=== PATIENT | female | born 1965 | race Caucasian/White ===

== ENCOUNTER → 2018-01-04 10:20 | Outpatient (CLI) | payer MEDICARE, SELFPAY ==
--- NOTE | 2018-01-04 10:27 | XR_ITS ---
XR chest 2V Ordering Physician: LIONEL Maya Patient Age: 52 years: Female HISTORY: ITS.REASON: LT RIB PAIN Left rib pain left chest pain fell on left side 1 week ago when she reached for something. TECHNIQUE: PA and lateral chest COMPARISON :June 2014 chest PA and lateral. Portable chest 09/29/2014. Rib series October [address] abdomen which includes lung bases FINDINGS No discrete acute findings in the chest. No new findings since 2013. No pneumothorax. No definitive pleural effusion... Question mild chronic blunting the right posterior sulcus . No obvious rib fracture on the standard chest film. Underlying COPD & chronic changes are again noted. Coarsening of markings and fibrotic appearing changes most evident toward the lung bases along with some minimal linear scarring lung bases. The heart is normal size. There is normal pulmonary vascularity. Hilar regions appear stable. Calcified azygous node reflects old remote disease. Mediastinum unremarkable. Chest wall and T-spine stable. IMPRESSION Nothing definitely acute. . COPD with chronic lung changes. Fibrotic changes and scarring most evident towards the lung bases In regards to recent left chest no obvious rib fracture, no pneumothorax. No pleural effusion
== END ==
PROVIDERS: PCP Family Medicine; Visit Provider Physician Assistant
DX: R07.81 Pleurodynia (principal)
CPT/HCPCS: 71046

== ENCOUNTER 2018-07-31 15:15 | Observation (INO) ==
--- NOTE | 2018-07-31 16:25 | History & Physical Report ---
*Admission Date: 07/31/18 <Christine Harper 07/31/18 16:45> *Chief complaint: Abdominal pain with intractable nausea and vomiting <Christine Harper 07/31/18 16:45> *History of present illness: Ms. Serrato is a 53-year-old female with a history of multiple sclerosis, mitral valve prolapse, diverticulosis, hypertension, hyperlipidemia, and persistent asthmatic bronchitis who initially presented to [facility] emergency room in the early a.m. of 07/31/2018 with mild abdominal pain of a couple of days duration and then followed by nausea and vomiting. She described having abdominal pain times 3 days which really progressed withni a few hours prior to presentation. White blood cell count was 13,000. She was given 2 L of IV fluids, Toradol and Zofran IV. CT of the abdomen revealed mildly distended small bowel loop in the lower abdomen with differential to include partial small bowel obstruction versus enteritis. Patient refused admission at this point. Patient then presented to the office of [facility] and was seen by Dr. Norton. At time of this presentation patient was having severe abdominal pain localized around her umbilicus. She describes having 2 large stools yesterday. She gave herself an enema without results today. She was concerned that her colon had ruptured. She continued to vomit and had been unable to retain liquids. She denied hematemesis, melena, and hematochezia. She denied fever. At this time patient was agreeable to admission to [facility] and was admitted. <Christine Harper 07/31/18 16:45> [facility] History Medical History: Reports:: Gastroesophageal Reflux Disease(GERD), Hypertension, Kidney Stones Denies:: Atherosclerotic Heart Disease, Cancer, Diabetes Mellitus Type 1, Diabetes Mellitus Type 2 <Christine Harper 07/31/18 16:45> Have you ever received a pneumonia vaccine?: No <Christine Harper 07/31/18 16:45> Have you received a flu vaccine this season?: No <Christine Harper 07/31/18 16:45> Laterality Cases: Bilateral: Carpal Tunnel Release <Christine Harper 07/31/18 16:45> Other Surgeries: Yes: Cardiac Catheterization, Cholecystectomy, Hysterectomy- Total, Tubal Ligation, Other <Christine Harper 07/31/18 16:45> Amputation: No <HarperChristine 07/31/18 16:45> Comment: D&C in 2003; hemicolectomy with colostomy for ruptured diverticulitis in 2004; reversal of the colostomy 2005; bladder and urethra procedure 2011 <MeredithChristine 07/31/18 16:45> - *Social History Educational Level: Completed High School <MeredithChristine 07/31/18 16:45> Smoking Status: Current every day smoker <Harper,Christine 07/31/18 16:45> Tobacco Type: cigarettes <Harper,Christine 07/31/18 16:45> Alcohol Intake: never <MeredithChristine 07/31/18 16:45> Occupational Status: disabled <Harper,Christine 07/31/18 16:45> Housing: house <Harper,Christine 07/31/18 16:45> Household Members: spouse <Harper,Christine 07/31/18 16:45> Travel in the last 8 weeks: None <Harper,Christine 07/31/18 16:45> - Psychiatric History Expresses thoughts of harming self/others: None <Harper,Christine 07/31/18 16:45> Suicide Plan Description: No Plan <HarperChristine 07/31/18 16:45> *Family Hx:: Cancer, Coronary Artery Disease, Diabetes <Harper,Christine 07/31/18 16:45> Review of Systems - Constitutional Denies fever(s), Denies headache(s) <Christine Harper 07/31/18 16:45> - ENT Denies ear pain, Denies nasal congestion, Denies sore throat <MeredithChristine 07/31/18 16:45> - *Cardiovascular Denies chest pain, Denies shortness of breath <Christine Harper 07/31/18 16:45> - *Respiratory Reports cough, Denies chest congestion, Denies shortness of breath <Christine Harper 07/31/18 16:45> - *Gastrointestinal Reports abdominal pain (Comes in waves and is severe), Reports constipation, Reports vomiting <Christine Harper 07/31/18 16:45> - *Genitourinary Denies difficulty urinating <HarperChristine dietz - 07/31/18 16:45> - *Musculoskeletal Denies abnormal walking <HarperChristine - 07/31/18 16:45> - *Neurologic Denies abnormal walking, Denies dizziness <Christine Harper - 07/31/18 16:45> Meds Home Medications Medication Instructions Recorded Confirmed Type Bisoprol/Hydrochlorothiazide 1 each PO DAILY 07/30/18 07/31/18 History [Bisoprolol-Hctz 2.5-6.25 mg Tb] Aspirin [Aspirin 81mg chewable 81 mg PO DAILY 07/31/18 07/31/18 History tab] Esomeprazole Magnesium [Nexium] 40 mg PO DAILY PRN 07/31/18 07/31/18 History Mometasone/Formoterol [Dulera 100 8.8 gm IH BID 07/31/18 07/31/18 History Mcg/5 Mcg Inhaler] <Martinez Norton - 07/31/18 17:09> Allergies Allergy/AdvReac Type Severity Reaction Status Date / Time hydrocodone [From LORTAB] Allergy Mild NA-NAUSEA/V Verified 07/31/18 00:44 OMITING <Martinez Norton - 07/31/18 17:09> Exam Vital signs and Labs for Last 24 Hours: Temp Pulse Resp BP Pulse Ox 97.9 F 73 22 134/117 H 98 07/31/18 15:52 07/31/18 15:52 07/31/18 15:52 07/31/18 15:52 07/31/18 15:52 Laboratory Results - last 24 hr 07/31/18 16:05: WBC 13.5 H, RBC 4.93, Hgb 15.1, Hct 45.7, MCV 92.7, MCH 30.6, MCHC 33.0, RDW 13.0, Plt Count 271, MPV 6.8 L, Neut % (Auto) 76.0, Lymph % (Auto) 17.5, Kle[place] % (Auto) 5.4, Eos % (Auto) 0.7, Baso % (Auto) 0.4, Neut # (Auto) 10.3 H, Lymph # (Auto) 2.4, Kle[place] # (Auto) 0.7, Eos # (Auto) 0.1, Baso # (Auto) 0.1 07/31/18 16:05: Sodium 141, Potassium 3.8, Chloride 104, Carbon Dioxide 26, Anion Gap 14.8, BUN 15, Creatinine 0.73, Estimated Creat Clear 130, Estimated GFR 83, Est GFR ( Amer) 100, Glucose 128 H, Calcium 8.7, Total Bilirubin 0.7, AST 16, ALT 23, Alkaline Phosphatase 82, Total Protein 7.4, Albumin 3.5, Globulin 3.9 H, Albumin/Globulin Ratio 0.9 L <Martinez Norton - 07/31/18 17:09> Temp Pulse Resp BP Pulse Ox 97.9 F 73 22 134/117 H 98 07/31/18 15:52 07/31/18 15:52 07/31/18 15:52 07/31/18 15:52 07/31/18 15:52 <MeredithChristine - 07/31/18 16:45> I & O for Last 24 hours: Intake & Output 07/29/18 07/30/18 07/31/18 08/01/18 11:59 11:59 11:59 11:59 Weight 208 lb <Martinez Norton - 07/31/18 17:09> Intake & Output 07/29/18 07/30/18 07/31/18 08/01/18 11:59 11:59 11:59 11:59 Weight 208 lb <HarperChristine - 07/31/18 16:45> - Constitutional obese <Christine Harper 07/31/18 16:45> Comments: Sitting in chair in exam room. She is very uncomfortable and having difficulty sitting still. <Christine Harper - 07/31/18 16:45> - *Routine HEENT Exam Head: Present: normocephalic, atraumatic <Christine Harper 07/31/18 16:45> Eye: Present: PERRL. Absent: conjunctival icterus, scleral injection <Christine Harper 07/31/18 16:45> ENT: Present: mucous membranes moist, oropharynx clear <Christine Harper 07/31/18 16:45> - *Routine Neck Exam Present: supple. Absent: carotid bruit, lymphadenopathy, thyromegaly <Christine Harper 01/15/19 16:45> - *Routine Respiratory Exam Present: CTA bilaterally (Anteriorly and posteriorly) <Christine Harper 07/31/18 16:45> - *Routine Cardiovascular Exam Present: RRR <Christine Harper 07/31/18 16:45> - *Routine Abdominal Exam Present: tenderness (Across mid abdomen), distended <Christine Harper 07/31/18 16:45> Comments: Obese <Christine Harper 07/31/18 16:45> - *Routine Extremities Exam Absent: edema, calf tenderness <Christine Harper 07/31/18 16:45> - *Routine Neurological Exam Present: alert, oriented X3 <Christine Harper 07/31/18 16:45> Assessment and Plan (1) Abdominal pain Current visit: No Status: Acute Qualifiers: Abdominal location: periumbilical Qualified Code(s): R10.33 - Periumbilical pain Category: Medical Code(s): R10.9 - Unspecified abdominal pain (2) Intractable nausea and vomiting Current visit: Yes Status: Acute Category: Medical Code(s): R11.2 - Nausea with vomiting, unspecified (3) Hypertension Current visit: Yes Status: Chronic Category: Medical Code(s): I10 - Essential (primary) hypertension (4) Multiple sclerosis Current visit: Yes Status: Chronic Category: Medical Code(s): G35 - Multiple sclerosis <Martinez Norton - 07/31/18 17:09> (1) Abdominal pain Current visit: No Status: Acute Qualifiers: Abdominal location: periumbilical Qualified Code(s): R10.33 - Periumbilical pain Category: Medical Code(s): R10.9 - Unspecified abdominal pain (2) Intractable nausea and vomiting Current visit: Yes Status: Acute Category: Medical Code(s): R11.2 - Nausea with vomiting, unspecified (3) Hypertension Current visit: Yes Status: Chronic Category: Medical Code(s): I10 - Essential (primary) hypertension (4) Multiple sclerosis Current visit: Yes Status: Chronic Category: Medical Code(s): G35 - Multiple sclerosis <Christine Harper 07/31/18 16:18> - Assessment and plan all Dx Assessment and Plan for all problems:: Saw patient in office and here in hospital, will start [facility] at[facility]. <Martinez Norton - 07/31/18 17:09> Admission of patient to acute care. She will have an acute abdominal series. She will give be given anti-medics and pain medicine. She will be n.p.o. NG tube is indicated by imaging and symptoms. <Christine Harper - 07/31/18 16:45>
[2018-07-31 16:34] LABS: Basophils # 0.1 K/mm3 (0-0.2); Basophils % 0.4 % (0.1-2.0); Eosinophils # 0.1 K/mm3 (0.0-0.4); Eosinophils % 0.7 % (0.1-12.0); Hematocrit 45.7 % (37.0-47.0); Hemoglobin 15.1 g/dL (12.2-16.2); Lymphocytes # 2.4 K/mm3 (0.7-4.5); Lymphocytes % 17.5 % (10-50); Mean Corpuscular Hemoglobin 30.6 pg (27.0-31.2); Mean Corpuscular Volume 92.7 fl (81-99); Mean Platelet Volume 6.8 fl (7.4-10.4); Monocytes # 0.7 K/mm3 (0.1-1.0); Monocytes % 5.4 % (1.7-9.3); Neutrophils # 10.3 K/mm3 (1.8-7.8); Platelet Count 271 K/mm3 (142-424); Red Blood Count 4.93 M/mm3 (4.20-5.40); White Blood Count 13.5 K/mm3 (4.8-10.8)
[2018-07-31 16:43] LABS: Albumin Level 3.5 gm/dL (3.4-5.0); Albumin/Globulin Ratio 0.9 (1.1-1.8); Anion Gap 14.8 mEq/L (5-15); Bilirubin,Total 0.7 mg/dL (0.2-1.0); Calcium 8.7 mg/dL (8.5-10.1); Globulin 3.9 gm/dl (1.3-3.2); Potassium 3.8 mmoL/L (3.5-5.1); Total Protein,Serum 7.4 gm/dL (6.4-8.2)
[2018-08-01 07:08] LABS: Calcium 7.9 mg/dL (8.5-10.1)
[2018-08-01 07:19] LABS: Basophils % 0.3 % (0.1-2.0); Eosinophils # 0.3 K/mm3 (0.0-0.4); Eosinophils % 2.4 % (0.1-12.0); Lymphocytes # 2.2 K/mm3 (0.7-4.5); Lymphocytes % 20.7 % (10-50); Mean Corpuscular HGB Conc 32.4 g/dL (31.8-35.4); Mean Corpuscular Hemoglobin 30.5 pg (27.0-31.2); Mean Corpuscular Volume 94.1 fl (81-99); Mean Platelet Volume 6.9 fl (7.4-10.4); Monocytes # 0.7 K/mm3 (0.1-1.0); Monocytes % 6.3 % (1.7-9.3); Neutrophils # 7.6 K/mm3 (1.8-7.8); Neutrophils % 70.4 % (37.0-80.0); Platelet Count 202 K/mm3 (142-424); Red Blood Count 4.26 M/mm3 (4.20-5.40); Red Cell Distribution Width 13.1 % (11.5-17.5); White Blood Count 10.8 K/mm3 (4.8-10.8)
[2018-08-01 07:27] LABS: Hemoglobin 13.1 g/dL (12.2-16.2)
--- NOTE | 2018-08-01 07:53 | Pharmacy Consult Notes ---
[facility] Pharmacy VTE Monitoring - Patient Demographics Admission date: 07/31/18 Report Date: 08/01/18 Time: 07:53 Allergies/Adverse Reactions: Patient Allergies hydrocodone [From LORTAB] Allergy (Mild, Verified 07/31/18 00:44) NA-NAUSEA/VOMITING Height: 1.57 m Weight: 94.347 kg Patient Problems: Current Active Problems Intractable nausea and vomiting (Acute) Hypertension (Chronic) Multiple sclerosis (Chronic) - VTE Risk Labs: VTE Related Lab Results Hgb 13.1 g/dL (12.2-16.2) D 08/01/18 06:15 Hct 40.0 % (37.0-47.0) 08/01/18 06:15 Plt Count 202 K/mm3 (142-424) D 08/01/18 06:15 BUN 12 mg/dL (7-18) 08/01/18 06:15 Creatinine 0.61 mg/dL (0.55-1.02) 08/01/18 06:15 Estimated Creat Clear 155 mL/min (50-200) 08/01/18 06:15 Was VTE Risk Assessment Performed: Yes VTE Score: 5 VTE Risk Level: Low Risk - Prophylaxis VTE Prophylaxis Ordered?: Yes Types of VTE Prophylaxis: TEDS Knee High Location of Applied Device: Bilateral Lower Extremeties - VTE Diagnosis Confirmed Treatment or plan recommended: Continue Current Treatment
--- NOTE | 2018-08-01 07:53 | Progress Note ---
<Christine Harper - Last Filed: 08/01/18 07:49> Internal Medicine - PN: Subj *Date: 08/01/18 *Time: 07:50 Interval history: Patient is feeling much better today. She has no abdominal pain. Bowels began to be last night in addition to increased amount of flatus. She did not sleep much last night because she was up and down to the bathroom. She is also voiding without difficulty. She has had no further nausea or vomiting vomiting after arriving to floor yesterday. She is asking for clear liquids and coffee this a.m. She does have a headache but feels this is due to her not eating and drinking and no coffee. White blood cell count is normal today. Electrolytes are normal. Patient states she blames this on eating at [employer] on 07/28/2018. She states all her problems started then. Exam Vital signs and Labs for Last 24 Hours: Temp Pulse Resp BP Pulse Ox 98.3 F 68 18 119/42 L 95 08/01/18 03:36 08/01/18 03:36 08/01/18 03:36 08/01/18 03:36 08/01/18 03:36 Laboratory Results - last 24 hr 07/31/18 16:05: WBC 13.5 H, RBC 4.93, Hgb 15.1, Hct 45.7, MCV 92.7, MCH 30.6, MCHC 33.0, RDW 13.0, Plt Count 271, MPV 6.8 L, Neut % (Auto) 76.0, Lymph % (Auto) 17.5, [place] % (Auto) 5.4, Eos % (Auto) 0.7, Baso % (Auto) 0.4, Neut # (Auto) 10.3 H, Lymph # (Auto) 2.4, T[place] # (Auto) 0.7, Eos # (Auto) 0.1, Baso # (Auto) 0.1 07/31/18 16:05: Sodium 141, Potassium 3.8, Chloride 104, Carbon Dioxide 26, Anion Gap 14.8, BUN 15, Creatinine 0.73, Estimated Creat Clear 130, Estimated GFR 83, Est GFR ( Amer) 100, Glucose 128 H, Calcium 8.7, Total Bilirubin 0.7, AST 16, ALT 23, Alkaline Phosphatase 82, Total Protein 7.4, Albumin 3.5, Globulin 3.9 H, Albumin/Globulin Ratio 0.9 L 08/01/18 06:15: WBC 10.8, RBC 4.26, Hgb 13.1 D, Hct 40.0, MCV 94.1, MCH 30.5, MCHC 32.4, RDW 13.1, Plt Count 202 D, MPV 6.9 L, Neut % (Auto) 70.4, Lymph % (Auto) 20.7, T[place] % (Auto) 6.3, Eos % (Auto) 2.4, Baso % (Auto) 0.3, Neut # (Auto) 7.6, Lymph # (Auto) 2.2, T[place] # (Auto) 0.7, Eos # (Auto) 0.3, Baso # (Auto) 0.0 08/01/18 06:15: Sodium 142, Potassium 4.0, Chloride 109 H, Carbon Dioxide 23, Anion Gap 14.0, BUN 12, Creatinine 0.61, Estimated Creat Clear 155, Estimated GFR 102, Est GFR ( Amer) 123 D, Glucose 110 H, Calcium 7.9 L I & O for Last 24 hours: Intake & Output 07/29/18 07/30/18 07/31/18 08/01/18 11:59 11:59 11:59 11:59 Intake Total 2581 / 2581 Balance 2581 / 2581 Weight 208 lb Radiology Reports for the Last 24 Hours: 07/31/2018 acute abdominal series IMPRESSION: Nondistended small bowel loops noted in the left lower quadrant with air-fluid levels possibly related to enteritis not significantly changed - Constitutional no acute distress Comments: Sitting in chair in her room. Appears very comfortable. - *Routine Respiratory Exam Present: CTA bilaterally (Anteriorly and posteriorly) - *Routine Cardiovascular Exam Present: RRR - *Routine Abdominal Exam Present: soft, normoactive bowel sounds. Absent: tenderness, distended, rebound, guarding - *Routine Extremities Exam Absent: edema, calf tenderness - *Routine Neurological Exam Present: alert, oriented X3 Assessment and Plan (1) Abdominal pain Current visit: No Status: Acute Qualifiers: Abdominal location: periumbilical Qualified Code(s): R10.33 - Periumbilical pain Category: Medical Code(s): R10.9 - Unspecified abdominal pain (2) Intractable nausea and vomiting Current visit: Yes Status: Acute Category: Medical Code(s): R11.2 - Nausea with vomiting, unspecified (3) Hypertension Current visit: Yes Status: Chronic Category: Medical Code(s): I10 - Essential (primary) hypertension (4) Multiple sclerosis Current visit: Yes Status: Chronic Category: Medical Code(s): G35 - Multiple sclerosis - Assessment and plan all Dx Assessment and Plan for all problems:: We will try clear liquids this a.m. and see how she does. Samples have been sent for diarrhea panel <Martinez Norton - Last Filed: 08/01/18 08:53> Exam Vital signs and Labs for Last 24 Hours: Temp Pulse Resp BP Pulse Ox 98.3 F 64 17 97/5 L 93 L 08/01/18 08:00 08/01/18 08:00 08/01/18 08:00 08/01/18 08:00 08/01/18 08:00 Laboratory Results - last 24 hr 07/31/18 16:05: WBC 13.5 H, RBC 4.93, Hgb 15.1, Hct 45.7, MCV 92.7, MCH 30.6, MCHC 33.0, RDW 13.0, Plt Count 271, MPV 6.8 L, Neut % (Auto) 76.0, Lymph % (Auto) 17.5, T[place] % (Auto) 5.4, Eos % (Auto) 0.7, Baso % (Auto) 0.4, Neut # (Auto) 10.3 H, Lymph # (Auto) 2.4, Tama # (Auto) 0.7, Eos # (Auto) 0.1, Baso # (Auto) 0.1 07/31/18 16:05: Sodium 141, Potassium 3.8, Chloride 104, Carbon Dioxide 26, Anion Gap 14.8, BUN 15, Creatinine 0.73, Estimated Creat Clear 130, Estimated GFR 83, Est GFR ( Amer) 100, Glucose 128 H, Calcium 8.7, Total Bilirubin 0.7, AST 16, ALT 23, Alkaline Phosphatase 82, Total Protein 7.4, Albumin 3.5, Globulin 3.9 H, Albumin/Globulin Ratio 0.9 L 08/01/18 06:15: WBC 10.8, RBC 4.26, Hgb 13.1 D, Hct 40.0, MCV 94.1, MCH 30.5, MCHC 32.4, RDW 13.1, Plt Count 202 D, MPV 6.9 L, Neut % (Auto) 70.4, Lymph % (Auto) 20.7, T[place] % (Auto) 6.3, Eos % (Auto) 2.4, Baso % (Auto) 0.3, Neut # (Auto) 7.6, Lymph # (Auto) 2.2, T[place] # (Auto) 0.7, Eos # (Auto) 0.3, Baso # (Auto) 0.0 08/01/18 06:15: Sodium 142, Potassium 4.0, Chloride 109 H, Carbon Dioxide 23, Anion Gap 14.0, BUN 12, Creatinine 0.61, Estimated Creat Clear 155, Estimated GFR 102, Est GFR ( Amer) 123 D, Glucose 110 H, Calcium 7.9 L I & O for Last 24 hours: Intake & Output 07/29/18 07/30/18 07/31/18 08/01/18 11:59 11:59 11:59 11:59 Intake Total 1 / 258 Balance 2580 / 258 Weight 208 lb Assessment and Plan (1) Abdominal pain Current visit: No Status: Acute Qualifiers: Abdominal location: periumbilical Qualified Code(s): R10.33 - Periumbilical pain Category: Medical Code(s): R10.9 - Unspecified abdominal pain (2) Intractable nausea and vomiting Current visit: Yes Status: Acute Category: Medical Code(s): R11.2 - Nausea with vomiting, unspecified (3) Hypertension Current visit: Yes Status: Chronic Category: Medical Code(s): I10 - Essen tial (primary) hypertension (4) Multiple sclerosis Current visit: Yes Status: Chronic Category: Medical Code(s): G35 - Multiple sclerosis - Assessment and plan all Dx Assessment and Plan for all problems:: Saw patient, agree with above note. Advance diet.
--- NOTE | 2018-08-02 22:10 | Discharge Summary ---
General - General Admission date:: 07/31/18 Discharge date: 08/01/18 HPI HPI: Ms. Serrato is a 53-year-old female with a history of multiple sclerosis, mitral valve prolapse, diverticulosis, hypertension, hyperlipidemia, and persistent asthmatic bronchitis who initially presented to [facility] emergency room in the early a.m. of 07/31/2018 with mild abdominal pain of a couple of days duration and then followed by nausea and vomiting. She described having abdominal pain times 3 days which really progressed within a few hours prior to presentation. White blood cell count was 13,000. She was given 2 L of IV fluids, Toradol and Zofran IV. CT of the abdomen revealed mildly distended small bowel loop in the lower abdomen with differential to include partial small bowel obstruction versus enteritis. Patient refused admission at this point. Patient then presented to the office of [facility] and was seen by Dr. Norton. At time of this presentation patient was having severe abdominal pain localized around her umbilicus. She describes having 2 large stools yesterday. She gave herself an enema without results today. She was concerned that her colon had ruptured. She continued to vomit and had been unable to retain liquids. She denied hematemesis, melena, and hematochezia. She denied fever. At this time patient was agreeable to admission to [facility] and was admitted. Hospital Course Hospital Course: An acute abdominal series was ordered. She was started on pain medication and antiemetics IV. She was kept n.p.o. She was also started on Rocephin. By the next day, the patient felt much better. Her acute abdominal series showed nondistended small bowel loops in the left lower quadrant with air-fluid levels possibly related to enteritis. It was not significantly changed from the previous x-ray. She had no abdominal pain and her bowels had begun to move. She had no further nausea or vomiting. Her white blood cell count normalized and her electrolytes were normal as well. A diarrhea panel was ordered and was normal. She was started on clear liquids and tolerated this well. She was stable to be discharged home on Ceftin and Zofran. Objective Vital signs: Temp Pulse Resp BP Pulse Ox 98.3 F 64 17 97/54 L 93 L 08/01/18 08:00 08/01/18 08:00 08/01/18 08:00 08/01/18 08:00 08/01/18 08:00 Narrative: - Constitutional obese Comments: Sitting in chair in exam room. She is very uncomfortable and having difficulty sitting still. - *Routine HEENT Exam Head: Present: normocephalic, atraumatic Eye: Present: PERRL. Absent: conjunctival icterus, scleral injection ENT: Present: mucous membranes moist, oropharynx clear - *Routine Neck Exam Present: supple. Absent: carotid bruit, lymphadenopathy, thyromegaly - *Routine Respiratory Exam Present: CTA bilaterally (Anteriorly and posteriorly) - *Routine Cardiovascular Exam Present: RRR - *Routine Abdominal Exam Present: tenderness (Across mid abdomen), distended Comments: Obese - *Routine Extremities Exam Absent: edema, calf tenderness - *Routine Neurological Exam Present: alert, oriented X3 DS: Diagnosis - Discharge Diagnosis (1) Abdominal pain Status: Acute (2) Intractable nausea and vomiting Status: Acute (3) Hypertension Status: Chronic (4) Multiple sclerosis Status: Chronic Discharge Plan - Patient Discharge Instructions ACTIVITY: Continue current activity DIET: continue same diet Patient Instructions: DI for Abdominal Pain-Adult, DI for Bacterial Gastroenteritis -- Adult - Follow up Plan Follow up with: Martinez Norton MD [Primary Care Provider] - 2 weeks Disposition: Home, Self-Assisted Medications: Home Medications Medication Instructions Recorded Confirmed Type Bisoprol/Hydrochlorothiazide 1 each PO DAILY 07/30/18 07/31/18 History [Bisoprolol-Hctz 2.5-6.25 mg Tb] Aspirin [Aspirin 81mg chewable 81 mg PO DAILY 07/31/18 07/31/18 History tab] Esomeprazole Magnesium [Nexium] 40 mg PO DAILY PRN 07/31/18 07/31/18 History Mometasone/Formoterol [Dulera 100 8.8 gm IH BID 07/31/18 07/31/18 History Mcg/5 Mcg Inhaler] Ondansetron HCl [Zofran 4mg Tab] 4 mg PO Q8HP PRN #10 tab 08/01/18 Rx cefUROXime axetil [Ceftin 500mg 500 mg PO BID #10 tab 08/01/18 Rx Tab (GEQ)] Prescriptions/Medication Reconciliation: New cefUROXime axetil [Ceftin 500mg Tab (GEQ)] 500 mg PO BID #10 tab Ondansetron HCl [Zofran 4mg Tab] 4 mg PO Q8HP PRN #10 tab PRN Reason: Nausea And Vomiting Continue Esomeprazole Magnesium [Nexium] 40 mg PO DAILY PRN PRN Reason: gerd Mometasone/Formoterol [Dulera 100 Mcg/5 Mcg Inhaler] 8.8 gm IH BID Bisoprol/Hydrochlorothiazide [Bisoprolol-Hctz 2.5-6.25 mg Tb] 1 each PO DAILY Aspirin [Aspirin 81mg chewable tab] 81 mg PO DAILY
== END 2018-08-01 14:18 | disposition home or self-care (01) ==
LOC: 2ND
PROVIDERS: ADMIT Family Medicine; ATTEND Family Medicine
CPT/HCPCS: 36415; 74021; 74022; 80048; 80053; 85025; 87507; G0378; J2405

== ENCOUNTER → 2018-10-15 08:45 | Outpatient (CLI) | payer MEDICARE, SELFPAY ==
--- NOTE | 2018-10-15 08:52 | CT_ITS ---
EXAM: CT LUNG LOW DOSE WO CONTRAST TECHNIQUE: The exam was performed on a GE Light Speed [address] scanner using 3.0 mGy CTDI. A low dose helical CT CHEST was performed on a multi-detector scanner. All CT scans at this facility use one or more dose reduction techniques, viz.: automated exposure control, ma/kV adjustment per patient size (including targeted exams where dose is matched to indication, i.e. head) or iterative reconstruction technique. The LDCT was performed in a facility that meets the criteria for the screening program. Data regarding this exam was submitted to ACR which is an approved registry. The order for this exam indicates that it came as a result of a lung cancer screening counseling shard decision-making visit that included all the elements required of such a visit including smoking cessation. The radiologist interpreting this exam meets the [facility] criteria for the LDCT lung cancer screening program. The exam is reported using the Lung-RADS classification scale and reported to the ACR registry. NOTE: This study was performed for the specific purposes of lung cancer screening and is not an alternative to diagnostic chest CT. RADIATION DOSE: CTDI vol(CT dose Index-volume) = 2.9mGy DLP (Dose Length Product) = 108.64 mGy-cm COMPARISON: No prior CT HISTORY: 1 pack per day x40 years equal 40 pack-year history. Patient currently smoking. Asymptomatic with no signs or symptoms of lung cancer. FINDINGS: Patient's large girth decreases decreases resolution LUNG NODULE SURVEY/EVALUATION. No suspicious lung mass or nodule. There are calcified granulomas seen bilaterally most evident at the anterior right lung. Right lun mm calcified granuloma at the periphery of the right lower lobe axial slice 58 . 4.3 mm calcified granuloma, anteriorly at the RML; with 2 or 3 smaller calcified granuloma just above this measuring 3.5 mm. There is some scarring in this region account for other linear densities. More superiorly at the RUL small calcified granuloma measuring up to 4 mm size. Central calcification. Minimal scarring density about this area but it has overall appearance compatible with benign granuloma process There is a small flat noncalcified nodule measuring up to 5.9 mm times less than 2 mm height this is seen along the minor fissure and most compatible with a benign fissure node/nodule. It can be followed in one year. There is also a similar 5 mm x 2.5 mm mm nodule along the major fissure axial image 42, sagittal 28 also reflect a small benign node nodule at the fissure. This can be followed in one year is well. Tiny 3 mm noncalcified nodule likely related to scarring seen at the periphery of the right apex axial image 15 Left Lun.6 mm calcified renal with the posterior aspect mid LLL. 5.8 mm calcified granuloma at the medial right lung base above the hemidiaphragm. LUNG PARENCHYMA Fairly pronounced emphysematous changes are seen throughout. Lung soria bilaterally . patchy areas of most likely fibrotic scarring and about periphery both lung field. Slight honeycomb appearance about the periphery of the upper lobes.. I doubt active infiltrate but difficult to exclude with these patchy areas of subtle peripheral density. Pleura. No pleural effusion. No pleural findings of significance. Minor scarring . Airways. Of some borderline airway thickening most evident central and towards infrahilar region. No intrabronchial lesions evident. MEDIASTINUM/KODAK: No significant mediastinal mass or adenopathy. Calcified granulomatous nodes at hilum and mediastinal regions: A generous at 22 mm height X 15 mm prominent calcified node right paratracheal /azygos region reflects old granulomatous disease. As do the multiple
--- NOTE | 2018-10-15 08:53 | XR_ITS ---
Your patient Celeste Serrato completed a BMD test on using the [employer] DXA System (analysis version: 13.31) manufactured by [id number]. The following summarizes the results of our evaluation. HISTORY: This is a 53 years year old lady who is postmenopausal. She is on estrogen replacement therapy. TECHNIQUE: Bone mineral density was measured at both hips at several locations as well as individual levels of the lumbar spine. The lowest densities are emphasized and reported on this dictated report to summarize the patients' bone density. The full study and information is available on PACS including standard treatment recommendations and standard follow up recommendations. ASSESSMENT: Lumbar spine: The areas BMD L1-L4 is 1.098 g centimeters squared with a T score of -0.7. FEMUR NECK LEFT: The BMD measured at Femur Neck Left is 0.823 g/cm with a T-score of - -1.5. The mean bone density of the right femoral neck is 0.801 g centimeters square with T score of -1.7. Site Region Measured Date Measured Age Distal Femur 10/15/2018 8:53 AM 1965 WHO Young Adult Classification T-score Normal WHO criteria for post-menopausal, Women: Normal: T-score at or above -1 SD Osteopenia: T-score between -1 and -2.5 SD Osteopenia: T-score at or below -2.5 SD RECOMMENDATIONS: All patients should ensure an adequate intake of dietary calcium(1200mg/d) and vitamin D (400-800 IU daily). Effective therapies for the prevention of osteoporosis include biphosphonates (Fosamax and Actonel) and Evista. Hormone therapy may be an option based on review of risks and benefits of treatment. IMPRESSION: Normal study lumbar spine, osteopenia values for both hips Suggest follow-up in 2 years.
--- NOTE | 2018-10-15 08:53 | MM_ITS ---
MM Dig screening mamm BI w/CAD CAD Screening COMPARISON: Digital mammograms with CAD 12/11/2012 and 05/19/2011 INDICATION: Is a history of breast cancer in patient's sister diagnosed before menopause. TECHNIQUE: Standard CC and MLO images were obtained. R2 CAD reviewed. FINDINGS: The breasts are composed primarily of fat with very minimal scattered fiber glandular densities in each breast. There is no suspicious lesion and there are no suspicious microcalcifications. IMPRESSION: Fatty type breast parenchyma with no suspicious lesion seen BI-RADS Category: 1 Negative RECOMMENDED FOLLOW-UP: 1YR - 1 YEAR FOLLOW-UP (A letter has been sent to the patient regarding results of the study.)
== END ==
PROVIDERS: PCP Family Medicine; Visit Provider Family Medicine
DX: Z87.891 Personal history of nicotine dependence (principal); Z12.31 Encounter for screening mammogram for malignant neoplasm of breast; M81.0 Age-related osteoporosis without current pathological fracture
CPT/HCPCS: 77067; 77080

== ENCOUNTER → 2019-03-06 10:44 | Outpatient (CLI) | payer MEDICARE, SELFPAY ==
[2019-03-06 11:35] VITALS: PULSE 73; PULSE 77
== END ==
PROVIDERS: PCP Family Medicine; Visit Provider Family Medicine
DX: R05 Cough (principal); R06.02 Shortness of breath
CPT/HCPCS: 94060; 94640

== ENCOUNTER 2019-07-06 20:15 | Observation (INO) ==
[2019-07-06 20:48] LABS: Basophils # 0.1 K/mm3 (0-0.2); Basophils % 0.5 % (0.1-2.0); Eosinophils # 0.2 K/mm3 (0.0-0.4); Eosinophils % 1.7 % (0.1-12.0); Hematocrit 48.4 % (37.0-47.0); Hemoglobin 16.5 g/dL (12.2-16.2); Lymphocytes # 2.8 K/mm3 (0.7-4.5); Lymphocytes % 19.5 % (10-50); Mean Corpuscular Volume 91.7 fl (81-99); Mean Platelet Volume 7.6 fl (7.4-10.4); Monocytes # 0.8 K/mm3 (0.1-1.0); Monocytes % 5.3 % (1.7-9.3); Neutrophils # 10.5 K/mm3 (1.8-7.8); Platelet Count 273 K/mm3 (142-424); Red Blood Count 5.27 M/mm3 (4.20-5.40); Red Cell Distribution Width 13.1 % (11.5-17.5); White Blood Count 14.4 K/mm3 (4.8-10.8)
[2019-07-06 20:55] LABS: Albumin Level 3.7 gm/dL (3.4-5.0); Albumin/Globulin Ratio 0.8 (1.1-1.8); Anion Gap 13.1 mEq/L (5-15); Bilirubin,Total 0.4 mg/dL (0.2-1.0); C-Reactive Protein 0.5 mg/dL (0.0-0.9); Calcium 8.8 mg/dL (8.5-10.1); Globulin 4.4 gm/dl (1.3-3.2); Total Protein,Serum 8.1 gm/dL (6.4-8.2)
[2019-07-06 21:18] LABS: Erythrocyte Sedimentation Rate 17 mm/hr (0-30)
--- NOTE | 2019-07-06 21:24 | Emergency Department Note ---
ED Disposition Clinical Impression: SBO (small bowel obstruction), Enteritis, Spigelian hernia Disposition: Admitted as Observation Condition on Discharge: Good Referrals: Martinez Norton MD [Primary Care Provider] - - Critical Care Critical Care Time: No Attestation: On 07/06/19, the high probability of a clinically significant, sudden or life threatening deterioration of the following system(s) required my full and direct attention, intervention and personal management. The time I documented below is in addition to time spent performing reported procedures but includes the following listed in this critical care notation. Medical Decision Making - Medical Records Medical records reviewed: Yes: I reviewed the patient's medical records. - Davis Inquiry Pt receiving controlled substance: No Vital Signs: 07/06/19 20:23 Temperature 98.1 F Temperature Source Oral Pulse Rate [Right Brachial] 73 Respiratory Rate 18 Blood Pressure [Right Arm] 103/62 L Blood Pressure Mean [Right Arm] 75 02 Sat by Pulse Oximetry 98 Oxygen Delivery Method Room Air - Lab Data Lab results reviewed: Yes: I reviewed the patient's lab results. Lab Results 07/06/19 20:20: Troponin I < 0.02 07/06/19 20:29: WBC 14.4 H, RBC 5.27, Hgb 16.5 H, Hct 48.4 H, MCV 91.7, MCH 31.2, MCHC 34.0, RDW 13.1, Plt Count 273, MPV 7.6, Neut % (Auto) 73.0, Lymph % (Auto) 19.5, [place] % (Auto) 5.3, Eos % (Auto) 1.7, Baso % (Auto) 0.5, Neut # (Auto) 10.5 H, Lymph # (Auto) 2.8, [place] # (Auto) 0.8, Eos # (Auto) 0.2, Baso # (Auto) 0.1, ESR 17 07/06/19 20:29: Sodium 140, Potassium 4.1, Chloride 102, Carbon Dioxide 29, Anion Gap 13.1, BUN 14, Creatinine 0.69, Estimated Creat Clear 137, Estimated GFR 88, Est GFR ( Amer) 106, Glucose 142 H, Calcium 8.8, Total Bilirubin 0.4, AST 13 L, ALT 18, Alkaline Phosphatase 77, C-Reactive Protein 0.5, Total Protein 8.1, Albumin 3.7, Globulin 4.4 H, Albumin/Globulin Ratio 0.8 L, Amylase 34, Lipase 67 L Result diagrams: 07/06/19 20:29 07/06/19 20:29 Orders (Tests/Meds): ED MEDICATIONS Generic Name Dose Route Start Last Admin Trade Name Freq PRN Reason Stop Dose Admin Sodium Chloride 1,000 mls @ 999 mls/hr 07/06/19 20:45 07/06/19 20:37 Sod Chlor 0.9% 1000ml Bag IV 07/06/19 21:45 999 mls/hr .Q1H1M JAMEL Administration Sodium Chloride 8 ml 07/06/19 20:40 Sodium Chloride 0.9% 10ml Vial IV 08/05/19 20:39 NEEDED PRN dilute pepcid Discontinued Medications Generic Name Dose Route Start Last Admin Trade Name Freq PRN Reason Stop Dose Admin Famotidine 20 mg 07/06/19 20:40 07/06/19 20:45 Pepcid 20mg/2ml Vial IV 07/06/19 20:41 20 mg ONCE ONE Administration Ioversol 75 ml 07/06/19 21:25 07/06/19 21:26 Rad-Optiray 350 100ml Vial IV 07/06/19 21:26 75 ml ONCE ONE Administration Protocol Ketorolac Tromethamine 30 mg 07/06/19 20:38 07/06/19 20:45 Toradol 30mg/Ml Vial IV 07/06/19 20:39 30 mg ONCE ONE Administration Metoclopramide HCl 10 mg 07/06/19 20:40 07/06/19 20:45 Reglan 10mg/2ml Vial IVP 07/06/19 20:41 10 mg ONCE ONE Administration Ondansetron HCl 4 mg 07/06/19 20:38 07/06/19 20:45 Zofran 4mg/2ml Vial IV 07/06/19 20:39 4 mg ONCE ONE Administration Sodium Chloride 10 ml 07/06/19 21:25 07/06/19 21:26 Rad-Saline Flush 10ml Syringe IV 07/06/19 21:26 10 ml ONCE ONE Administration ORDERS Category Date Time Status CT abdomen pelvis w con Stat Cat Scan 07/06/19 20:33 Taken Troponin I Q3H Lab 07/07/19 00:30 Ordered Troponin I Q3H Lab 07/07/19 03:30 Ordered Urinalysis and Microscopic Stat Lab 07/06/19 20:33 Ordered - CT Data CT Scan: Abdomen, Pelvis Time Received: 22:[address] Reviewed: Yes: I have viewed the radiologist's interpretation Preliminary Findings: Abnormal (see report - sbo vs enteritis ) - Physician Consults Physician Consulted: silviano Reason -: Admission Nausea/Vomiting/Diarrhea HPI - General Chief complaint: Abdominal Pain Stated complaint: Upper adb pain,vomitin Time Seen by Provider: 07/06/19 20:35 Mode of Arrival: Ambulatory Source of Information: Patient, Spouse, Medical Record Limitations: No Limitations Description of Symptoms (Recalled from ER Triage Doc. by RN): epigastric pain that started today. patient also states she has vomitied multiple times - History of Present Illness HPI Narrative: upper abd pain assoc with nausea and vomiting - started today - has hx of mult iple sclerosis - has same issue in past - MD complaint: nausea, vomiting, abdominal pain Onset (ago): day(s) Associated Abdominal Pain: Yes Location of pain: epigastric Severity: moderate Associated symptoms: denies other symptoms - Related Data Home Medications Medication Instructions Recorded Confirmed Bisoprolol/Hydrochlorothiazide 1 each PO DAILY 07/30/18 07/06/19 [Bisoprolol-Hctz 2.5-6.25 mg Tb] Aspirin [Aspirin 81mg chewable 81 mg PO DAILY 07/31/18 07/06/19 tab] Mometasone/Formoterol [Dulera 100 8.8 gm IH BID 07/31/18 07/06/19 Mcg/5 Mcg Inhaler] Allergies Allergy/AdvReac Type Severity Reaction Status Date / Time hydrocodone [From LORTAB] Allergy Mild NA-NAUSEA/V Verified 07/06/19 20:32 OMITING [facility] History - Hepatitis A Screen Drug use history?: No High risk sexual behaviors?: No History of sexually transmitted infection?: No Currently employed?: No Childcare worker?: No Do you have indoor plumbing?: Yes Do you have electricity?: Yes Attestation statement:: This patient has been screened for Hepatitis A risk factors. I have reviewed the patient's past medical history: Yes Medical History: Reports:: Cancer, Gastroesophageal Reflux Disease(GERD), Hypertension, Kidney Stones Denies:: Atherosclerotic Heart Disease, Diabetes Mellitus Type 1, Diabetes Mellitus Type 2 Other Medical History: Reports: Other Comment: MS Laterality Cases: Bilateral: Carpal Tunnel Release Other Surgeries: Yes: Cardiac Catheterization, Cholecystectomy, Hysterectomy- Total, Tubal Ligation, Other Amputation: No Comment: D&C in 2004; hemicolectomy with colostomy for ruptured diverticulitis in 2004; reversal of the colostomy 2005; bladder and urethra procedure 2011 - Social History Smoking Status: Current every day smoker Tobacco Type: cigarettes Alcohol Intake: never Substance Use Type: denies use Occupational Status: disabled Housing: house Household Members: spouse Family Hx:: Cancer, Coronary Artery Disease, Diabetes ROS Obtained: Yes All systems reviewed & no additional complaints - Constitutional Constitutional: Denies fever(s) - Eyes Eyes: Denies change in vision - ENT Ears, Nose, Mouth, and Throat: Denies sore throat - Cardiovascular Cardiovascular: Denies chest pain, Denies dyspnea - Respiratory Respiratory: No cough - Gastrointestinal Gastrointestingal: Reports: as per HPI, abdominal pain, nausea, vomiting - Genitourinary Female Genitourinary: Denies abnormal vaginal bleeding, Denies hematuria - Musculoskeletal Musculoskeletal: Denies joint pain, Denies joint swelling - Integumentary/Breasts Skin/Breast: Denies rash - Neurologic Neurologic: Denies seizure-like activity Physical Exam - General General appearance: alert, in no apparent distress, obese - Head Head exam: normocephalic - Eye Eye exam: Present: PERRL, EOMI. Absent: scleral icterus - ENT ENT exam: Present: mucous membranes dry - Neck Neck exam: Present: trachea midline - Respiratory Respiratory exam: Absent: respiratory distress - Cardiovascular Cardiovascular exam: Present: regular rate, systolic murmur - Abdominal Exam Abdominal exam: Present: soft, tenderness. Absent: guarding, rebound, rigidity Abdominal tenderness: Present: epigastrium, moderate - Extremities Exam Extremities exam: Present: full ROM - Neurological Exam Neurological exam: Present: alert, CN II-XII intact - Psychiatric Psychiatric exam: Present: normal affect - Skin Skin exam: Absent: rash
[2019-07-07 03:42] LABS: Basophils # 0.1 K/mm3 (0-0.2); Basophils % 0.5 % (0.1-2.0); Eosinophils # 0.2 K/mm3 (0.0-0.4); Eosinophils % 2.1 % (0.1-12.0); Lymphocytes # 3.8 K/mm3 (0.7-4.5); Lymphocytes % 33.9 % (10-50); Mean Corpuscular HGB Conc 33.4 g/dL (31.8-35.4); Mean Corpuscular Volume 91.5 fl (81-99); Mean Platelet Volume 7.5 fl (7.4-10.4); Monocytes # 0.7 K/mm3 (0.1-1.0); Neutrophils # 6.5 K/mm3 (1.8-7.8); Neutrophils % 57.5 % (37.0-80.0); Platelet Count 218 K/mm3 (142-424); Red Blood Count 4.37 M/mm3 (4.20-5.40); White Blood Count 11.2 K/mm3 (4.8-10.8)
[2019-07-07 03:44] LABS: Hemoglobin 13.4 g/dL (12.2-16.2)
[2019-07-07 03:57] LABS: Blood Urea Nitrogen 17 mg/dL (7-18); Carbon Dioxide 27 mmol/L (21.0-32.0); Chloride 107 mmol/L (98-107); Glucose 103 mg/dL (74-106); Sodium 143 mmol/L (136-145)
[2019-07-07 03:58] LABS: Calcium 7.8 mg/dL (8.5-10.1)
--- NOTE | 2019-07-07 09:37 | H&P/Discharge Summary ---
General - General Admission date:: 07/06/19 Discharge date: 07/07/19 *Admission Date: 07/06/19 *Chief complaint: abdominal pain and vomiting *History of present illness: 54 year old female with a history of numerous abdominal surgeries presented to [facility] ER last night with a 6 hour history of epigastric abd pain associated with nausea and vomiting. She had about 4 episodes of vomiting which consisted of ingested food. She states she ate grits for breakfast yesterday morning and chili for lunch. She denies fever and chills and diarrhea. She had no sick contacts but did visit the hospital last week to see a family member that had surgery. No recent travel. [facility] History Medical History: Reports:: Gastroesophageal Reflux Disease(GERD), Hypertension, Kidney Stones Denies:: Atherosclerotic Heart Disease, Cancer (PT DENIES ANY CANCER), Diabetes Mellitus Type 1, Diabetes Mellitus Type 2, MRSA *Have you ever received a pneumonia vaccine?: Yes *Have you received a flu vaccine this season?: No Other Medical History: Reports: Other (Multiple Sclerosis, colon diverticulosis) Laterality Cases: Bilateral: Carpal Tunnel Release, Tonsillectomy Other Surgeries: Yes: Cardiac Catheterization, Cholecystectomy, Colonoscopy, Colon Resection (9" COLON REMOVED), Colostomy (TEMPORARY [id number]), Dilation and Curettage, Hernia Repair, Hysterectomy-Total, Tubal Ligation, Other Amputation: No - *Social History Educational Level: Completed GED/General Educational Development Smoking Status: Current every day smoker Tobacco Type: cigarettes # Packs/Day (cigarettes): 1 Alcohol Intake: current Alcohol Intake Frequency:: other Substance Use Type: denies use *Occupational Status:: disabled Housing: house Household Members: spouse *Travel in the last 8 weeks: None Family Hx:: Asthma, Coronary Artery Disease, Diabetes, Heart Attack Review of Systems - Constitutional Denies body ache(s) - Eyes Denies blurry vision - ENT Denies change in voice - *Cardiovascular Denies chest pain - *Respiratory Denies cough - *Gastrointestinal Denies coffee ground vomit, Denies bright, red blood in stools - *Genitourinary Denies difficulty urinating - *Musculoskeletal Denies joint pain - Integumentary/Breasts Denies rash - *Neurologic Denies dizziness, Denies seizure-like activity - Psychiatric Denies memory loss - Hematologic/Lymphatic Denies easy bruising Exam Vital signs and Labs for Last 24 Hours: Temp Pulse Resp BP Pulse Ox 98.4 F 59 L 17 104/58 L 97 07/07/19 07:29 07/07/19 07:29 07/07/19 07:29 07/07/19 07:29 07/07/19 07:29 Laboratory Results - last 24 hr 07/06/19 20:20: Troponin I < 0.02 07/06/19 20:29: WBC 14.4 H, RBC 5.27, Hgb 16.5 H, Hct 48.4 H, MCV 91.7, MCH 31.2, MCHC 34.0, RDW 13.1, Plt Count 273, MPV 7.6, Neut % (Auto) 73.0, Lymph % (Auto) 19.5, [place] % (Auto) 5.3, Eos % (Auto) 1.7, Baso % (Auto) 0.5, Neut # (Auto) 10.5 H, Lymph # (Auto) 2.8, [place] # (Auto) 0.8, Eos # (Auto) 0.2, Baso # (Auto) 0.1, ESR 17 07/06/19 20:29: Sodium 140, Potassium 4.1, Chloride 102, Carbon Dioxide 29, Anion Gap 13.1, BUN 14, Creatinine 0.69, Estimated Creat Clear 137, Estimated GFR 88, Est GFR ( Amer) 106, Glucose 142 H, Calcium 8.8, Total Bilirubin 0.4, AST 13 L, ALT 18, Alkaline Phosphatase 77, C-Reactive Protein 0.5, Total Protein 8.1, Albumin 3.7, Globulin 4.4 H, Albumin/Globulin Ratio 0.8 L, Amylase 34, Lipase 67 L 07/07/19 00:30: Troponin I < 0.02 07/07/19 03:35: WBC 11.2 H, RBC 4.37, Hgb 13.4 D, Hct 40.0, MCV 91.5, MCH 30.6, MCHC 33.4, RDW 13.0, Plt Count 218, MPV 7.5, Neut % (Auto) 57.5, Lymph % (Auto) 33.9, [place] % (Auto) 6.0, Eos % (Auto) 2.1, Baso % (Auto) 0.5, Neut # (Auto) 6.5, Lymph # (Auto) 3.8, [place] # (Auto) 0.7, Eos # (Auto) 0.2, Baso # (Auto) 0.1 07/07/19 03:35: Sodium 143, Potassium 4.0, Chloride 107, Carbon Dioxide 27, Anion Gap 13.0, BUN 17, Creatinine 0.65, Estimated Creat Clear 146, Estimated GFR 94, Est GFR ( Amer) 114, Glucose 103 D, Calcium 7.8 L D, Troponin I < 0.02 Vital Signs - 24 hr 07/06/19 20:23 07/06/19 22:16 07/06/19 22:44 Temperature 98.1 F 97.8 F 97.8 F Pulse Rate 64 Pulse Rate [Right Brachial] 73 64 Pulse Rate [Right Radial] Respiratory Rate 18 18 18 Blood Pressure 107/56 L Blood Pressure [Left Arm] Blood Pressure [Right Arm] 103/62 L 107/56 L 02 Sat by Pulse Oximetry 98 96 07/06/19 22:45 07/06/19 22:56 07/07/19 00:00 Temperature 97.8 F Pulse Rate 60 60 Pulse Rate [Right Brachial] 61 Pulse Rate [Right Radial] Respiratory Rate 16 Blood Pressure Blood Pressure [Left Arm] 115/50 L Blood Pressure [Right Arm] 02 Sat by Pulse Oximetry 96 07/07/19 04:00 07/07/19 07:29 Temperature 98.3 F 98.4 F Pulse Rate 56 L Pulse Rate [Right Brachial] 65 Pulse Rate [Right Radial] 59 L Respiratory Rate 18 17 Blood Pressure Blood Pressure [Left Arm] 92/52 L 104/58 L Blood Pressure [Right Arm] 02 Sat by Pulse Oximetry 95 97 I & O for Last 24 hours: Intake & Output 07/04/19 07/05/19 07/06/19 07/07/19 23:59 23:59 23:59 23:59 Intake Total 1429 / 1429 Output Total 125 / 125 Balance 1304 / 1304 Weight 210 lb 9 oz 212 lb 6 oz Radiology Reports for the Last 24 Hours: CT abd pelvis report reviewed, shows enteritis vs early partial small bowel obstruction - Constitutional no acute distress - *Routine HEENT Exam Head: Present: normocephalic Eye: Present: EOMI, PERRL ENT: Present: mucous membranes moist - *Routine Neck Exam Present: supple. Absent: lymphadenopathy - *Routine Respiratory Exam Present: CTA bilaterally - *Routine Cardiovascular Exam Present: RRR - *Routine Abdominal Exam Present: soft, normoactive bowel sounds, tenderness (only minimal epigastric tenderness to deep palpation) - *Routine Extremities Exam Absent: cyanosis, clubbing, edema - *Routine Skin Exam Present: warm. Absent: rash - *Routine Neurological Exam Present: alert, oriented X3 Hospital Course Hospital Course: Patient was admitted to [facility] due to abd pain/N/V and CT scan findings. She was made NPO and treated with antiemetics and IV fluids. She had no more vomiting and had 2 normal bowel movements overnight. She is hungry this morning and is anxious to go home. Plan for discharge home today with a bland diet. Plan to continue Zofran and treat with Bactrim BID x 5 days with office f/u in 4 or 5 days. Results Labs on day of discharge: Labs from last 24 hours 07/07/19 07/07/19 07/07/19 03:35 03:35 00:30 WBC 11.2 H RBC 4.37 Hgb 13.4 D Hct 40.0 MCV 91.5 MCH 30.6 MCHC 33.4 RDW 13.0 Plt Count 218 MPV 7.5 Neut % (Auto) 57.5 Lymph % (Auto) 33.9 [place] % (Auto) 6.0 Eos % (Auto) 2.1 Baso % (Auto) 0.5 Neut # (Auto) 6.5 Lymph # (Auto) 3.8 [place] # (Auto) 0.7 Eos # (Auto) 0.2 Baso # (Auto) 0.1 ESR Sodium 143 Potassium 4.0 Chloride 107 Carbon Dioxide 27 Anion Gap 13.0 BUN 17 Creatinine 0.65 Estimated Creat Clear 146 Estimated GFR 94 Est GFR ( Amer) 114 Glucose 103 D Calcium 7.8 L D Total Bilirubin AST ALT Alkaline Phosphatase Troponin I < 0.02 < 0.02 C-Reactive Protein Total Protein Albumin Globulin Albumin/Globulin Ratio Amylase Lipase 07/06/19 07/06/19 07/06/19 20:29 20:29 20:20 WBC 14.4 H RBC 5.27 Hgb 16.5 H Hct 48.4 H MCV 91.7 MCH 31.2 MCHC 34.0 RDW 13.1 Plt Count 273 MPV 7.6 Neut % (Auto) 73.0 Lymph % (Auto) 19.5 [place] % (Auto) 5.3 Eos % (Auto) 1.7 Baso % (Auto) 0.5 Neut # (Auto) 10.5 H Lymph # (Auto) 2.8 [place] # (Auto) 0.8 Eos # (Auto) 0.2 Baso # (Auto) 0.1 ESR 17 Sodium 140 Potassium 4.1 Chloride 102 Carbon Dioxide 29 Anion Gap 13.1 BUN 14 Creatinine 0.69 Estimated Creat Clear 137 Estimated GFR 88 Est GFR ( Amer) 106 Glucose 142 H Calcium 8.8 Total Bilirubin 0.4 AST 13 L ALT 18 Alkaline Phosphatase 77 Troponin I < 0.02 C-Reactive Protein 0.5 Total Protein 8.1 Albumin 3.7 Globulin 4.4 H Albumin/Globulin Ratio 0.8 L Amylase 34 Lipase 67 L DS: Diagnosis - Discharge Diagnosis (1) Epigastric abdominal pain Status: Acute (2) Enteritis Status: Acute (3) Hypertension Status: Chronic Discharge Plan - Patient Discharge Instructions ACTIVITY: Continue current activity DIET: advance to your usual diet Patient Instructions: DI for Enteritis - Follow up Plan Follow up with: Martinez Norton MD [Primary Care Provider] - 07/12/19 Disposition: Home, Self-Mcc Medications: Home Medications Medication Instructions Recorded Confirmed Type Bisoprolol/Hydrochlorothiazide 1 each PO DAILY 07/30/18 07/06/19 History [Bisoprolol-Hctz 2.5-6.25 mg Tb] Aspirin [Aspirin 81mg chewable 81 mg PO DAILY 07/31/18 07/06/19 History tab] Albuterol Sulfate [Proair 90 mcg IH DIRECTED 07/06/19 07/06/19 History Digihaler] Cholecalciferol (Vitamin D3) 50 mcg PO DAILY 07/06/19 07/06/19 History [Vitamin D3] Ondansetron HCl [Zofran 4mg Tab*] 4 mg PO TIDP PRN #12 tab 07/07/19 Rx Sulfamethoxazole/Trimethoprim 1 each PO BID #10 tab 07/07/19 Rx [Bactrim DS tablet] Prescriptions/Medication Reconciliation: New Sulfamethoxazole/Trimethoprim [Bactrim DS tablet] 1 each PO BID #10 tab Ondansetron HCl [Zofran 4mg Tab*] 4 mg PO TIDP PRN #12 tab PRN Reason: Nausea And Vomiting Continued Albuterol Sulfate [Proair Digihaler] 90 mcg IH DIRECTED RX: Bisoprolol/Hydrochlorothiazide [Bisoprolol-Hctz 2.5-6.25 mg Tb] 1 each PO DAILY RX: Aspirin [Aspirin 81mg chewable tab] 81 mg PO DAILY Cholecalciferol (Vitamin D3) [Vitamin D3] 50 mcg PO DAILY - Problem Reconciliation Problems Reviewed?: Yes
== END 2019-07-07 10:19 | disposition home or self-care (01) ==
LOC: 2ND 20:15 → ER 20:15 → 2ND 22:47
PROVIDERS: ADMIT Family Medicine; ATTEND Family Medicine
CPT/HCPCS: 36415; 74177; 80048; 80053; 82150; 83690; 84484; 85025; 85651; 86140; 96365; 96375; 99284; G0378; J2405; Q9967

== ENCOUNTER 2019-12-08 12:56 | Emergency (ER) | payer MEDICARE, SELFPAY ==
[2019-12-08 13:20] VITALS: BP 118/52; PULSE 94; RESP 20; TEMP 36.6; O2SAT 94; BMI 40.0
--- NOTE | 2019-12-08 14:21 | HMH.EDEPIS ---
ED Disposition Clinical Impression: Epistaxis Disposition: Xfer Short-Term Hosp Condition on Discharge: Serious Instructions: DI for Nosebleed Referrals: Martinez Norton MD [Primary Care Provider] - 3 days - Critical Care Critical Care Time: Yes Attestation: On 12/08/19, the high probability of a clinically significant, sudden or life threatening deterioration of the following system(s) required my full and direct attention, intervention and personal management. The time I documented below is in addition to time spent performing reported procedures but includes the following listed in this critical care notation. 45 minutes critical care time Vital system(s) involved:: Circulatory Failure, Respiratory Failure My critical care processes included: Assessment & monitoring of V/S, Initial and Re-exams, Data Review/Interpretation, Coordinating Care, Medication Orders and management, Documentation Medical Decision Making - Medical Records Medical records reviewed: Yes: I reviewed the patient's medical records. - [place] Inquiry Pt receiving controlled substance: No Vital Signs: 12/08/19 13:20 12/08/19 14:37 Temperature 97.9 F Temperature Source Oral Pulse Rate [Right Radial] 94 H 91 H Respiratory Rate 20 Blood Pressure [Right Arm] 118/52 L 146/68 H Blood Pressure Mean [Right Arm] 74 94 Blood Pressure Source [Right Arm] Automatic Cuff Automatic Cuff Blood Pressure Position [Right Arm] Sitting Sitting 02 Sat by Pulse Oximetry 94 L 93 L Oxygen Delivery Method Room Air Room Air Orders (Tests/Meds): ED MEDICATIONS Discontinued Medications Generic Name Dose Route Start Last Admin Trade Name Freq PRN Reason Stop Dose Admin Ondansetron HCl 4 mg 12/08/19 14:37 Zofran 4mg/2ml Vial IV 12/08/19 14:38 ONCE ONE Oxymetazoline HCl 2 ml 12/08/19 13:39 Afrin Nasal [place] 15ml NS 12/08/19 13:40 ONCE ONE Medical Decision Narrative: We have attempted multiple rounds of Afrin and pressure with transient relief of symptoms, but still persistent nasal drainage of blood. Patient continues to deny any difficulty breathing but remains nauseous from bleed posteriorly. To nasal packings were attempted with decrease in bleeding, but again persistent posterior nasal drainage. I have discussed this case with Dr. Rowland, ENT at accepts the patient for transfer. Advises flying the patient, patient excepted by [facility]. She is doing much better with the nasal packing and using a suction device to clear her posterior oropharynx. She continues to state she has no difficulty breathing so we have not intubated at this time. Pressure remains controlled. Epistaxis HPI - General Chief complaint: Epistaxis Stated complaint: nose bleed Time Seen by Provider: 12/08/19 13:24 Mode of Arrival: Ambulatory Source of Information: Patient Limitations: No Limitations Description of Symptoms (Recalled from ER Triage Doc. by RN): Pt reports nose bleed that began this morning upon bending over. Pt reports nose bleed has bled on/off all day. Pt states no known trauma or injury. - History of Present Illness HPI Narrative: This is a 54-year-old female with no significant past medical history who presents to the emergency department for evaluation of epistaxis that started this morning. No nasal trauma. She takes baby aspirin daily. She does not typically have nosebleeds. She is not hypertensive on arrival. No exacerbating or alleviating factors. Nauseous but no difficulty breathing. - Related Data Home Medications Medication Instructions Recorded Confirmed Bisoprolol/Hydrochlorothiazide 1 each PO DAILY 07/30/18 07/06/19 [Bisoprolol-Hctz 2.5-6.25 mg Tb] Aspirin [Aspirin 81mg chewable 81 mg PO DAILY 07/31/18 07/06/19 tab] Albuterol Sulfate [Proair 90 mcg IH DIRECTED 07/06/19 07/06/19 Digihaler] Cholecalciferol (Vitamin D3) 50 mcg PO DAILY 07/06/19 07/06/19 [Vitamin D3] Previous
[2019-12-08 14:37] VITALS: BP 146/68; PULSE 91; O2SAT 93
--- NOTE | 2019-12-08 14:37 | PC.NURSE ---
placed call for ENT at
--- NOTE | 2019-12-08 14:38 | PC.NURSE ---
Dr Graves speaking with Dr Rowland at
--- NOTE | 2019-12-08 14:47 | PC.NURSE ---
[facility] accepting transfer
--- NOTE | 2019-12-08 14:55 | PC.NURSE ---
report called to IAN Malcolm at ER at this time.
[2019-12-08 15:02] VITALS: BP 118/58; PULSE 80; RESP 20; O2SAT 100
--- NOTE | 2019-12-08 15:13 | PC.NURSE ---
report given to [facility] staff at this time
[2019-12-08 15:15] VITALS: BP 125/50; PULSE 74; RESP 18; TEMP 36.6; O2SAT 100
== END 2019-12-08 15:15 | disposition short-term general hospital (02) ==
PROVIDERS: Emergency Provider Emergency Medicine; PCP Family Medicine
DX: R04.0 Epistaxis (principal); I10 Essential (primary) hypertension; K21.9 Gastro-esophageal reflux disease without esophagitis; Z87.442 Personal history of urinary calculi; F17.210 Nicotine dependence, cigarettes, uncomplicated; Z90.09 Acquired absence of other part of head and neck; Z90.49 Acquired absence of other specified parts of digestive tract; Z90.79 Acquired absence of other genital organ(s)
CPT/HCPCS: 96374; 99283; 99284; J2405

== ENCOUNTER → 2019-12-31 07:39 | Outpatient (CLI) | payer MEDICARE, SELFPAY ==
--- NOTE | 2019-12-31 07:45 | CT_ITS ---
PROCEDURE: CT SINUS WO CON CLINICAL HISTORY: H/O EPISTAXIS Nose bleeds with packing, drainage, COMPARISON: No exams were available for comparison TECHNIQUE: Axial images obtained with sagittal and coronal reformats. All CT scans at the facility use one or more dose reduction, viz: automated exposure control, ma/kV adjustment per patient size (including targeted exams where dose is matched to indication, i.e. head), or iterative reconstruction technique. FINDINGS: Frontal and ethmoid sinuses have an unremarkable appearance. There is minimal mucosal thickening of the maxillary sinuses. Unremarkable sphenoid sinus. No air-fluid levels. There is moderate rightward nasal septal deviation with narrowing of the right nasal canal. No sinus soft tissue mass evident. There are few scattered small lymph nodes in the neck. The mastoid sinuses have an unremarkable appearance. IMPRESSION: Minimal mucosal thickening of the maxillary sinuses. No evidence of acute sinusitis. No sinus soft tissue mass. Moderate rightward nasal septal deviation. Dictated by: Alex Thurman MD 01/01/2020 09:51 Electronically signed by Alex Thurman MD in [place] 01/01/2020 09:51
== END ==
PROVIDERS: PCP Family Medicine; Visit Provider Family Medicine
DX: Z87.898 Personal history of other specified conditions (principal)
CPT/HCPCS: 70486

== ENCOUNTER → 2020-12-16 12:27 | Outpatient (CLI) | payer MEDICARE, SELFPAY ==
--- NOTE | 2020-12-16 12:31 | CT_ITS ---
PROCEDURE: CT LUNG SCREENING CLINICAL INDICATION: H/O NICOTINE DEPENDENCE COMPARISON: CT LUNGSCREEN CT lung screening from 10/15/2018 TECHNIQUE: The exam was performed on a GE Light Speed [address] scanner using 2.90 mGy CTDI. A low dose helical CT CHEST was performed on a multi-detector scanner. All CT scans at the facility use one or more dose reduction, viz: automated exposure control, ma/kV adjustment per patient size (including targeted exams where dose is matched to indication, i.e. head), or iterative reconstruction technique. The LDCT was performed in a facility that meets the criteria for the screening program. Data regarding this exam was submitted to ACR which is an approved registry. The order for this exam indicates that it came as a result of a lung cancer screening counseling shard decision-making visit that included all the elements required of such a visit including smoking cessation. The radiologist interpreting this exam meets the CMS criteria for the LDCT lung cancer screening program. The exam is reported using the Lung-RADS classification scale and reported to the ACR registry. NOTE: This study was performed for the specific purposes of lung cancer screening and is not an alternative to diagnostic chest CT. RADIATION DOSE: CTDI vol(CT dose Index-volume) = 2.90mG FINDINGS: Scattered areas of peripheral honeycombing in the lung apices mildly worsened from prior study consistent with changes of mild pulmonary fibrosis. Scattered emphysematous changes are present consistent with COPD with some bibasilar areas of scarring versus atelectasis. No pleural effusion or pneumothorax. Scattered bilateral calcified granulomata. No definitive discrete pulmonary nodules. The heart is not enlarged. No pericardial effusion or thickening. There is mild calcification of the thoracic aorta without aneurysm. Calcified mediastinal and bilateral hilar lymph nodes again noted. Airways are patent. Images of the upper abdomen show a unchanged 2 centimeter low-attenuation nodule on the left adrenal gland likely adrenal adenoma. No other abnormality. Moderate diffuse degenerative changes of the thoracic spine are present. No acute bony abnormality. IMPRESSION: Lung-RADS Category 2 Benign Appearance or Behavior Follow-up: Repeat chest CT in 1 year Scattered emphysematous changes with areas of peripheral honeycombing in the lung apices mildly worsened from prior study. No definitive discrete pulmonary nodules. Unchanged 2 centimeter low-attenuation nodule left adrenal gland likely adrenal adenoma. Dictated by: Ck Gates 12/28/2020 13:37 Ck Gates in [place] 12/28/2020 13:37
--- NOTE | 2020-12-16 12:32 | MM_ITS ---
PROCEDURE INFORMATION: Exam: MG Screening 3D Mammography Exam date and time: 12/16/2020 12:32 PM Age: 55 years old Clinical indication: Encounter for screening mammogram for malignant neoplasm of breast TECHNIQUE: Imaging protocol: Screening tomosynthesis and 2D mammography including computer-aided detection (CAD) when performed. COMPARISON: MG SCBI MM Dig screening mamm BI w/CAD 10/15/2018 9:15 AM FINDINGS: MAMMOGRAPHY: Breast composition: The breasts are almost entirely fatty. Mass: None. Architectural distortion: None. Calcifications: No suspicious calcifications. Asymmetric density: None. Skin thickening: None. Axillary adenopathy: None. IMPRESSION: No mammographic evidence of malignancy. Annual screening is recommended unless otherwise clinically indicated. ASSESSMENT: BI-RADS Category 1: Negative
== END ==
PROVIDERS: PCP Family Medicine; Visit Provider Family Medicine
DX: Z12.31 Encounter for screening mammogram for malignant neoplasm of breast (principal); Z87.891 Personal history of nicotine dependence; Z12.2 Encounter for screening for malignant neoplasm of respiratory organs
CPT/HCPCS: 71271; 77063; 77067

== ENCOUNTER → 2021-12-16 09:15 | Outpatient (CLI) | payer MEDICARE, SELFPAY ==
--- NOTE | 2021-12-16 09:21 | MM_ITS ---
PROCEDURE INFORMATION: Exam: MG Bilateral Screening 3D Mammography Exam date and time: 12/16/2021 9:44 AM Age: 56 years old Clinical indication: Screening examination. Her sister had breast cancer. TECHNIQUE: Imaging protocol: Bilateral Screening tomosynthesis and 2D mammography including computer-aided detection (CAD) when performed. COMPARISON: 1. MG MM DIG SCREENING MAMM BI W/CAD 12/16/2020 1:20 PM 2. MG SCBI MM Dig screening mamm BI w/CAD 10/15/2018 9:15 AM 3. MG DMSB DIGITAL MAMM-SCREEN BILATERAL 12/11/2012 11:11 AM 4. MG DMSB DIGITAL MAMM-SCREEN BILATERAL 05/19/2011 10:07 AM FINDINGS: MAMMOGRAPHY: Breast composition: The breasts are almost entirely fatty. Mass: None. Architectural distortion: None. Calcifications: No suspicious calcifications. Asymmetric density: None. Skin thickening: None. Axillary adenopathy: None. IMPRESSION: No mammographic evidence of malignancy. Annual screening is recommended unless otherwise clinically indicated. ASSESSMENT: BI-RADS Category 1: Negative
--- NOTE | 2021-12-16 09:21 | XR_ITS ---
FINAL REPORT TECHNIQUE: Bone mineral density was calculated of the lumbar spine and hip. CLINICAL HISTORY: post menopausal, osteoporosis screening FINDINGS: DEXA BONE DENSITY AXIAL SKELETON Using L1-4, the bone mineral density of the spine is 0.920 g/cm2, corresponding to T-score of -1.2. Using the left hip, the bone mineral density of the femoral neck is 0.639 g/cm2, corresponding to a T-score of -1.9. NOTE: T-score: Standard deviation compared with peak bone mass of young adult mean. *Following the recommendations of the International Society of Bone densitometry, classification of hip BMD is based on the lower of two T-scores; total hip or femoral neck. IMPRESSION: Diminished bone mineral density of the lumbar spine and left hip consistent with osteopenia. FRAX 10 year fracture risk is 15 % for major osteoporotic fracture based on the left hip measurements. Reviewed, Interpreted and Dictated by Anish Spence III, MD Transcribed by Sherry Mendoza Authenticated and [facility]
--- NOTE | 2021-12-16 09:23 | CT_ITS ---
FINAL REPORT CLINICAL HISTORY: SCREENING FOR LUNG CANCER. PERSONAL DEPENDENCE OF NICOTINE, LESS THAN 1 PPD X 40 YEARS COMPARISON: December 16, 2020 and October 15, 2018 FINDINGS: Low-Dose Chest CT CTDI vol (mGy): 2.7 DLP (mGy-cm): 95.1 Axial images were obtained from the lung apex to the mid abdomen by computed tomography. Low-dose protocol was utilized. FINDINGS: CHEST: There are several borderline size mediastinal nodes and calcified mediastinal and hilar nodes. There is no axillary adenopathy. There is no hilar adenopathy. The heart is proper size. There is no pericardial or pleural effusion. Limited images of the upper abdomen demonstrate postoperative changes from cholecystectomy. Lung window images demonstrate moderate changes of emphysema. There is mild pulmonary scarring. There are multiple calcified granulomas. There is a stable 4 mm nodule in the lateral left upper lobe on image 165. There is several nodules in the superior right middle lobe the largest measuring 5 mm on image 255. These nodules are stable. There is mild to moderate fibrosis in the lung bases which is stable in predominantly peripheral. IMPRESSION: Stable bilateral pulmonary nodules. Lung RADS category 2. Recommend 12 month follow-up low-dose chest CT. Reviewed, Interpreted and Dictated by Anish Spence III, MD Transcribed by Sherry Mendoza Authenticated and [facility]
== END ==
PROVIDERS: PCP Family Medicine; Visit Provider Family Medicine
DX: Z12.31 Encounter for screening mammogram for malignant neoplasm of breast (principal); Z78.0 Asymptomatic menopausal state; Z87.891 Personal history of nicotine dependence; Z12.2 Encounter for screening for malignant neoplasm of respiratory organs
CPT/HCPCS: 71271; 77063; 77067; 77080

== ENCOUNTER → 2022-05-19 11:44 | Outpatient (CLI) | payer MEDICARE, SELFPAY ==
[2022-05-19 12:45] LABS: Basophils # 0.2 K/mm3 (0-0.2); Basophils % 1.6 % (0.1-2.0); Eosinophils # 0.4 K/mm3 (0.0-0.4); Eosinophils % 3.3 % (0.1-12.0); Hematocrit 48.9 % (37.0-47.0); Hemoglobin 15.9 g/dL (12.2-16.2); Lymphocytes # 3.6 K/mm3 (0.7-4.5); Lymphocytes % 33.3 % (10-50); Mean Corpuscular HGB Conc 32.5 g/dL (31.8-35.4); Mean Corpuscular Hemoglobin 31.4 pg (27.0-31.2); Mean Corpuscular Volume 96.5 fl (81-99); Mean Platelet Volume 7.2 fl (7.4-10.4); Monocytes # 0.7 K/mm3 (0.1-1.0); Monocytes % 6.5 % (1.7-9.3); Neutrophils # 5.9 K/mm3 (1.8-7.8); Neutrophils % 55.3 % (37.0-80.0); Platelet Count 257 K/mm3 (142-424); Red Blood Count 5.06 M/mm3 (4.20-5.40); White Blood Count 10.7 K/mm3 (4.8-10.8)
== END ==
PROVIDERS: PCP Family Medicine; Visit Provider Family Medicine
DX: Z20.822 Contact with and (suspected) exposure to COVID-19 (principal)
CPT/HCPCS: 36415; 85025; 87275; 87276; C9803; U0003; U0005

== ENCOUNTER → 2022-07-15 09:00 | Outpatient (CLI) | payer MEDICARE, SELFPAY ==
--- NOTE | 2022-07-15 09:01 | CT_ITS ---
FINAL REPORT TECHNIQUE: After the administration of intravenous contrast, axial images were obtained through the abdomen and pelvis by computed tomography. The study was performed with techniques to keep radiation dose as low as reasonably achievable, (ALARA). Individual dose reduction techniques using automated exposure control or adjustment of mA and/or kV according to the patient's size were employed. CLINICAL HISTORY: possible hernia COMPARISON: 07/06/2019 FINDINGS: Abdomen: There is mild scarring at the lung bases. There is fatty infiltration of the liver. The patient is status post cholecystectomy. The spleen is unremarkable. There are bilateral adrenal nodules measuring 19 mm on the left and 12 mm on the right which are stable, favor adenomas. Moderate vascular calcification is identified. The pancreas is unremarkable. The kidneys enhance appropriately. The aorta is normal in caliber. There is no free fluid or adenopathy. Pelvis: The appendix is unremarkable. The patient is status post hysterectomy. There are postoperative changes in the sigmoid colon. 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 The orifice measures 12 mm. The hernia sac measures 54 mm. This contains only fat, somewhat larger. The urinary bladder is unremarkable. There is no free fluid or adenopathy. IMPRESSION: Again identified is a spigelian hernia, somewhat larger than previous. Reviewed, Interpreted and Dictated by Anish Spence III, MD Transcribed by Christine Robert Authenticated and [facility]
== END ==
PROVIDERS: PCP Family Medicine; Visit Provider Surgery
DX: K43.9 Ventral hernia without obstruction or gangrene (principal); R10.9 Unspecified abdominal pain
CPT/HCPCS: 74177; Q9967

== ENCOUNTER 2022-10-05 09:48 | Emergency (ER) | payer MEDICARE, SELFPAY ==
[2022-10-05 10:15] VITALS: BP 125/72; PULSE 67; RESP 22; TEMP 37.1; O2SAT 96; BMI 40.2
--- NOTE | 2022-10-05 10:24 | EXP.UTC ---
Discharge Plan Disposition Patient Disposition: Home, Self-Care Condition: Good Prescriptions Prescriptions: New erythromycin 5 mg/gram (0.5 %) ointment 0.5 inch ophthalmic (eye) QID 7 Days Qty: 3.5 0RF Rx Instructions: apply small ribbon to conjunctiva left eye No Action albuterol sulfate 90 MCG aero powdr breath act w/sensor 90 mcg inhalation DIRECTED cholecalciferol (vitamin D3) 50 MCG capsule 50 mcg PO DAILY bisoprolol-hydrochlorothiazide 1 EACH tablet 1 each PO DAILY Label Comments: take 1 tablet by mouth once daily Referrals Follow up/Referrals: Martinez Norton MD [Primary Care Provider] - See instructions Activity Restrictions/Add. Instructions Additional Instructions/Restrictions: Use eye ointment as prescribed Warm compresses on eye may help with discomfort Follow up with eye doctor if no improvement or any worsening of symptoms Straight to ER if any life threatening symptoms Clinical Impressions Clinical Impression: Conjunctivitis Instructions Patient Instructions: DI for Conjunctivitis, Erythromycin Ophthalmic Discharge ED Provider: Soraya Miguel [facility] General Stated complaint: possible pink eye Time Seen by Provider: 10/05/22 10:24 History of Present Illness Provider Complaint: Patient states that she has been having redness and drainage in her left eye for a couple of days and has been using OTC pink eye drops States that this morning her left eye was about matted shut and thinks she may have a stye or something in the corner because she took a qtip and mashed it and a bunch of drainage came out of it and she has a small area on her lower eye lid Related Data Home Medications Medication Instructions Recorded Confirmed bisoprolol 2.5 1 each PO DAILY mitral valve 07/30/18 07/21/22 mg-hydrochlorothiazide 6.25 mg prolapse tablet albuterol sulfate 90 mcg/actuation 90 mcg inhalation DIRECTED COPD 07/06/19 07/21/22 breath activated powder inhaler,sensor cholecalciferol (vitamin D3) 50 50 mcg PO DAILY Supplement 07/06/19 07/21/22 mcg (2,000 unit) capsule Previous Rx's Medication Instructions Recorded erythromycin 5 mg/gram (0.5 %) eye 0.5 inch ophthalmic (eye) QID 7 10/05/22 ointment days #3.5 grams Allergies Allergy/AdvReac Type Severity Reaction Status Date / Time hydrocodone [From LORTAB] AdvReac Mild NA-NAUSEA/V Verified 07/21/22 10:38 OMITING PFSH PFSH Disclaimer: The information contained in this section may have been updated after the patient was seen, as this information can be updated by other users. Surgical History History of colon resection History of colonoscopy History of hysterectomy Social History Smoking Status: Current every day smoker tobacco type: cigarettes packs per day: 1 second hand exposure: Yes alcohol intake: never substance use type: denies use current occupational status: other Travel in the last 8 weeks: None household members: spouse housing: house caffeine: Yes ROS Obtained: Yes All systems reviewed & no additional complaints except as documented and Yes Systems reviewed as appropriate & no additional complaints except as documented Constitutional Constitutional: Reports system reviewed and no additional complaints, except as documented and Reports as per HPI Eyes Eyes: Reports system reviewed and no additional complaints, except as documented, Reports as per HPI, Reports eye discharge and Reports irritation ENT Ears, Nose, Mouth, and Throat: Reports system reviewed and no additional complaints, except as documented and Reports as per HPI Cardiovascular Cardiovascular: Reports system reviewed and no additional complaints, except as documented and Reports as per HPI Respiratory Respiratory: Reports system reviewed and no additional compl
[2022-10-05 10:38] VITALS: BP 125/72; PULSE 67; RESP 22; TEMP 37.1; O2SAT 96
== END 2022-10-05 10:47 | disposition home or self-care (01) ==
PROVIDERS: Emergency Provider Nurse Practitioner; PCP Family Medicine
DX: H10.32 Unspecified acute conjunctivitis, left eye (principal); F17.210 Nicotine dependence, cigarettes, uncomplicated; Z90.49 Acquired absence of other specified parts of digestive tract
CPT/HCPCS: 99212; 99214; G0463

== ENCOUNTER → 2022-10-15 08:01 | Outpatient (CLI) | payer MEDICARE, SELFPAY | PROVIDERS: PCP Family Medicine; Visit Provider Internal Medicine | DX: E27.8 Other specified disorders of adrenal gland (principal) | CPT/HCPCS: 82533 ==

== ENCOUNTER → 2022-12-19 07:47 | Outpatient (CLI) | payer MEDICARE, SELFPAY ==
--- NOTE | 2022-12-19 07:50 | MM_ITS ---
PROCEDURE INFORMATION: Exam: MG Bilateral Screening 3D Mammography Exam date and time: 12/19/2022 7:56 AM Age: 57 years old Clinical indication: Screening mammogram TECHNIQUE: Imaging protocol: Bilateral Screening tomosynthesis and 2D mammography including computer-aided detection (CAD) when performed. COMPARISON: 1. MG MM DIG SCREENING MAMM BI W/CAD 12/16/2021 9:44 AM 2. MG MM DIG SCREENING MAMM BI W/CAD 12/16/2020 1:20 PM 3. MG SCBI MM Dig screening mamm BI w/CAD 10/15/2018 9:15 AM 4. MG DMSB DIGITAL MAMM-SCREEN BILATERAL 12/11/2012 11:11 AM FINDINGS: MAMMOGRAPHY: Breast composition: There are scattered areas of fibroglandular density. Mass: None. Architectural distortion: No new or suspicious architectural distortion. Calcifications: No new or suspicious calcifications are present Asymmetric density: No new or suspicious asymmetric density is present Skin thickening: None. Axillary adenopathy: None. IMPRESSION: No mammographic evidence of malignancy. Recommend annual screening mammography unless otherwise clinically indicated. ASSESSMENT: BI-RADS category 1: Negative
--- NOTE | 2022-12-19 07:51 | CT_ITS ---
FINAL REPORT TECHNIQUE: Thin section axial images were obtained through the lungs using a low-dose technique per lung cancer screening protocol. Reconstruction images were obtained using the axial data. Exam was performed using dose reduction technique. CLINICAL HISTORY: H/O TOBACCO USE CURRENT SMOKER 1PPD X40 YEARS COMPARISON: 12/16/2021 FINDINGS: CTDLvol: 2.90 DLP: 100.29 Current smoker 40 pack year history Lungs: No acute pulmonary abnormality. There is a medial left apical nodule on image number 13 measuring 4 mm which is unchanged. 4 mm nodule in the left upper lobe on image 23 and lingular nodule measuring 4 mm on image 40 are also stable. There is evidence of prior granulomatous disease with emphysema. Subpleural ground-glass opacities with interlobular septal thickening at the lung bases are unchanged. Lymph nodes: No thoracic lymphadenopathy. Mediastinum: Heart size is normal. Pleura/pericardium: No pleural or pericardial effusion. Other: No acute abnormality in the upper abdomen. IMPRESSION: Stable pulmonary nodules, Modifier S: Stable findings of interstitial disease. Lung RADS: 2 Recommendation: 1 year follow-up. Reviewed, Interpreted and Dictated by Anabel Barillas MD Transcribed by Chaparrita Valerio Authenticated and [facility]
== END ==
PROVIDERS: PCP Family Medicine; Visit Provider Family Medicine
DX: Z12.31 Encounter for screening mammogram for malignant neoplasm of breast (principal); Z87.891 Personal history of nicotine dependence; Z12.2 Encounter for screening for malignant neoplasm of respiratory organs
CPT/HCPCS: 71271; 77063; 77067

== ENCOUNTER 2023-10-12 10:06 | Emergency (ER) | payer MEDICARE, SELFPAY ==
[2023-10-12 10:07] VITALS: BP 153/71; PULSE 64; RESP 18; TEMP 36.7; O2SAT 97; BMI 41.5
--- NOTE | 2023-10-12 10:26 | CT_ITS ---
FINAL REPORT TECHNIQUE: Axial images were obtained through the chest without contrast. Sagittal and coronal reformatted images were obtained and reviewed. This study was performed with techniques to keep radiation doses as low as reasonably achievable (ALARA). Individualized dose reduction techniques using automated exposure control or adjustment of mA and/or kV according to the patient's size were employed. CLINICAL HISTORY: fall 1 wk ago, L chest pain FINDINGS: There are densely calcified right paratracheal and right hilar lymph nodes . There are calcified subcarinal lymph nodes. The heart size is normal. There is no pericardial or pleural effusion. Limited images of the upper abdomen are unremarkable. There are moderately advanced changes of centrilobular emphysema. There is a nodule in the right upper lobe measuring 6 mm well seen on image 18 of series 3. Multiple calcified granulomas are identified. There is scar fibrosis at the bases. No rib fracture is identified. IMPRESSION: Right upper lobe nodule. Recommend follow-up CT in 6-12 months as per Fleischner criteria. Moderate centrilobular emphysema. No acute osseous abnormality. Reviewed, Interpreted and Dictated by Del Chan MD Transcribed by Christine Robert Authenticated and . [facility]
--- NOTE | 2023-10-12 10:30 | CT_ITS ---
FINAL REPORT TECHNIQUE: Axial images were obtained of the cervical spine by computed tomography. Coronal and sagittal reconstruction process performed. This study was performed with techniques to keep radiation doses as low as reasonably achievable (ALARA). Individualized dose reduction techniques using automated exposure control or adjustment of mA and/or kV according to the patient''s size were employed. CLINICAL HISTORY: upper chest/back pain, fall onto L 1 wk ago FINDINGS: Cervical vertebrae show normal height. Disc spaces are well-preserved. There is no malalignment. The facets are properly aligned. IMPRESSION: No fracture. Reviewed, Interpreted and Dictated by Del Chan MD Transcribed by Christine Robert Authenticated and [facility]
--- NOTE | 2023-10-12 10:30 | CT_ITS ---
FINAL REPORT TECHNIQUE: Axial images were obtained of the thoracic spine by computed tomography. Coronal and sagittal reconstruction process performed. This study was performed with techniques to keep radiation doses as low as reasonably achievable (ALARA). Individualized dose reduction techniques using automated exposure control or adjustment of mA and/or kV according to the patient's size were employed. CLINICAL HISTORY: upper chest/back pain, fall onto L 1 wk ago FINDINGS: Thoracic vertebrae show normal height. Disc spaces are well-preserved. There is mild anterior osteophyte formation in the mid and lower thoracic spine. There is no malalignment. The facets are properly aligned. IMPRESSION: No fracture. Reviewed, Interpreted and Dictated by Del Chan MD Transcribed by Christine Robert Authenticated and [facility]
--- NOTE | 2023-10-12 10:30 | [facility].EDGENADL ---
Discharge Plan Disposition Patient Disposition: Home, Self-Care Condition: Good Prescriptions Prescriptions: New naproxen 500 mg tablet 500 mg PO Q12H PRN (Reason: pain) Qty: 20 0RF methocarbamol 750 mg tablet 750 mg PO Q8H PRN (Reason: pain) Qty: 20 0RF lidocaine [Lidoderm] 5 % adhesive patch,medicated 1 patch topical DAILY Qty: 15 0RF Rx Instructions: leave on most painful area for up to 12 hrs No Action albuterol sulfate 90 MCG aero powdr breath act w/sensor 90 mcg inhalation DIRECTED cholecalciferol (vitamin D3) 50 MCG capsule 50 mcg PO DAILY bisoprolol-hydrochlorothiazide 1 EACH tablet 1 each PO DAILY Patient Comments: take 1 tablet by mouth once daily erythromycin 5 mg/gram (0.5 %) ointment 0.5 inch ophthalmic (eye) QID 7 Days Qty: 3.5 0RF Rx Instructions: apply small ribbon to conjunctiva left eye Referrals Follow up/Referrals: Martinez Norton MD [Primary Care Provider] - See instructions Activity Restrictions/Add. Instructions Additional Instructions/Restrictions: You were evaluated in the emergency department today. At this time, your imaging does not demonstrate any acute fracture or broken bones. We feel that you likely have contusion or bruising to your left chest wall that is causing your pain. We are prescribing you medications to take at home as needed for pain. You may also take Tylenol in addition to these medications. Please follow-up closely with your primary care provider for reassessment. You were found to have an incidental right pulmonary nodule, for which we recommend routine outpatient follow-up with your primary care provider. Return to the emergency department for new or worsening symptoms. Clinical Impressions Clinical Impression: Contusion of left chest wall, Nodule of right lung Instructions Patient Instructions: DI for Atypical Chest Pain, DI for Rib Contusion Discharge ED Provider: Roselia Lambert General Adult HPI General Chief complaint: Fall Stated complaint: AO3/21, pain in upper Lt side Time Seen by Provider: 10/12/23 10:10 Mode of Arrival: Ambulatory Source of Information: Patient Limitations: No Limitations Description of Symptoms (Recalled from ER Triage Doc. by RN): patient states she fell and is having left side pain around breast and shoulder. No bruising noted to that area. Patient has bruise on left side of foreheand and abrasion to right knee. Patient denies LOC or use of blood thinners. Patient states pain increses with coughing. Rates pain 8/10. History of Present Illness HPI narrative: This patient is a 58-year-old female with a history of MS, hypertension, and hyperlipidemia presenting with concern for left-sided chest wall pain that radiates around her breast into her left shoulder/back. She states that she had a mechanical ground-level fall 1 week ago when stepping off of a curb and missing the step. She states that she scraped her right knee and fell onto her left side. She states she had been fine since the fall with the exception of left-sided chest wall pain. She notes it is worse with breathing, movement, and palpation. She saw her primary care provider for this was told that she likely had a muscle injury. She states that overnight last night, her pain got significantly worse and now she is having 8 out of 10 pain with any sort of movement or deep breath. It is also worse with coughing. Given this, she decided to come in. She took Advil this morning without good improvement. Related Data Home Medications Medication Instructions Recorded Confirmed bisoprolol 2.5 1 each PO DAILY mitral valve 07/30/18 07/21/22 mg-hydrochlorothiazide 6.25 mg prolapse tablet albuterol sulfate 90 mcg/actuation 90 mcg inhalation DIRECTED COPD 07/06/19 07/21/22 breath activated powder inhaler,sensor cholecalciferol (vitamin D3) 50 50 mcg PO DAILY Supplement 07/06/19 07/21/22 mcg (2,000 unit) capsule Previous Rx's Medication Instructions Recorded erythromycin 5 mg/gram (0.5 %) eye 0.5 inch ophthalmic (eye) QID 7 10/05/22 ointment days #3.5 grams lidocaine 5 % topical patch 1 patch topical DAILY #15 ea 10/12/23 (Lidoderm) methocarbamol 750 mg tablet 750 mg PO Q8H PRN pain #20 tabs 10/12/23 naproxen 500 mg tablet 500 mg PO Q12H PRN pain #20 tabs 10/12/23 Allergies Allergy/AdvReac Type Severity Reaction Status Date / Time hydrocodone [From LORTAB] AdvReac Mild NA-NAUSEA/V Verified 07/21/22 10:38 OMITING PFSH PFS Disclaimer: The information contained in this section may have been updated after the patient was seen, as this information can be updated by other users. Surgical History History of hysterectomy History of colon resection History of colonoscopy Social History Smoking Status: Current every day smoker tobacco type: cigarettes packs per day: 1 second hand exposure: Yes alcohol intake: never substance use type: denies use current occupational status: other Travel in the last 8 weeks: None household members: spouse housing: house caffeine: Yes ROS Obtained: Yes All systems reviewed & no additional complaints except as documented Physical Exam General General appearance: alert, in no apparent distress and obese Head Head exam: atraumatic and normocephalic Eye Eye exam: Present normal appearance, PERRL and EOMI ENT ENT exam: Present normal exam, normal oropharynx, mucous membranes moist and normal external ear exam Neck Neck exam: Present normal inspection, full ROM and trachea midline; Absent tenderness Chest Chest inspection: Present symmetric chest wall rise and tenderness (Tenderness palpation of the left chest wall extending from just below the left clavicle around the lower aspect of her left breast and into her back.) Respiratory Respiratory exam: Present normal lung sounds bilaterally; Absent respiratory distress, wheezes, stridor or accessory muscle use Cardiovascular Cardiovascular exam: Present regular rate and normal rhythm Abdominal Exam Abdominal exam: Present soft; Absent distention, tenderness or guarding Extremities Exam Extremities exam: Present normal inspection, full ROM and normal capillary refill; Absent tenderness or edema Back Exam Back exam: Present normal inspection and full ROM; Absent tenderness Neurological Exam Neurological exam: Present alert, oriented X3, CN II-XII intact and normal gait; Absent motor sensory deficit Psychiatric Psychiatric exam: Present normal affect and normal mood Skin Skin exam: Present warm and dry Medical Decision Making Medical Records Medical records reviewed: Yes I reviewed the patient's medical records. [place] Inquiry Pt receiving controlled substance: No Vital Signs: 10/12/23 10:07 10/12/23 10:31 10/12/23 12:01 Temperature 98.0 F Temperature Source Oral Pulse Rate 58 L 54 L Pulse Rate [Right] 64 Respiratory Rate 18 20 18 Blood Pressure 131/98 H 102/46 L Blood Pressure [Right Arm] 153/71 H Blood Pressure Mean 105 64 Blood Pressure Mean [Right Arm] 98 Blood Pressure Source Blood Pressure Source [Right Arm] Automatic Cuff 02 Sat by Pulse Oximetry 97 96 97 Oxygen Delivery Method Room Air 10/12/23 12:30 Temperature 98.0 F Temperature Source Oral Pulse Rate 62 Pulse Rate [Right] Respiratory Rate 16 Blood Pressure 110/66 Blood Pressure [Right Arm] Blood Pressure Mean Blood Pressure Mean [Right Arm] Blood Pressure Source Automatic Cuff Blood Pressure Source [Right Arm] 02 Sat by Pulse Oximetry Oxygen Delivery Method Room Air Lab Data Lab results reviewed: Yes I reviewed the patient's lab results. Lab Results 10/12/23 10:37: WBC 8.8, RBC 4.75, Hgb 15.3, Hct 47.2 H, MCV 99.4 H, MCH 32.1 H, MCHC 32.3, RDW 13.7, Plt Count 212, MPV 7.7, Neut % (Auto) 62.6, Lymph % (Auto) 26.6, [place] % (Auto) 7.9, Eos % (Auto) 1.6, Baso % (Auto) 1.3, Neut # (Auto) 5.5, Lymph # (Auto) 2.3, [place] # (Auto) 0.7, Eos # (Auto) 0.1, Baso # (Auto) 0.1, Sodium 138, Potassium 4.4, Chloride 105, Carbon Dioxide 30, Anion Gap 7.4, BUN 10, Creatinine 0.60, Estimated Creat Clear 75, Estimated GFR 102, Est GFR ( Amer) 123, Glucose 97, Calcium 8.9, Total Bilirubin 0.4, AST 38 H, ALT 28, Alkaline Phosphatase 77, Total Protein 7.0, Albumin 3.9, Globulin 3.1, Albumin/Globulin Ratio 1.3 10/12/23 10:37 10/12/23 10:37 Orders (Tests/Meds): ED MEDICATIONS Discontinued Medications Generic Name Dose Route Start Last Admin Trade Name Freq PRN Reason Stop Dose Admin Acetaminophen 1,000 mg 10/12/23 10:29 10/12/23 10:41 Acetaminophen 500mg Tab PO 10/12/23 10:30 1,000 mg ONCE ONE Administration Ketorolac Tromethamine 15 mg 10/12/23 10:29 10/12/23 10:41 Ketorolac 30mg/Ml Vial IV 10/12/23 10:30 15 mg ONCE ONE Administration Lidocaine 1 each 10/12/23 10:29 10/12/23 10:41 Lidocaine 5% Transdermal Patch TP 10/12/23 10:30 1 each ONCE ONE Administration Methocarbamol 500 mg 10/12/23 10:30 10/12/23 10:41 Methocarbamol 500mg Tablet PO 10/12/23 10:31 500 mg ONCE ONE Administration Ondansetron HCl 4 mg 10/12/23 12:18 10/12/23 12:19 Ondansetron 4mg Odt SL 10/12/23 12:19 4 mg ONCE ONE Administration Oxycodone HCl 5 mg 10/12/23 11:50 10/12/23 12:19 Oxycodone 5mg Immediate Release Tablet PO 10/12/23 11:51 5 mg ONCE ONE Administration ORDERS Category Date Time Status CT cervical spine wo con Stat Cat Scan 10/12/23 10:[address] chest wo con Stat Cat Scan 10/12/23 10:[address] thoracic spine wo con Stat Cat Scan 10/12/23 10:30 Completed Complete Blood Count Auto Diff Stat Lab 10/12/23 10:37 Completed Comprehensive Metabolic Panel Stat Lab 10/12/23 10:37 Completed Medical Decision Narrative: In summary, this patient is a 58-year-old female presenting to the Emergency Department for evaluation of left chest wall pain after mechanical ground-level fall that happened a week ago. Differential diagnoses considered include but are not limited to rib fractures, rib contusion, pulmonary contusion, musculoskeletal strain/sprain, pneumothorax. Ruling out the most morbid conditions drove assessment. On exam, the patient is well-appearing. She has normal vital signs on cardiac telemetry with no hypoxia, tachycardia, or other concerns. Her pain is reproducible with palpation and movement. I feel it is likely musculoskeletal. To further evaluate for possible traumatic injury, workup included CT chest without contrast, CT c-spine, CT L-spine. She was given IV Toradol, oral Tylenol, topical Lidoderm patch, and oral Robaxin. I independently interpreted CT scans prior to the radiologist read and noted no acute fracture, pneumothorax, or other concern. Please see their read for final interpretation. On reassessment, patient has improvement in her pain, but her pain is continued. She was given oral oxycodone for continued improvement as well as Zofran as she often has nausea with administration of narcotics. She is resting calmly with normal vital signs on cardiac telemetry. Given reassuring workup and exam, I do feel she is appropriate for discharge with instructions for supportive management of musculoskeletal pain as a result of the fall. She was given prescriptions for naproxen, Robaxin, and Lidoderm patches as well as instructions for close patient follow-up and strict return precautions. She was discharged in stable condition after all questions were answered. Critical Care Critical Care Time Critical Care Time: No
[2023-10-12 10:31] VITALS: BP 131/98; PULSE 58; RESP 20; O2SAT 96
[2023-10-12] MEDS: KETOROLAC 30MG/ML VIAL 15 MG IV (10:41)
[2023-10-12] MEDS: METHOCARBAMOL 500MG TABLET 500 MG PO (10:41)
[2023-10-12] MEDS: ACETAMINOPHEN 500MG TAB 1000 MG PO (10:41)
[2023-10-12] MEDS: LIDOCAINE 5% TRANSDERMAL PATCH 1 EACH TP (10:41)
[2023-10-12 10:58] LABS: Basophils # 0.1 K/mm3 (0-0.2); Basophils % 1.3 % (0.1-2.0); Eosinophils # 0.1 K/mm3 (0.0-0.4); Eosinophils % 1.6 % (0.1-12.0); Hematocrit 47.2 % (37.0-47.0); Hemoglobin 15.3 g/dL (12.2-16.2); Lymphocytes # 2.3 K/mm3 (0.7-4.5); Lymphocytes % 26.6 % (10-50); Mean Corpuscular HGB Conc 32.3 g/dL (31.8-35.4); Mean Corpuscular Hemoglobin 32.1 pg (27.0-31.2); Mean Corpuscular Volume 99.4 fl (81-99); Mean Platelet Volume 7.7 fl (7.4-10.4); Monocytes # 0.7 K/mm3 (0.1-1.0); Monocytes % 7.9 % (1.7-9.3); Neutrophils # 5.5 K/mm3 (1.8-7.8); Neutrophils % 62.6 % (37.0-80.0); Platelet Count 212 K/mm3 (142-424); Red Blood Count 4.75 M/mm3 (4.20-5.40); Red Cell Distribution Width 13.7 % (11.5-17.5); White Blood Count 8.8 K/mm3 (4.8-10.8)
[2023-10-12 11:07] LABS: Chloride 105 mmol/L (98-107); Potassium 4.4 mmoL/L (3.5-5.1); Sodium 138 mmol/L (136-145)
[2023-10-12 11:09] LABS: Alanine Aminotransferase 28 U/L (12-78); Aspartate Amino Transferase 38 U/L (14-36); Blood Urea Nitrogen 10 mg/dl (7-17); Creatinine Clearance Estimated 75 mL/min (50-200); Estimated Glomerular Filt Rate 102 ml/min (>60); GFR (African American) 123 ML/MIN (>60)
[2023-10-12 11:10] LABS: Albumin Level 3.9 g/dl (3.5-5.0); Albumin/Globulin Ratio 1.3 (1.1-1.8); Alkaline Phosphatase 77 U/L (38-126); Anion Gap 7.4 mEq/L (5-15); Bilirubin,Total 0.4 mg/dl (0.2-1.3); Calcium 8.9 mg/dl (8.4-10.2); Carbon Dioxide 30 mmol/L (22.0-30.0); Globulin 3.1 g/dL (1.3-3.2); Glucose 97 mg/dl (74-100)
[2023-10-12 12:01] VITALS: BP 102/46; PULSE 54; RESP 18; O2SAT 97
[2023-10-12] MEDS: OXYCODONE 5MG IMMEDIATE RELEASE TABLET 5 MG PO (12:19)
[2023-10-12] MEDS: ONDANSETRON 4MG ODT 4 MG SL (12:19)
[2023-10-12 12:30] VITALS: BP 110/66; PULSE 62; RESP 16; TEMP 36.7; O2SAT 97
== END 2023-10-12 12:31 | disposition home or self-care (01) ==
PROVIDERS: Emergency Provider Emergency Medicine; PCP Family Medicine
DX: R07.89 Other chest pain (principal); S20.212A Contusion of left front wall of thorax, initial encounter; M25.512 Pain in left shoulder; S00.93XA Contusion of unspecified part of head, initial encounter; S80.211A Abrasion, right knee, initial encounter; G35 Multiple sclerosis; I10 Essential (primary) hypertension; E78.5 Hyperlipidemia, unspecified; W10.1XXA Fall (on)(from) sidewalk curb, initial encounter; F17.210 Nicotine dependence, cigarettes, uncomplicated
CPT/HCPCS: 71250; 72125; 72128; 80053; 85025; 96374; 99285

== ENCOUNTER 2023-11-15 07:28 | Outpatient (CLI) | payer MEDICARE, SELFPAY ==
[2023-11-15 07:58] LABS: Blood Urea Nitrogen 9 mg/dl (7-17); Estimated Glomerular Filt Rate 85 ml/min (>60); GFR (African American) 103 ML/MIN (>60)
--- NOTE | 2023-11-15 08:19 | CT_ITS ---
FINAL REPORT CLINICAL HISTORY: Adrenal Mass COMPARISON: Report available from CT of the abdomen dated 07/15/2022. FINDINGS: CT ABDOMEN WITH AND WITHOUT CONTRAST: CT of the abdomen and pelvis was performed with and without intravenous contrast to evaluate bilateral adrenal nodule seen on the prior CT of June 2022. The left adrenal mass measures 20 x 16 mm in size, and precontrast measures -3 Hounsfield units. There is greater than 50% washout on delayed exam after contrast administration. The smaller mass in the right adrenal measures less than 0 Hounsfield units and measures less than 10 mm in size. The liver is otherwise unremarkable in appearance. The gallbladder has been surgically resected. The spleen and pancreas are normal. There are right renal nonobstructing stones present. 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 IMPRESSION: Left larger than right adrenal masses, essentially stable in size when compared to the prior CT report of June 2022, with enhancement and washout characteristics most compatible with adrenal adenomas. Nonobstructing right renal stones are present. Reviewed, Interpreted and Dictated by Casper Collins MD Transcribed by Sophia Welch Authenticated and [facility]
[2023-11-15] MEDS: IOPAMIDOL-370 (76%);100ML BOTTLE 75 ML IV (08:33)
[2023-11-15] MEDS: SODIUM CHLORIDE 0.9% 10ML SYR (RAD ONLY) 10 ML IV (08:33)
== END 2023-11-15 23:59 | disposition home or self-care (01) ==
LOC: RAD 07:28
PROVIDERS: PCP Family Medicine; Visit Provider Internal Medicine Endocrinology, Diabetes & Metabolism
DX: E27.8 Other specified disorders of adrenal gland (principal)
CPT/HCPCS: 36415; 74170; 82565; 84520; Q9967

== ENCOUNTER 2024-01-02 07:45 | Outpatient (CLI) | payer MEDICARE, SELFPAY ==
--- NOTE | 2024-01-02 07:47 | MM_ITS ---
PROCEDURE INFORMATION: Exam: MG Bilateral Screening 3D Mammography Exam date and time: 01/02/2024 7:51 AM Age: 58 years old Clinical indication: Screening examination. Her sister had breast cancer. TECHNIQUE: Imaging protocol: Bilateral Screening tomosynthesis and 2D mammography including computer-aided detection (CAD) when performed. COMPARISON: 1. MG MM DIG SCREENING MAMM BI W/CAD 12/19/2022 7:56 AM 2. MG MM DIG SCREENING MAMM BI W/CAD 12/16/2021 9:44 AM 3. MG MM DIG SCREENING MAMM BI W/CAD 12/16/2020 1:20 PM 4. MG SCBI MM Dig screening mamm BI w/CAD 10/15/2018 9:15 AM FINDINGS: MAMMOGRAPHY: Breast composition: There are scattered areas of fibroglandular density. Mass: None. Architectural distortion: None. Calcifications: No suspicious calcifications. Asymmetric density: None. Skin thickening: None. Axillary adenopathy: None. IMPRESSION: No mammographic evidence of malignancy. Annual screening is recommended unless otherwise clinically indicated. ASSESSMENT: BI-RADS Category 1: Negative
== END 2024-01-02 23:59 | disposition home or self-care (01) ==
LOC: RAD 07:45
PROVIDERS: PCP Family Medicine; Visit Provider Family Medicine
DX: Z12.31 Encounter for screening mammogram for malignant neoplasm of breast (principal)
CPT/HCPCS: 77063; 77067

== ENCOUNTER 2024-01-08 13:48 | Emergency (ER) | payer MEDICARE, SELFPAY ==
[2024-01-08 13:51] VITALS: BP 140/72; PULSE 63; RESP 20; TEMP 36.7; O2SAT 95; BMI 40.2
--- NOTE | 2024-01-08 14:03 | ED_ITS ---
<Statement entered by Roselia Lambert DO - 01/08/24 23:58> I was consulted by the DAVI, and we discussed the complexity of the problems being addressed. I approved the treatment and management plan for this patient's care in the emergency department, thus performing a substantive portion of the medical decision making. Roselia Lambert DO Discharge Plan Disposition Patient Disposition: Home, Self-Care Condition: Good Prescriptions Prescriptions: No Action albuterol sulfate 90 MCG aero powdr breath act w/sensor 90 mcg inhalation DIRECTED cholecalciferol (vitamin D3) 50 MCG capsule 50 mcg PO DAILY naproxen 500 mg tablet 500 mg PO Q12H PRN (Reason: pain) Qty: 20 0RF methocarbamol 750 mg tablet 750 mg PO Q8H PRN (Reason: pain) Qty: 20 0RF lidocaine [Lidoderm] 5 % adhesive patch,medicated 1 patch topical DAILY Qty: 15 0RF Rx Instructions: leave on most painful area for up to 12 hrs bisoprolol-hydrochlorothiazide 1 EACH tablet 1 each PO DAILY Patient Comments: take 1 tablet by mouth once daily erythromycin 5 mg/gram (0.5 %) ointment 0.5 inch ophthalmic (eye) QID 7 Days Qty: 3.5 0RF Rx Instructions: apply small ribbon to conjunctiva left eye Referrals Follow up/Referrals: Martinez Norton MD [Primary Care Provider] - See instructions Activity Restrictions/Add. Instructions Additional Instructions/Restrictions: Please follow-up with Dr. Wright's office both for your dependent edema as well as chest pain. Return to ER for any worsening signs or symptoms as needed. Please follow-up with your PCP within 1 week. Clinical Impressions Clinical Impression: Acute chest wall pain, Peripheral edema Instructions Patient Instructions: DI for Atypical Chest Pain, DI for Peripheral Edema -- Bilateral Discharge ED Provider: Roselia Lambert General Adult HPI <LIONEL Carranza - Last Filed: 01/08/24 17:48> General Chief complaint: Extremity Injury, Lower Stated complaint: Pain in L underarm/chest area, pain in legs Time Seen by Provider: 01/08/24 14:02 History of Present Illness HPI narrative: Patient presents to the ER for multiple complaints. Patient states that her #1 reason for coming is left chest wall pain that began 2 hours prior to presentation. Patient also reports that she has had bilateral lower extremity swelling and that is worse in the afternoon. Patient states that the chest wall pain comes and goes sometimes worse with deep inspiration but there is no aggravating or relieving factors. She denies substernal or radiating chest pain shortness of breath fever chills hemoptysis hematochezia melena nausea vomiting diarrhea. Patient does report that she has a right lung nodule morbid obesity hypertension multiple sclerosis and occasional chronic pain. Related Data Home Medications Medication Instructions Recorded Confirmed bisoprolol 2.5 1 each PO DAILY mitral valve 07/30/18 07/21/22 mg-hydrochlorothiazide 6.25 mg prolapse tablet albuterol sulfate 90 mcg/actuation 90 mcg inhalation DIRECTED COPD 07/06/19 07/21/22 breath activated powder inhaler,sensor cholecalciferol (vitamin D3) 50 50 mcg PO DAILY Supplement 07/06/19 07/21/22 mcg (2,000 unit) capsule Previous Rx's Medication Instructions Recorded erythromycin 5 mg/gram (0.5 %) eye 0.5 inch ophthalmic (eye) QID 7 10/05/22 ointment days #3.5 grams lidocaine 5 % topical patch 1 patch topical DAILY #15 ea 10/12/23 (Lidoderm) methocarbamol 750 mg tablet 750 mg PO Q8H PRN pain #20 tabs 10/12/23 naproxen 500 mg tablet 500 mg PO Q12H PRN pain #20 tabs 10/12/23 Allergies Allergy/AdvReac Type Severity Reaction Status Date / Time hydrocodone [From LORTAB] AdvReac Mild NA-NAUSEA/V Verified 07/21/22 10:38 OMITING [facility] <LIONEL Carranza - Last Filed: 01/08/24 17:48> [facility] Disclaimer: The information contained in this section may have been updated after the patient was seen, as this information can be updated by other users. Surgical History History of hysterectomy History of colon resection History of colonoscopy Social History Smoking Status: Current every day smoker tobacco type: cigarettes packs per day: 1 second hand exposure: Yes alcohol intake: never substance use type: denies use current occupational status: other Travel in the last 8 weeks: None household members: spouse housing: house caffeine: Yes <LIONEL Carranza - Last Filed: 01/08/24 17:48> ROS Obtained: Yes Systems reviewed as appropriate & no additional complaints except as documented Physical Exam <LIONEL Carranza - Last Filed: 01/08/24 17:48> General General appearance: alert and in no apparent distress Chest Chest inspection: Present normal inspection, symmetric chest wall rise and tenderness (Tender to palpation in the left axillary line around nipple level); Absent rash Respiratory Respiratory exam: Present normal lung sounds bilaterally; Absent respiratory distress, wheezes, stridor or accessory muscle use Cardiovascular Cardiovascular exam: Present regular rate, normal rhythm, normal heart sounds, +S1 and +S2 Back Exam Back exam: Present normal inspection and full ROM Neurological Exam Neurological exam: Present alert and oriented X3 Skin Skin exam: Present warm, dry and normal color; Absent rash Medical Decision Making <LIONEL Carranza - Last Filed: 01/08/24 17:48> Medical Records Medical records reviewed: Yes I reviewed the patient's medical records. Davis Inquiry Pt receiving controlled substance: No Vital Signs: 01/08/24 13:51 01/08/24 14:41 01/08/24 16:29 Temperature 98.1 F Temperature Source Oral Pulse Rate 60 53 L Pulse Rate [Right Radial] 63 Respiratory Rate 20 14 Blood Pressure 102/54 L 107/44 L Blood Pressure [Right Arm] 140/72 Blood Pressure Mean [Right Arm] 94 02 Sat by Pulse Oximetry 95 98 96 Oxygen Delivery Method Room Air Room Air Room Air 01/08/24 17:55 Temperature 98.0 F Temperature Source Pulse Rate 70 Pulse Rate [Right Radial] Respiratory Rate 20 Blood Pressure 144/78 H Blood Pressure [Right Arm] Blood Pressure Mean [Right Arm] 02 Sat by Pulse Oximetry Oxygen Delivery Method Room Air Lab Data Lab results reviewed: Yes I reviewed the patient's lab results. Lab Results 01/08/24 14:28: WBC 10.8, RBC 4.86, Hgb 15.7, Hct 48.0 H, MCV 98.8, MCH 32.3 H, MCHC 32.7, RDW 14.0, Plt Count 246, MPV 7.3 L, Neut % (Auto) 57.1, Lymph % (Auto) 32.2, Sp[place]ding % (Auto) 7.6, Eos % (Auto) 2.0, Baso % (Auto) 1.2, Neut # (Auto) 6.1, Lymph # (Auto) 3.5, [place] # (Auto) 0.8, Eos # (Auto) 0.2, Baso # (Auto) 0.1, Sodium 139, Potassium 4.1, Chloride 103, Carbon Dioxide 30, Anion Gap 10.1, BUN 7, Creatinine 0.60, Estimated Creat Clear 157, Estimated GFR 102, Est GFR ( Amer) 123, Glucose 107 H, Calcium 9.1, Magnesium 1.8, Total Bilirubin 0.6, AST 28, ALT 19, Alkaline Phosphatase 86, Troponin I < 0.01, NT-Pro-B Natriuret Pep 124, Total Protein 7.8, Albumin 4.3, Globulin 3.5 H, Albumin/Globulin Ratio 1.2 01/08/24 17:00: Troponin I < 0.01 01/08/24 14:28 01/08/24 14:28 Orders (Tests/Meds): ED MEDICATIONS Discontinued Medications Generic Name Dose Route Start Last Admin Trade Name Freq PRN Reason Stop Dose Admin Acetaminophen 1,000 mg 01/08/24 14:14 01/08/24 14:20 Acetaminophen 500mg Tab PO 01/08/24 14:15 1,000 mg ONCE ONE Administration Furosemide 80 mg 01/08/24 14:26 01/08/24 14:40 Furosemide 100mg/10ml Vial IV 01/08/24 14:27 80 mg ONCE ONE Administration Ibuprofen 800 mg 01/08/24 14:14 01/08/24 14:20 Ibuprofen 400 Mg Tablet PO 01/08/24 14:15 800 mg ONCE ONE Administration ORDERS Category Date Time Status Chest XR -- portable [XR chest portable] Stat Exams 01/08/24 14:14 Completed BNP [NT Pro Brain Natriuretic Pep.] Stat Lab 01/08/24 14:28 Completed CBC w/Auto Diff [Complete Blood Count Auto Diff] Stat Lab 01/08/24 14:28 Completed CMP [Comprehensive Metabolic Panel] Stat Lab 01/08/24 14:28 Completed Magnesium Stat Lab 01/08/24 14:28 Completed Trop I [Troponin I] Stat Lab 01/08/24 14:28 Completed Troponin I Q3H Lab 01/08/24 17:00 Completed HEART Score History (anamnesis): Slightly suspicious ECG: Non-specific disturbance Age: >65 years Troponin: </= normal limit Medical Decision Narrative: In summary patient is a 58-year-old female who presents to the emergency department for evaluation of chest wall pain and dependent edema. Patient is hemodynamically stable upon arrival, afebrile. Physical exam is remarkable for reproducible chest wall pain in the left axillary line but no bony deformities or rashes noted. Breath sounds are equal bilaterally to the bases.. Differential diagnosis includes musculoskeletal pain versus ACS versus pneumonia etc. Initial workup will be conducted with hematologic labs twelve-lead EKG plain film chest x-ray. Initial interventions include Tylenol Motrin. Initial workup reviewed by me and her troponin is currently undetectable and the remainder of her hematologic labs are nonactionable. My informal interpretation of her plain film chest x-ray shows no acute processes. Upon repeat evaluation patient has had resolution of her chest wall pain. Given this the patient was placed in observation status at 1537. Medical necessity for observational status is serial troponins. The patient was provided serial reevaluations continuous cardiac monitoring and pulse oximetry while awaiting results. Her second troponin is also undetectable. Given this patient is appropriate for discharge with follow-up with her PCP and cardiology. Total time in observation was 120 minutes. <Roselia Lambert, DO - Last Filed: 01/08/24 23:58> Vital Signs: 01/08/24 13:51 01/08/24 14:41 01/08/24 16:29 Temperature 98.1 F Temperature Source Oral Pulse Rate 60 53 L Pulse Rate [Right Radial] 63 Respiratory Rate 20 14 Blood Pressure 102/54 L 107/44 L Blood Pressure [Right Arm] 140/72 Blood Pressure Mean [Right Arm] 94 02 Sat by Pulse Oximetry 95 98 96 Oxygen Delivery Method Room Air Room Air Room Air 01/08/24 17:55 Temperature 98.0 F Temperature Source Pulse Rate 70 Pulse Rate [Right Radial] Respiratory Rate 20 Blood Pressure 144/78 H Blood Pressure [Right Arm] Blood Pressure Mean [Right Arm] 02 Sat by Pulse Oximetry Oxygen Delivery Method Room Air Lab Data Lab Results 01/08/24 14:28: WBC 10.8, RBC 4.86, Hgb 15.7, Hct 48.0 H, MCV 98.8, MCH 32.3 H, MCHC 32.7, RDW 14.0, Plt Count 246, MPV 7.3 L, Neut % (Auto) 57.1, Lymph % (Auto) 32.2, [place] % (Auto) 7.6, Eos % (Auto) 2.0, Baso % (Auto) 1.2, Neut # (Auto) 6.1, Lymph # (Auto) 3.5, Sp[place]ding # (Auto) 0.8, Eos # (Auto) 0.2, Baso # (Auto) 0.1, Sodium 139, Potassium 4.1, Chloride 103, Carbon Dioxide 30, Anion Gap 10.1, BUN 7, Creatinine 0.60, Estimated Creat Clear 157, Estimated GFR 102, Est GFR ( Amer) 123, Glucose 107 H, Calcium 9.1, Magnesium 1.8, Total Bilirubin 0.6, AST 28, ALT 19, Alkaline Phosphatase 86, Troponin I < 0.01, NT-Pro-B Natriuret Pep 124, Total Protein 7.8, Albumin 4.3, Globulin 3.5 H, Albumin/Globulin Ratio 1.2 01/08/24 17:00: Troponin I < 0.01 Orders (Tests/Meds): ED MEDICATIONS Discontinued Medications Generic Name Dose Route Start Last Admin Trade Name Freq PRN Reason Stop Dose Admin Acetaminophen 1,000 mg 01/08/24 14:14 01/08/24 14:20 Acetaminophen 500mg Tab PO 01/08/24 14:15 1,000 mg ONCE ONE Administration Furosemide 80 mg 01/08/24 14:26 01/08/24 14:40 Furosemide 100mg/10ml Vial IV 01/08/24 14:27 80 mg ONCE ONE Administration Ibuprofen 800 mg 01/08/24 14:14 01/08/24 14:20 Ibuprofen 400 Mg Tablet PO 01/08/24 14:15 800 mg ONCE ONE Administration ORDERS Category Date Time Status Chest XR -- portable [XR chest portable] Stat Exams 01/08/24 14:14 Completed BNP [NT Pro Brain Natriuretic Pep.] Stat Lab 01/08/24 14:28 Completed CBC w/Auto Diff [Complete Blood Count Auto Diff] Stat Lab 01/08/24 14:28 Completed CMP [Comprehensive Metabolic Panel] Stat Lab 01/08/24 14:28 Completed Magnesium Stat Lab 01/08/24 14:28 Completed Trop I [Troponin I] Stat Lab 01/08/24 14:28 Completed Troponin I Q3H Lab 01/08/24 17:00 Completed ECG Data Tracing #1: I reviewed this ECG and interpreted as documented below: Sinus bradycardia with a ventricular rate of [address] changes concerning for ischemia, patient does have Q waves noted in leads II III and aVF. ECG initial impression date: 01/08/24 ECG initial impression time: 15:06 <Jose Benito MD - Last Filed: 01/12/24 15:27> Vital Signs: 01/08/24 13:51 01/08/24 14:41 01/08/24 16:29 Temperature 98.1 F Temperature Source Oral Pulse Rate 60 53 L Pulse Rate [Right Radial] 63 Respiratory Rate 20 14 Blood Pressure 102/54 L 107/44 L Blood Pressure [Right Arm] 140/72 Blood Pressure Mean [Right Arm] 94 02 Sat by Pulse Oximetry 95 98 96 Oxygen Delivery Method Room Air Room Air Room Air 01/08/24 17:55 Temperature 98.0 F Temperature Source Pulse Rate 70 Pulse Rate [Right Radial] Respiratory Rate 20 Blood Pressure 144/78 H Blood Pressure [Right Arm] Blood Pressure Mean [Right Arm] 02 Sat by Pulse Oximetry Oxygen Delivery Method Room Air Lab Data Lab Results 01/08/24 14:28: WBC 10.8, RBC 4.86, Hgb 15.7, Hct 48.0 H, MCV 98.8, MCH 32.3 H, MCHC 32.7, RDW 14.0, Plt Count 246, MPV 7.3 L, Neut % (Auto) 57.1, Lymph % (Auto) 32.2, [place] % (Auto) 7.6, Eos % (Auto) 2.0, Baso % (Auto) 1.2, Neut # (Auto) 6.1, Lymph # (Auto) 3.5, [place] # (Auto) 0.8, Eos # (Auto) 0.2, Baso # (Auto) 0.1, Sodium 139, Potassium 4.1, Chloride 103, Carbon Dioxide 30, Anion Gap 10.1, BUN 7, Creatinine 0.60, Estimated Creat Clear 157, Estimated GFR 102, Est GFR ( Amer) 123, Glucose 107 H, Calcium 9.1, Magnesium 1.8, Total Bilirubin 0.6, AST 28, ALT 19, Alkaline Phosphatase 86, Troponin I < 0.01, NT-Pro-B Natriuret Pep 124, Total Protein 7.8, Albumin 4.3, Globulin 3.5 H, Albumin/Globulin Ratio 1.2 01/08/24 17:00: Troponin I < 0.01 Orders (Tests/Meds): ED MEDICATIONS Discontinued Medications Generic Name Dose Route Start Last Admin Trade Name Chantal PRN Reason Stop Dose Admin Acetaminophen 1,000 mg 01/08/24 14:14 01/08/24 14:20 Acetaminophen 500mg Tab PO 01/08/24 14:15 1,000 mg ONCE ONE Administration Furosemide 80 mg 01/08/24 14:26 01/08/24 14:40 Furosemide 100mg/10ml Vial IV 01/08/24 14:27 80 mg ONCE ONE Administration Ibuprofen 800 mg 01/08/24 14:14 01/08/24 14:20 Ibuprofen 400 Mg Tablet PO 01/08/24 14:15 800 mg ONCE ONE Administration ORDERS Category Date Time Status Chest XR -- portable [XR chest portable] Stat Exams 01/08/24 14:14 Completed BNP [NT Pro Brain Natriuretic Pep.] Stat Lab 01/08/24 14:28 Completed CBC w/Auto Diff [Complete Blood Count Auto Diff] Stat Lab 01/08/24 14:28 Completed CMP [Comprehensive Metabolic Panel] Stat Lab 01/08/24 14:28 Completed Magnesium Stat Lab 01/08/24 14:28 Completed Trop I [Troponin I] Stat Lab 01/08/24 14:28 Completed Troponin I Q3H Lab 01/08/24 17:00 Completed Medical Decision Narrative: In summary patient is a 58-year-old female who presents to the emergency department for evaluation of chest wall pain and dependent edema. Patient is hemodynamically stable upon arrival, afebrile. Physical exam is remarkable for reproducible chest wall pain in the left axillary line but no bony deformities or rashes noted. Breath sounds are equal bilaterally to the bases.. Differential diagnosis includes musculoskeletal pain versus ACS versus pneumonia etc. Initial workup will be conducted with hematologic labs twelve-lead EKG plain film chest x-ray. Initial interventions include Tylenol Motrin. Initial workup reviewed by me and her troponin is currently undetectable and the remainder of her hematologic labs are nonactionable. My informal interpretation of her plain film chest x-ray shows no acute processes. Upon repeat evaluation patient has had resolution of her chest wall pain. Given this the patient was placed in observation status at 1537. Medical necessity for observational status is serial troponins. The patient was provided serial reevaluations continuous cardiac monitoring and pulse oximetry while awaiting results. Her second troponin is also undetectable. Given this patient is appropriate for discharge with follow-up with her PCP and cardiology. Total time in observation was 120 minutes. I was consulted by the DAVI, and we discussed the complexity of the problems being addressed. I approved the treatment and management plan for this patient?s care in the Emergency Department, thus performing a substantive portion of the medical decision making. Jose Benito MD Critical Care <LIONEL Carranza - Last Filed: 01/08/24 17:48> Critical Care Time Critical Care Time: No
--- NOTE | 2024-01-08 14:14 | XR_ITS ---
FINAL REPORT TECHNIQUE: Single view chest CLINICAL HISTORY: Chest pain FINDINGS: A single view of the chest was obtained. The heart and mediastinum are within normal limits. The lungs are clear. There is no pneumothorax. Osseous structures are unremarkable. IMPRESSION: No acute cardiopulmonary process. Reviewed, Interpreted and Dictated by Casper Collins MD Transcribed by Chaparrita Valerio Authenticated and [facility]
[2024-01-08] MEDS: ACETAMINOPHEN 500MG TAB 1000 MG PO (14:20)
[2024-01-08] MEDS: IBUPROFEN 400 MG TABLET 800 MG PO (14:20)
[2024-01-08] MEDS: FUROSEMIDE 100MG/10ML VIAL 80 MG IV (14:40)
[2024-01-08 14:41] VITALS: BP 102/54; PULSE 60; RESP 14; O2SAT 98
[2024-01-08 14:43] LABS: Basophils # 0.1 K/mm3 (0-0.2); Basophils % 1.2 % (0.1-2.0); Eosinophils # 0.2 K/mm3 (0.0-0.4); Hemoglobin 15.7 g/dL (12.2-16.2); Lymphocytes # 3.5 K/mm3 (0.7-4.5); Lymphocytes % 32.2 % (10-50); Mean Corpuscular HGB Conc 32.7 g/dL (31.8-35.4); Mean Corpuscular Hemoglobin 32.3 pg (27.0-31.2); Mean Corpuscular Volume 98.8 fl (81-99); Mean Platelet Volume 7.3 fl (7.4-10.4); Monocytes # 0.8 K/mm3 (0.1-1.0); Monocytes % 7.6 % (1.7-9.3); Neutrophils # 6.1 K/mm3 (1.8-7.8); Neutrophils % 57.1 % (37.0-80.0); Platelet Count 246 K/mm3 (142-424); Red Blood Count 4.86 M/mm3 (4.20-5.40); White Blood Count 10.8 K/mm3 (4.8-10.8)
[2024-01-08 14:58] LABS: Chloride 103 mmol/L (98-107)
[2024-01-08 14:59] LABS: Potassium 4.1 mmoL/L (3.5-5.1); Sodium 139 mmol/L (136-145)
[2024-01-08 15:01] LABS: Alanine Aminotransferase 19 U/L (12-78); Alkaline Phosphatase 86 U/L (38-126); Anion Gap 10.1 mEq/L (5-15); Aspartate Amino Transferase 28 U/L (14-36); Bilirubin,Total 0.6 mg/dl (0.2-1.3); Blood Urea Nitrogen 7 mg/dl (7-17); Carbon Dioxide 30 mmol/L (22.0-30.0); Creatinine Clearance Estimated 157 mL/min (50-200); Estimated Glomerular Filt Rate 102 ml/min (>60); GFR (African American) 123 ML/MIN (>60)
[2024-01-08 15:02] LABS: Albumin Level 4.3 g/dl (3.5-5.0); Albumin/Globulin Ratio 1.2 (1.1-1.8); Calcium 9.1 mg/dl (8.4-10.2); Globulin 3.5 g/dL (1.3-3.2); Glucose 107 mg/dl (74-100); Magnesium 1.8 mg/dl (1.6-2.3); Total Protein,Serum 7.8 g/dl (6.3-8.2)
--- NOTE | 2024-01-08 15:05 | ECG_ITS ---
APPROVED REPORT Exam: Resting ECG HR:56 bpm ECG Measurements Heart Rate 56 AXES WV 180 P 41 QRSd 92 QRS 88 QT 433 T 45 QTc 425 Conclusion SINUS BRADYCARDIA POSSIBLE INFERIOR MYOCARDIAL INFARCTION , OF INDETERMINATE AGE [30 ms Q WAVE IN II/aVF] ABNORMAL ECG Electronically signed by : IDANIA RIBERA, 01/09/2024 00:25:47
[2024-01-08 15:11] LABS: NT Pro Brain Natriuretic Pep. 124 pg/mL (0-125)
[2024-01-08 15:16] LABS: Troponin I < 0.01 ng/ml (0.00-0.034)
[2024-01-08 16:29] VITALS: BP 107/44; PULSE 53; O2SAT 96
--- NOTE | 2024-01-08 16:30 | PC.NURSE ---
Rounded on pt. No needs voiced at this time. Call light within reach
[2024-01-08 17:36] LABS: Troponin I < 0.01 ng/ml (0.00-0.034)
[2024-01-08 17:55] VITALS: BP 144/78; PULSE 70; RESP 20; TEMP 36.7; O2SAT 98
== END 2024-01-08 17:56 | disposition home or self-care (01) ==
PROVIDERS: Physician Assistant; Emergency Provider Emergency Medicine; PCP Family Medicine
DX: R07.89 Other chest pain (principal); R00.1 Bradycardia, unspecified; R60.0 Localized edema; G35 Multiple sclerosis; I10 Essential (primary) hypertension; E78.5 Hyperlipidemia, unspecified; F17.210 Nicotine dependence, cigarettes, uncomplicated
CPT/HCPCS: 71045; 80053; 83735; 83880; 84484; 85025; 93005; 96374; 99284; J1940

== ENCOUNTER 2024-01-30 06:03 | Outpatient (CLI) | payer MEDICARE, SELFPAY ==
--- NOTE | 2024-01-30 | CA_ITS ---
APPROVED REPORT Exam: Pharmacologic Technologist: Vicki Riley, Ht: 5 ft 2 in Wt: 217 lbs BSA: 1.98 m2 HR: 55 bpm BP: 136/57 mmHg Rhythm: NSR Medical History Medications: Vitamin D3,,,,, Atorvastatin,,,,, Albuterol,,,,, ValACYCLOVIR,,,,, BisOPROLOL-HCTZ,,,,, Estradilol 0.01%,,,,, Stress Test Details Test: LEXISCAN Reason for pharmacologic stress test: physical limitation. HR Resting HR: 55 bpm Max Heart Rate (APMHR): 160 bpm Max HR Achieved: 80 bpm Target HR (85% APMHR): 136 bpm % of APMHR: 50 Recovery HR: 67 bpm BP Resting BP: 136.0/57.0 mmHg Max BP: 136.0/57.0 mmHg Recovery BP: 110.0/50.0 mmHg ECG Resting ECG: Sinus bradycardia Stress ECG: No significant ST changes Arrhythmia: None Clinical Exercise duration: 04:02 min Highest Stage Achieved: Exercise capacity: 1.0 METs Stress ECG Conclusion Symptoms: Dyspnea, chest tightness Arrhythmias/Ectopy: None ST-T Changes: No significant ST changes Conclusion: Unremarkable Lexiscan portion of stress test. Myoview images reported separately. Test Summary REST . . . . . . . Resting REST 04:54 . . 55 . 136/ 57 . . Stage 1 . . . . . . . Myoview Injected Stage 1 01:00 . . 79 . . . . Stage 2 01:00 . . 76 . . . . Stage 3 01:00 . . 74 . 117/ 63 . . Stage 4 01:00 . . 69 . 111/ 78 . . Stage 4 01:02 . . 70 . 111/ 78 . Stop exercise at 04:02 RECOVERY 01:00 . . 70 . 111/ 44 . . RECOVERY 02:00 . . 67 . 101/ 57 . . RECOVERY 03:00 . . 64 . 101/ 57 . . RECOVERY 03:47 . . 64 . 110/ 50 . . Electronically signed by : Neha Ferrer MD 02/04/2024 02:10:27
--- NOTE | 2024-01-30 | NM_ITS ---
APPROVED REPORT Exam: Nuclear Stress Test Indication: Chest pain, SOB, Abnormal EKG, Fatigue, HTN, High cholesterol, Tobacco use, Family history Patient Location: Outpatient Stress Tech: Vicki Tinajero NM Tech:Naheed Ayoub, ARRT, RT (R)(N) Ht: 5 ft 2 in Wt: 215 lbs Bra Size: D HR: 55 bpm BP: 136/57 mmHg BSA: 1.97 m2 TID: 1.25 BMI: 39.3 History: Chest pain, SOB, Abnormal EKG, Fatigue, HTN, High cholesterol, Tobacco use, Family history Procedure: Patient received 0.4 mg of intravenous Lexiscan, resting heart rate 55 bpm, resting blood pressure 136/57 mmHg, with Lexiscan maximum heart rate achieved was 80 bpm which is % of the maximum predicted heart rate and blood pressure was 136/57 mmHg. With Lexiscan, patient denied any complaint of chest pain. Cardiac Stress and Resting SPECT Images: Cardiac Stress and Resting SPECT images were obtained using technetium 99m Myoview 30.6 mCi stress and 10.42 mCi at rest. Resting and stress imaging in supine and prone positions demonstrate no evidence of fixed or reversible perfusion defects. There is increase in transient ischemic dilatation ratio (TID 1.25), suggestive of possible multivessel disease or balanced ischemia. Gated imaging demonstrates normal global and regional LV systolic function. LVEF is calculated at 74%. Conclusion: No evidence of fixed or reversible perfusion defects. There is increase in transient ischemic dilatation ratio (TID 1.25), suggestive of possible multivessel disease or balanced ischemia. Gated imaging demonstrates normal global and regional LV systolic function. LVEF is calculated at 74%. In the setting of TID with normal LV systolic function, further evaluation noninvasively with CCTA is suggested prior to proceeding with invasive coronary angiography to rule out multivessel disease. Electronically signed by : Neha Ferrer MD 02/04/2024 02:12:18
--- NOTE | 2024-01-30 08:18 | CA_ITS ---
APPROVED REPORT EXAM: Comprehensive 2D, Doppler, and color-flow Echocardiogram [employer]: Lisa Lewis CRT Ht: 5 ft 2 in Wt: 217lbs BSA: 1.98 BP: 101/63 mmHg Indications: Abnormal ECG, Chest Pain, Peripheral Edema, Hyperlipidemia, Hypertension/HDD, SMOKER, cad, abn ekg, multiple sclerosis 2D Dimensions LA Volume 29.00 mL LA Volume Index 14.30 mL/m2 (M/F) 16-34 M-Mode Dimensions RVDd 3.03 cm (0.9-2.6) LA Diam 3.64 cm (1.9-4.0) LVDd 3.71 cm (3.5-5.7) LVDs 2.38 cm (3.5-5.7) IVSd 1.93 cm (0.6-1.1) PWd 0.61 cm (0.6-1.1) EF (Teich) 66.30% FS 35.80% EDV (Teich) 58.50 mL TAPSE 1.58 (<1.7) ESV (Teich) 19.70 mL LV Diastology E Decel Time 277 (160-240 msec) E/A Ratio 0.64 MED A' 9.70 cm/s LAT A' 13.20 cm/s Aortic Valve AO Peak GR. 4.20 mmHg Mitral Valve MV A Velocity 90.0 (40-130 cm/s) E/A Ratio 0.64 Pulmonary Valve PV Peak Velocity 85.0 (50-150 cm/s) Tricuspid Valve TR P. Velocity 165.00 cm/s RAP Estimate 10.00 mmHg RVSP 20.90 mmHg Left Ventricle The left ventricle is normal size. The left ventricular systolic function is normal. The left ventricular ejection fraction is within the normal range. Proximal septal thickening is noted. There is normal LV segmental wall motion. The left ventricular diastolic function is normal. LVEF is 65%. Right Ventricle The right ventricle is mildly dilated. The right ventricular systolic function is normal. Atria The left atrium size is normal. The right atrium size is normal. There is no Doppler evidence of interatrial shunt. Aortic Valve The aortic valve opens well. There is no aortic valvular stenosis. No aortic regurgitation is present. Mitral Valve The mitral valve is normal in structure. No evidence of mitral valve stenosis. There is no mitral valve regurgitation noted. Tricuspid Valve The tricuspid valve leaflets are thin and pliable. Trace tricuspid regurgitation. There is insufficient TR jet to estimate RVSP. Pulmonic Valve The pulmonary valve is normal in structure. Trace pulmonic regurgitation. Great Vessels The aortic root is normal in size. The ascending aorta is not well-visualized. IVC is normal in size and collapses >50% with inspiration. Pericardium There is no pericardial effusion. Other Information Study Quality: Fair Conclusion Normal biventricular systolic function. Mild RV dilation. No significant valvular stenosis or regurgitation. Electronically signed by : Neha Ferrer MD 02/04/2024 01:20:22
== END 2024-01-30 23:59 | disposition home or self-care (01) ==
LOC: RAD 06:04
PROVIDERS: PCP Family Medicine; Visit Provider Nurse Practitioner Family
DX: I25.118 Atherosclerotic heart disease of native coronary artery with other forms of angina pectoris (principal); R07.9 Chest pain, unspecified; R94.31 Abnormal electrocardiogram [ECG] [EKG]; R06.09 Other forms of dyspnea; R60.0 Localized edema; F17.210 Nicotine dependence, cigarettes, uncomplicated
CPT/HCPCS: 78452; 93017; 93018; 93306; A9502; J2785

== ENCOUNTER 2024-02-19 08:57 | Outpatient (CLI) | payer MEDICARE, SELFPAY ==
[2024-02-19 06:29] VITALS: BMI 39.4
--- NOTE | 2024-02-19 08:57 | CT_ITS ---
APPROVED REPORT Scientific Photographer: CLINICAL INDICATION Chest Pain TECHNIQUE Image Acquisition: A 128 slice MDCT scanner (Deja View Conceptsa View) was used for data acquisition. A noncontrast coronary calcium scan was performed. A CT attenuation threshold of 130 Hounsfield units (HU) was used for the detection of calcium in contiguous voxels of 1 sq mm in area to be counted as individual lesions. Bolus tracking in the ascending aorta with a threshold of 180 HU was performed. Immediately afterwards, ECG synchronized cardiac CT was then performed from the cardiac base to apex using retrospective gating with ECG tube current modulation. A total of 85 mL of Isovue 370 mg/mL contrast medium was administered at 5 mL/sec followed by a saline flush using a biphasic injection protocol. A tube voltage of 120 KVp was used. The patient received the following medications prior to the cardiac CT. 0.8 mg of sublingual nitroglycerin The average heart rate at the time of acquisition was 57 bpm and regular. Image Reconstruction Transaxial images were reconstructed at 0.67 mm slide thickness. Data was reviewed interactively on an advanced workstation capable of 2 and 3-dimensional displays in all conventional reconstruction formats, including multiplanar reformations, maximum intensity projections, curved multiplanar reformations, and volume rendered reconstructions. When applicable, selected routine images describing the relevant coronary anatomy and pathology were saved and sent to PACS. Complications None Technical Quality Overall image quality was good. Coronary artery opacification was adequate. Total DLP (Dose-Length Product) is 1995.2 mGy-cm. The reported value represents the total of one or more individual components during the CT acquisition of this date and at this time, and as such, the same value may appear in more than one CT report depending on the interpreting/reporting physicians. COMPARISON None FINDINGS CT Coronary Calcium Scoring LMA (Left Main Artery) = 7 LAD (Left Anterior Descending) = 61 LCX (Left Coronary Circumflex) = 7 RCA (Right Coronary Artery) = 146 Total Calcium Score = 221 using the AJ-130 method. The observed calcium score of 221 is at 95th percentile for subjects of the same age, sex, and race/ethnicity. The interpretation of the calcium heart score is based on the following continuum*: 0 = no calcified plaque detected (risk of coronary artery disease is very low ??? less than 5%) 1-10 = calcium detected in extremely minimal levels (risk of coronary diseases is still low ??? less than 10%) 11-100 = mild levels of plaque detected with certainty (mild or minimal narrowing of heart arteries is likely) 101-400 = definite,at least moderate levels of plaque detected (relatively high risk of a heart attack within 3-5 years) >401-999 = extensive levels of plaque detected (high risk of heart attack, high levels of vascular disease are present, high likelihood of at least one significant coronary narrowing) *The calcium heart score quantifies the burden of coronary calcification/plaque in the coronary arteries. The calcium heart score is not able to evaluate the presence or burden of non-calcified (i.e. soft) plaque. There is also identifiable calcification in the aortic valve and ascending thoracic aorta. Coronary CT Angiography The coronary arterial system is right dominant. Quantitative Stenosis Grading: Left Main (LM): The left main originates normally from the left sinus of Valsalva. The LM trifurcates into the left anterior descending artery, ramus intermedius, and left circumflex artery. There is calcification in the distal LM segment, with no evidence of luminal stenosis. Left Anterior Descending (LAD) and Diagonal Branches: The LAD gives off 2 diagonal branch(es). There is mixed calcified/noncalcified plaque along the proximal and mid LAD segments, with up to 30-50% luminal stenosis. There is no evidence of LAD-myocardial bridge. Ramus-intermedius (RI): There is mixed calcified/noncalcified plaque in the proximal RI, with up to 30-50% luminal stenosis. Left Circumflex (LCX) and Obtuse Marginals (OM): The LCX gives off 1 Obtuse Marginal (OM) branch(es). There is mixed calcified/noncalcified plaque in the proximal LCx segment, without to 30-50% luminal stenosis. Right Coronary Artery (RCA): The RCA originates normally from the right sinus of Valsalva. The RCA gives off a posterior descending artery (PDA) and posterolateral (PL) branches. There is mixed calcified/noncalcified plaque in the proximal RCA segment, with up to 50-70% luminal stenosis. Non-Coronary Cardiac Findings: Analysis of the left ventricular (LV) structure and function was performed after 3-D reconstruction of the LV from axial images, with user-corrected automatic contouring for assessment of LV volumes and user-defined reconstruction from oblique planes for measurement of 3-D cardiac structure and function. -The left ventricle systolic function is normal. -There is no left atrial appendage filling defect. Two right pulmonary veins and two left pulmonary veins drain normally into the left atrium. -No pericardial thickening or calcification. -Central and branch pulmonary arteries in the [id number] are unremarkable. -Thoracic aorta within the visualized thoracic aortic-branches in the [id number] is unremarkable. Extracardiac Structures No significant extra-cardiac findings. Note, however, that this study is focused on the cardiac findings. IMPRESSION -Presence of coronary calcification with an Agatston score = 221 using the AJ-130 method. -The observed calcium score of 221 is at 95th percentile for subjects of the same age, sex, and race/ethnicity. -Multivessel atherosclerotic plaque is present, with possible evidence of significant flow-limiting atherosclerosis of the RCA segment. -CAD-RADS 3. Management recommendations per ACC/AHA guidelines*, as clinically appropriate. In the setting of presence of TID on nuclear stress testing and abnormal CCTA findings, further evaluation with invasive coronary angiography, if clinically feasible, may be suggested. *Recommendations: CAD RADS 0: Reassurance. Consider non-atherosclerotic causes of chest pain. CAD RADS 1: Consider non-atherosclerotic causes of chest pain. Consider preventive therapy and risk factor modification. CAD RADS 2: Consider non-atherosclerotic causes of chest pain. Consider preventive therapy and risk factor modification, particularly for patients with nonobstructive plaque in multiple segments. CAD RADS 3: Consider further functional testing. Consider symptom-guided anti-ischemic and preventive pharmacotherapy as well as risk factor modification per published guideline statements. CAD RADS 4A: Consider further functional testing or invasive coronary angiography with revascularization per published guideline statements. Consider symptom-guided anti-ischemic and preventive pharmacotherapy as well as risk factor modification per published guideline statements. CAD RADS 4B: Invasive coronary angiography recommended with revascularization per published guideline statements. Consider symptom-guided anti-ischemic and preventive pharmacotherapy as well as risk factor modification per published guideline statements. CAD RADS 5: Consider invasive angiography and/or viability assessment with revascularization per published guideline statements. Consider symptom-guided anti-ischemic and preventive pharmacotherapy as well as risk factor modification per published guideline statements. CRITICAL RESULT None COMMUNICATION Per this written report The coronary and cardiac findings of this CCTA were reviewed, reported, and signed by Basilio Ferrer MD (Mouse Breeder) Conclusion Electronically signed by : Neha Ferrer MD 02/21/2024 12:07:12
[2024-02-19 09:18] VITALS: BP 134/59; PULSE 56; RESP 18; TEMP 36.8; O2SAT 95
[2024-02-19 09:49] LABS: Chloride 104 mmol/L (98-107); Potassium 3.8 mmoL/L (3.5-5.1); Sodium 140 mmol/L (136-145)
[2024-02-19 09:52] LABS: Anion Gap 9.8 mEq/L (5-15); Blood Urea Nitrogen 9 mg/dl (7-17); Carbon Dioxide 30 mmol/L (22.0-30.0); Creatinine Clearance Estimated 154 mL/min (50-200); Estimated Glomerular Filt Rate 102 ml/min (>60); GFR (African American) 123 ML/MIN (>60)
[2024-02-19 09:53] LABS: Calcium 8.6 mg/dl (8.4-10.2); Glucose 114 mg/dl (74-100)
[2024-02-19 10:03] VITALS: BP 158/71; PULSE 58; O2SAT 96
[2024-02-19] MEDS: NITROGLYCERIN 0.4MG SL TABLET SL (10:03)
--- NOTE | 2024-02-19 10:03 | PC.NURSE ---
To CT room, pt lying supine on table. 158/71, Nitro 0.8mg SL given.
[2024-02-19 10:08] VITALS: BP 82/53; PULSE 57; RESP 18; O2SAT 95
--- NOTE | 2024-02-19 10:08 | PC.NURSE ---
5 minutes post nitro 82/53, pulse-54
[2024-02-19 10:15] VITALS: BP 104/47; PULSE 54; RESP 18; O2SAT 95
[2024-02-19 10:20] VITALS: BP 109/56; PULSE 62; RESP 18; O2SAT 95
[2024-02-19] MEDS: 0.9 % SODIUM CHLORIDE 50 ML VIAL IV (10:20)
--- NOTE | 2024-02-19 10:20 | PC.NURSE ---
pt to post-op, vss, no c/o.
[2024-02-19] MEDS: IOPAMIDOL-370 (76%);100ML BOTTLE 85 ML IV (10:21)
[2024-02-19] MEDS: SODIUM CHLORIDE 0.9% 10ML SYR (RAD ONLY) 10 ML IV (10:21)
--- NOTE | 2024-02-19 10:28 | PC.NURSE ---
post procedure 104/47, no c/o
== END 2024-02-19 10:30 | disposition home or self-care (01) ==
PROVIDERS: PCP Family Medicine; Visit Provider Nurse Practitioner
DX: R94.30 Abnormal result of cardiovascular function study, unspecified (principal); I34.1 Nonrheumatic mitral (valve) prolapse; I11.9 Hypertensive heart disease without heart failure; I25.118 Atherosclerotic heart disease of native coronary artery with other forms of angina pectoris; R60.0 Localized edema; R94.31 Abnormal electrocardiogram [ECG] [EKG]; Z82.49 Family history of ischemic heart disease and other diseases of the circulatory system; F17.210 Nicotine dependence, cigarettes, uncomplicated
CPT/HCPCS: 75574; 80048; Q9967

== ENCOUNTER 2024-03-01 10:16 | Day surgery (SDC) | payer MEDICARE, SELFPAY ==
[2024-03-01] VITALS (11 sets, daily range): BP systolic 92–145; BP diastolic 50–71; PULSE 52–87; RESP 18–20; TEMP 36.9; O2SAT 90–95; BMI 39.3
--- NOTE | 2024-03-01 07:24 | IR_ITS ---
APPROVED REPORT Patient Location: Outpatient PROCEDURES Left heart catheterization Left ventriculogram Selective coronary angiogram INDICATION Abnormal stress test, Angina pectoris, Coronary artery disease, Abnormal CCTA Informed consent was obtained prior to the procedure. COMPLICATIONS NONE Estimated Blood Loss: LESS THAN 10 ML TECHNIQUE One percent lidocaine used to anesthetize the right anterior aspect of the wrist. The right radial artery was accessed via the Seldinger technique. A 6 Ecuadorean sheath was placed in the right radial artery. 2.5 mg of Verapamil, 800 mcg of nitroglycerin, 1mg Lidocaine and 5000 U Heparin were given through the arterial sheath. The papa catheter was also used to perform left heart catheterization, left ventriculogram and selective coronary angiogram. At the end of the procedure the sheath was removed good hemostasis was achieved using Traclet band, patient was transferred to the postop holding area in stable condition. ANGIOGRAPHIC RESULTS The left main artery Normal The left anterior descending artery Proximally normal with mid vessel 10 to 20% stenosis with additional distal 30% stenosis as the LAD approaches the apex The circumflex artery Nondominant with proximal and mid vessel 10 to 20% luminal regularities The right coronary artery Dominant proximal 20% stenosis mid vessel 20 to 30% stenosis followed by mid vessel eccentric 30% stenosis with distal eccentric 30% stenosis The PALOMO ventriculogram reveals Normal 65% The left ventricular end-diastolic pressure 10 mmHg IMPRESSION Mild LAD and circumflex artery disease Mild to moderate disease in the mid dominant right coronary Normal ejection fraction Normal left ventricular end-diastolic pressure PLAN 1. Risk factor modification 2. LDL less than 55 achieved high intensity statin 3. Medical management Electronically signed by : Marcus Wright MD 03/01/2024 13:35:27
[2024-03-01 10:47] LABS: Basophils # 0.1 K/mm3 (0-0.2); Basophils % 0.9 % (0.1-2.0); Eosinophils # 0.2 K/mm3 (0.0-0.4); Eosinophils % 2.7 % (0.1-12.0); Hematocrit 46.6 % (37.0-47.0); Hemoglobin 15.2 g/dL (12.2-16.2); Lymphocytes # 3.1 K/mm3 (0.7-4.5); Lymphocytes % 34.7 % (10-50); Mean Corpuscular HGB Conc 32.7 g/dL (31.8-35.4); Mean Corpuscular Volume 97.9 fl (81-99); Mean Platelet Volume 7.5 fl (7.4-10.4); Monocytes # 0.7 K/mm3 (0.1-1.0); Monocytes % 7.6 % (1.7-9.3); Neutrophils # 4.8 K/mm3 (1.8-7.8); Platelet Count 245 K/mm3 (142-424); Red Blood Count 4.76 M/mm3 (4.20-5.40); Red Cell Distribution Width 13.8 % (11.5-17.5); White Blood Count 8.8 K/mm3 (4.8-10.8)
[2024-03-01 10:53] LABS: Chloride 105 mmol/L (98-107)
[2024-03-01 10:54] LABS: Potassium 4.4 mmoL/L (3.5-5.1); Sodium 137 mmol/L (136-145)
[2024-03-01 10:56] LABS: Blood Urea Nitrogen 10 mg/dl (7-17); Creatinine Clearance Estimated 154 mL/min (50-200); Estimated Glomerular Filt Rate 102 ml/min (>60); GFR (African American) 123 ML/MIN (>60)
[2024-03-01 10:57] LABS: Anion Gap 7.4 mEq/L (5-15); Calcium 8.6 mg/dl (8.4-10.2); Carbon Dioxide 29 mmol/L (22.0-30.0); Glucose 104 mg/dl (74-100)
[2024-03-01] MEDS: MIDAZOLAM HCL 1MG/1ML 5ML VIAL 1 MG IV (13:21)
[2024-03-01] MEDS: HEPARIN 1,000 UNITS/ML 10ML VIAL (CATH LAB) 10000 UNIT IV (13:21)
[2024-03-01] MEDS: LIDOCAINE 1% 10ML MDV 20 ML IJ (13:21)
[2024-03-01] MEDS: FENTANYL 100MCG/2ML VIAL 50 MCG IV (13:21)
[2024-03-01] MEDS: diphenhydrAMINE 50MG/ML VIAL 50 MG IV (13:21)
[2024-03-01] MEDS: NITROGLYCERIN 800MCG/8ML SYR (CATH LAB) 800 MCG IA (13:22)
[2024-03-01] MEDS: 0.9 % SODIUM CHLORIDE 500 ML 25 ML IV (13:22)
[2024-03-01] MEDS: HEPARIN 1,000 UNITS/500ML NS (CATH LAB) 3000 UNIT IV (13:22)
[2024-03-01] MEDS: IOPAMIDOL-370 (76%);100ML BOTTLE 50 ML IV (13:48)
== END 2024-03-01 16:07 | disposition home or self-care (01) ==
LOC: CATHLAB 10:17
PROVIDERS: PCP Family Medicine; Visit Provider Internal Medicine
DX: R93.1 Abnormal findings on diagnostic imaging of heart and coronary circulation (principal); R06.00 Dyspnea, unspecified; G35 Multiple sclerosis; I10 Essential (primary) hypertension; I34.1 Nonrheumatic mitral (valve) prolapse; I25.118 Atherosclerotic heart disease of native coronary artery with other forms of angina pectoris; Z82.49 Family history of ischemic heart disease and other diseases of the circulatory system; F17.210 Nicotine dependence, cigarettes, uncomplicated; E78.2 Mixed hyperlipidemia; R94.31 Abnormal electrocardiogram [ECG] [EKG]; Z79.899 Other long term (current) drug therapy
CPT/HCPCS: 36415; 80048; 85025; 93458; 99152; C1725; C1769; J1200; J1644; J2250; J3010; Q9967

== ENCOUNTER 2024-03-07 14:03 | Outpatient (CLI) | payer MEDICARE, SELFPAY ==
--- NOTE | 2024-03-07 14:07 | CA_ITS ---
FINAL REPORT TECHNIQUE: Graded compression, spectral analysis and ultrasound images of the venous system of the right upper extremity were obtained. CLINICAL HISTORY: r/o DVT, pain in RUE,S/P HEART CATH 03/01/24,PT ON ASA FINDINGS: The jugular vein, subclavian vein, axillary vein, brachial vein, cephalic vein and basilic venous system are fully compressible and demonstrate no evidence of thrombosis. IMPRESSION: No evidence of thrombosis of the venous system of the right upper extremity. Reviewed, Interpreted and Dictated by Del Chan MD Transcribed by Christine Robert Authenticated and [facility]
--- NOTE | 2024-03-07 14:07 | CA_ITS ---
FINAL REPORT CLINICAL HISTORY: S/P HEART CATH WITH RIGHT WRIST ACCESS 03/01/24,PAIN IN RUE/WRIST FINDINGS: Limited spectral and Doppler waveform evaluations of the right wrist was performed. Spectral analysis was performed. There is no evidence of pseudoaneurysm. The radial artery is patent. IMPRESSION: No evidence of pseudoaneurysm. Reviewed, Interpreted and Dictated by Del Chan MD Transcribed by Christine Robert Authenticated and . [facility]
== END 2024-03-07 23:59 | disposition home or self-care (01) ==
LOC: RT 14:05
PROVIDERS: PCP Family Medicine; Visit Provider Nurse Practitioner
DX: I77.0 Arteriovenous fistula, acquired (principal); M79.601 Pain in right arm
CPT/HCPCS: 93931; 93971

== ENCOUNTER → 2024-04-16 19:47 | Outpatient (CLI) | payer MEDICARE, SELFPAY | LOC: SL 19:50 | PROVIDERS: PCP Family Medicine; Visit Provider Family Medicine | DX: G47.33 Obstructive sleep apnea (adult) (pediatric) (principal); I10 Essential (primary) hypertension; R06.83 Snoring; E66.01 Morbid (severe) obesity due to excess calories | CPT/HCPCS: 95810 ==

== ENCOUNTER 2024-06-11 11:45 | Outpatient (CLI) | payer MEDICARE, SELFPAY ==
--- NOTE | 2024-06-11 11:48 | CT_ITS ---
FINAL REPORT TECHNIQUE: Thin section axial images were obtained from the thoracic inlet through the upper abdomen after intravenous contrast injection. Reconstruction images were obtained from the axial data. Exam was performed using dose reduction technique. This study was performed with techniques to keep radiation doses as low as reasonably achievable (ALARA). Individualized dose reduction techniques using automated exposure control or adjustment of mA and/or kV according to the patient's size were employed. CLINICAL HISTORY: NODULE nodule seen on prior ct chest without. compare growth COMPARISON: 10/12/2023 FINDINGS: There is no axillary lymphadenopathy. There are mildly prominent AP window nodes, which are stable. The index node measures 18 mm, was previously 17, essentially stable. No hilar adenopathy is noted. There is no pleural or pericardial effusion. Changes of emphysema are present. There is a 4 mm left upper lobe nodule, anterior to the fissure, unchanged in appearance. There is a stable 4 mm left upper lobe subpleural nodule best seen on image #30. There are subpleural fibrotic changes and bibasilar predominance of ground glass opacities, stable. There is a 6 mm right upper lobe nodule best seen on image #20, also stable. Limited evaluation of the upper abdomen is without acute abnormality. No acute osseous abnormality. IMPRESSION: Multiple small nodules, and subpleural fibrotic changes and predominantly bibasilar ground glass opacities, stable since the prior exam. No new masses or nodules are identified. These findings have been stable for 8 months, and would recommend follow-up chest CT in 12 to 18 months for further evaluation. Reviewed, Interpreted and Dictated by Anabel Barillas MD Transcribed by Sophia Welch Authenticated and [facility]
[2024-06-11 12:25] LABS: Blood Urea Nitrogen 9 mg/dl (7-17); Estimated Glomerular Filt Rate 102 ml/min (>60); GFR (African American) 123 ML/MIN (>60)
[2024-06-11] MEDS: IOPAMIDOL-370 (76%);100ML BOTTLE 75 ML IV (12:48)
[2024-06-11] MEDS: SODIUM CHLORIDE 0.9% 10ML SYR (RAD ONLY) 10 ML IV (12:48)
== END 2024-06-11 23:59 | disposition home or self-care (01) ==
LOC: RAD 11:46
PROVIDERS: PCP Family Medicine; Visit Provider Family Medicine
DX: R91.1 Solitary pulmonary nodule (principal)
CPT/HCPCS: 36415; 71260; 82565; 84520; Q9967

== ENCOUNTER 2024-09-09 16:11 | Outpatient (CLI) | payer MEDICARE, SELFPAY ==
[2024-09-09 16:18] LABS: Anti-Centromere B Antibodies ND; Anti-DNA (DS) Ab Qn ND; Anti-Jo-1 ND; Antichromatin Antibodies ND; Antiscleroderma-70 Antibodies ND; RNP Antibodies ND; Sjogren's Anti-SS-A ND; Sjogren's Anti-SS-B ND
[2024-09-10 12:21] LABS: Antinuclear Antibodies (ANA) Negative (Negative)
[2024-09-14 00:08] LABS: Rheumatoid Factor IGM < 7 U (<7)
== END 2024-09-09 23:59 | disposition home or self-care (01) ==
LOC: LAB 16:12
PROVIDERS: PCP Family Medicine; Visit Provider Internal Medicine Pulmonary Disease
DX: J84.9 Interstitial pulmonary disease, unspecified (principal); R06.09 Other forms of dyspnea; F17.210 Nicotine dependence, cigarettes, uncomplicated
CPT/HCPCS: 36415; 86038; 86140; 86225; 86235; 86431

== ENCOUNTER 2024-11-12 11:53 | Outpatient (CLI) | payer MEDICARE, SELFPAY ==
[2024-11-12 13:15] VITALS: PULSE 58; PULSE 60
[2024-11-12] MEDS: ALBUTEROL 0.083% 2.5 MG/3 ML NEB IH (13:15)
== END 2024-11-12 23:59 | disposition home or self-care (01) ==
LOC: RT 11:54
PROVIDERS: PCP Family Medicine; Visit Provider Internal Medicine Pulmonary Disease
DX: R06.09 Other forms of dyspnea (principal)
CPT/HCPCS: 94060; 94618; 94640; 94726; 94729; J7613

== ENCOUNTER 2025-02-03 10:34 | Outpatient (CLI) | payer MEDICARE, SELFPAY ==
--- OUTSIDE RECORDS SUMMARY | 2024-02-12 06:00 | XMS_ITS ---
Author Organization [facility] Address [address] [place] [id number] Care Team Providers Care Industrial Services Worker Name Role Phone Martinez Norton Primary Care Provider [phone] Allergies Allergen (clinical drug ingredient) Drug/Non Drug Allergy documented on EMR Reaction Allergy Type Onset Date Status Lortab makes her sick, stomach Drug Allergy Active Results Component Value Reference Range Notes P-Basic Metabolic Panel (BMP ) Reviewed date:02/13/2024 10:06:11 AM Interpretation:gluc 130 Performing Lab: Notes/Report: CLIA: [id number] Parmjit Martinez MD, Section Crews Activities Clerk [address] [place] [address] [facility] [place] [address] Test performed by [facility] Sodium 139 135-145 mmol/L Potassium 5.0 3.5-5.3 mmol/L Chloride 103 97-108 mmol/L CO2 30 22-32 mmol/L Glucose 130 65-99 mg/dL BUN 8 8-23 mg/dL Creatinine 0.58 0.50-1.00 mg/dL Calcium 9.2 8.6-10.4 mg/dL eGFR by Creatinine 103 >59 mL/min/1.73m2 P-Magnesium Reviewed date:02/13/2024 10:06:11 AM Interpretation: Normal Performing Lab: Notes/Report: Test performed by [facility] [address] [place] [address] [address], [place] [address] Parmjit Martinez MD, Section Crews Activities Clerk CLIA: [id number] Magnesium 2.0 1.6-2.4 mg/dL P-Phosphorus Reviewed date:02/13/2024 10:06:12 AM Interpretation: Normal Performing Lab: Notes/Report: Test performed by [facility], [address] , [address], [place] [address] Parmjit Martinez MD, Section Crews Activities Clerk CLIA: [id number] Phosphorus 3.8 2.5-4.5 mg/dL REASON FOR VISIT 4 week f/u Medications Medication SIG (Take, Route, Frequency, Duration) Notes Start Date End Date Status Estradiol 0.1 MG/GM as directed Vaginal Active Vitamin D3 50 MCG (1999) 2 cap(s) ora lly once a day OTC 03/06/2019 Active Lipitor 20 MG 1 tab(s) orally once a day; Duration: 90 days Active Albuterol Sulfate HFA 108 (9 0 Base) MCG/ACT 2 puff(s) inhaled 4 times a day as needed Active Mupirocin 2 % 1 application Externally Twice a day 02/12/2024 Active Bisoprolol-hydroCHLOROthiazi de 5-6.25 MG 1 tab(s) orally once a day Active hydroCHLOROthiazide 12.5 MG 1 tablet in the morning Orally Once a day Active Vital Signs Blood pressure systolic 124 mm Hg 02/12/20 24 Blood pressure diastolic 80 mm Hg 024 Heart Rate 98 /min 02/12/2024 Height 62 in 02/12/2024 Weight 216 lbs 02/12/2024 BMI 39.50 kg/m2 02/12/2024 Encounters Encounter Location Date Provider Diagnosis [facility] [address] [place], [place] [id number] 02/12/2024 Martinez Norton Essential hypertensi on I10 ; Snoring R06.83 ; Peripheral edema R60.0 ; Chronic obstructive pulmonary disease, unspecified COPD type J44.9 and Muscle cramps R25.2 Assessments Encounter Date Diagnosis (ICD Code) Assessment Notes Treatment Notes Treatment Clinical Notes Section Notes 02/12/2024 Essential hypertension (ICD-10 - I10) 02/12/2024 Snoring (ICD-10 - R06.83) 02/12/2024 Peripheral edema (ICD-10 - R60.0) 02/12/2024 Chronic obstructive pulmonary disease, unspecified COPD type (ICD-10 - J44.9) 02/12/2024 Muscle cramps (ICD-10 - R25.2) Plan Of Treatment Medication Medication Name Sig Start Date Stop Date Notes Mupirocin 2 % 1 application Research Instrumentation Technician ally Twice a day 02/12/2024 Bisoprolol-hydroCHLOROthiazi de 5-6.25 MG 1 tab(s) orally once a day hydroCHLOROthiazide 12.5 MG 1 tablet in the morning Orally Once a day Next Appt Details Follow Up: 5 Months, Reason: Provider Name:Martinez Grimaldo ry, 05/28/2025 09:15:00 AM, [address], [address], [place], [place], [id number], Progress Notes * Celeste NULL JDOB: [birth year] (59 yo F)Acc No.[id number]:02/12/2024 Patient: Celeste ALMAZAN Provider: Aixa Norton M.D. :1965 A ge:58 Y S ex:Female Date:02/12/2024 Address:[address] [place] [address], [place], [id number] Subjective: * Chief Complaints: * 1 . 4 week f/u. * HPI: H PI: 58 year old female presents with c/o Here for follow up on:?01/30/2024 Nuclear Stress test and Echo results. Pt states she has CTA scheduled on 02/19/2024.? * ROS: C ONSTITUTIONAL: Positive for p atient has not had the sleep study because she does not have a credit card to reserve the device. D ERMATOLOGY: no R lai. n o H rosaura. G ASTROENTEROLOGY: no N ausea. n o V omiting. U ROLOGY: no D ifficulty urinating. n o B lood in urine. * Medical History: M ultiple Sclerosis - followed by Dr. Martinez, Mitral Valve Prolapse, Diverticulosis, Bilateral Carpal Tunne, Hidradenitis Suppurativa, Hypertension, normal left heart cath September 2014, Kidney Stones, Osteopenia, Impaired Fasting Glucose, CT scan of sinuses negative 12/25/2019, 30 Year Smoking History as of 2021, RT Upper Lobe Lung Nodule, 6 mm, September 2023, needs repeat CT in 6 to 12 months. 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 * Hospitalization/Major Diagno stic Procedure: M ultiple Sclerosis Dx 1999, Chest Pain , Gallbladder Attack- [facility] 07/20/2011, Back Spasms- [facility] ER 03/2014, Chest Pain- [facility] 09/29-, Abdominal Pain- [facility] ER 07/30/2018, Abdominal Pain- [facility] 06/2019, Severe Nose Bleed- 12/15/2019. * Family History: F ather: , lung cancer. M other: , diabetes, COPD, epilepsy. S iblings: one brother from heart attack and other brother heart trouble, cancer. C chano: son . 3 brother(s) , 2 sister(s) . 1 son(s) , 2 daughter(s) . . * Social History: C URRENT TOBACCO USE S moking Status: Patient does smoke, packs per day: 0.5. C affeine: yes, frequency:coffee, pop. Past smoking status: yes, Smoking status: Patient does smoke, Packs per day: 0.5, Smoking preference: cigarettes. Alcohol: Yes, Type: , Frequency: ,Years: , Determination:, very occasional. * Medications: T aking Estradiol 0.1 MG/GM Cream as directed Vaginal , Taking Vitamin D3 50 MCG (2000 UT) Capsule 2 cap(s) orally once a day , Notes to Pharmacist: OTC, Taking Lipitor 20 MG Tablet 1 tab(s) orally once a day , Taking Albuterol Sulfate HFA 108 (90 Base) MCG/ACT Aerosol Solution 2 puff(s) inhaled 4 times a day as needed , Taking hydroCHLOROthiazide 12.5 MG Tablet 1 tablet in the morning Orally Once a day , Taking Bisoprolol-hydroCHLOROthiazide 5-6.25 MG Tablet 1 tab(s) orally once a day , Medication List reviewed and reconciled with the patient * Allergies: L ortab: makes her sick, stomach. Objective: * Vitals: W t:216, Temp:97.8, BP:124/80, HR:98, O2 Sat:95% on RA, Nurse:vivienne, Ht: 62, BMI:39.50. * Examination: G eneral Examination: General Appearance: N AD. H eart: R SR. L ungs:?clear to auscultation. E xtremities: b ilateral trace pitting leg edema. ? Assessment: * Assessment: 1. E ssential hypertension - I10 (Primary) 2 . S noring - R06.83 3 . P eripheral edema - R60.0 4 . C hronic obstructive pulmonary disease, unspecified COPD type - J44.9 5 . M uscle cramps - R25.2 Plan: * Treatment: Value Reference Range B UN 8 8-23 - mg/dL * C alcium 9.2 8.6-10.4 - mg/dL * C hloride 103 97-108 - mmol/L * C O2 30 22-32 - mmol/L * C reatinine 0.58 0.50-1.00 - mg/dL * G lucose 130 H 65-99 - mg/dL * P otassium 5.0 3.5-5.3 - mmol/L * S odium 139 135-145 - mmol/L * e GFR by Creatinine 103 >59 - mL/min/1.73m2 * Margarito Ornelasia 02/13/2024 10:06 :03 AM >See phone encounter 2.?Peripheral edema?LAB: P-Basic Metabolic Panel (BMP) (Collection Date & Time - 02/12/2024 09:30 AM)?gluc 130* Value Reference Range B UN 8 8-23 - mg/dL * C alcium 9.2 8.6-10.4 - mg/dL * C hloride 103 97-108 - mmol/L * C O2 30 22-32 - mmol/L * C reatinine 0.58 0.50-1.00 - mg/dL * G lucose 130 H 65-99 - mg/dL * P otassium 5.0 3.5-5.3 - mmol/L * S odium 139 135-145 - mmol/L * e GFR by Creatinine 103 >59 - mL/min/1.73m2 * Ioana Ornelas 02/13/2024 10:06 :03 AM >See phone encounter 3.?Muscle cramps?LAB: P-Magnesium (Collection Date & Time - 02/12/2024 09:30 AM)?Normal* Value Reference Range M agnesium 2.0 1.6-2.4 - mg/dL * Ioana Ornelas 02/13/2024 10:06 :03 AM >See phone encounter ?LAB: P-Phosphorus (Collection Date & Time - 02/12/2024 09:30 AM)?Normal* Value Reference Range P hosphorus 3.8 2.5-4.5 - mg/dL * Ioana Ornelas 02/13/2024 10:06 :03 AM >See phone encounter 4.?Others? Start Mupirocin Ointment, 2 %, 1 application, Externally, Twice a day, 22 grams, Refills 0.? * Procedure Codes: G 2211 Complex e/[place], [address] [place] * Follow Up: 5 Months * Images: Billing Information: * Visit Code: 24487 Office Visit, Est Pt., Level 4. * Procedure Codes: G2211 Complex e/[place]. [address] [place]. * Electronic signature of Janessa Norton MD on 02/03/2025 at 10:41 AM EDT Sign off status: Pending * Provider: Aixa Norton M.D. Date: 0 02/12/2024 Generated for Gaby olson/Kannan/eTalmasmitting on: 0 02/03/2025 10:41 AM EDT History and Physical Notes * HPI (History of Present Illness) Category Sub-Category Detail Notes Category Not es HPI Here for follow up on: Nuclear Stress test and Echo results. Pt states she has CTA scheduled on 02/19/2024 Examination Category Sub-Category Detail Notes Category Not es General Examination Heart: RSR Lungs: clear to auscultatio n Extremities: bilateral trace becki ing leg edema General Appearance: NAD
--- OUTSIDE RECORDS SUMMARY | 2024-05-29 05:15 | XMS_ITS ---
Author Organization [facility] Address [address] [place] [id number] Care Team Providers Care Claim Processor Name Role Phone Martinez Norton Primary Care Provider Allergies Allergen (clinical drug ingredient) Drug/Non Drug Allergy documented on EMR Reaction Allergy Type Onset Date Status Lortab makes her sick, stomach Drug Allergy Active Results Component Value Reference Range Notes Glucose (In-House) Reviewed date:05/30/2024 08:18:18 AM Interpretation:148 Performing Lab: Notes/Report: 148 blood glucose 148 74 - 106 mg/dL Glycohemoglobin A1c (in hous e) Reviewed date:05/30/2024 08:18:18 AM Interpretation:5.6 Performing Lab: Notes/Report: 5.6 glycohemoglobin 5.6% 5 - 6.5 % P-Basic Metabolic Panel (BMP ) Reviewed date:05/30/2024 08:18:18 AM Interpretation:gluc 123 Performing Lab: Notes/Report: Test performed by [facility] [facility] , [address], [place] [address] Parmjit Martinez MD, Head Inspector And [employer] CLIA: [id number] Sodium 140 135-145 mmol/L Potassium 4.8 3.5-5.3 mmol/L Chloride 102 97-108 mmol/L CO2 28 22-32 mmol/L Glucose 123 65-99 mg/dL BUN 10 8-23 mg/dL Creatinine 0.53 0.50-1.00 mg/dL Calcium 8.9 8.6-10.4 mg/dL eGFR by Creatinine 105 >59 mL/min/1.73m2 P-Vitamin D 25-Hydroxy Reviewed date:05/30/2024 08:18:18 AM Interpretation:47.7 Performing Lab: Notes/Report: Test performed by [facility] [address] [place] [address] , [address], [place] [address] Parmjit Martinez MD, Head Inspector And Center [employer] CLIA: [id number] Vitamin D 25-Hydroxy 47.7 30.0-100.0 ng/mL Interpretation of Vitamin D 25 [place]: < 20 ng/mL - Deficiency 20 - 29 ng/mL - Insufficiency 30 - 100 ng/mL - Sufficiency > 100 ng/mL - Super-therapeutic- toxicity may occur above this level. Clinical correlation required. CT Scan : Chest with IV cont rast Reviewed date:06/17/2024 09:22:13 AM Interpretation:stable, nothing new, f/u CT in 12-18months Performing Lab: Notes/Report: stable, nothing new, f/u CT in 12-18months REASON FOR VISIT 6 month checkup Medications Medication SIG (Take, Route, Frequency, Duration) Notes Start Date End Date Status Estradiol 0.1 MG/GM as directed Vaginal Active Albuterol Sulfate HFA 108 (9 0 Base) MCG/ACT 2 puff(s) inhaled 4 times a day as needed Active Vitamin D3 50 MCG (2000 UT) 2 cap(s) ora lly once a day OTC 03/06/2019 Active Lipitor 20 MG 1 tab(s) orally once a day; Duration: 90 days Active Aspirin 81 81 MG 1 tablet Orally Once a day; Duration: 30 day(s) Active Oxygen - 2 l/min per nasal cannula when sleeping 05/29/2024 Active Bisoprolol-hydroCHLOROthiazi de 5-6.25 MG 1 tab(s) orally once a day; Duration: 90 days Active hydroCHLOROthiazide 12.5 MG 1 tablet in the morning Orally Once a day Active Immunizations Vaccine Route Administration Date Status Comme nts Fluzone Quad (6months&older) IM Intramuscular 05/29/2024 Administered Problems Problem Type SNOMED Code ICD Code Onset Dates Problem Status W/U Status Risk Notes Problem Idiopathic sleep related non-obstructive alveolar hypoventilation (703865120) Nocturnal hypoxia (G47.34) Active confirmed Problem Solitary nodule of lung (546681424) Lung nodule (R91.1) Active confirmed Vital Signs Blood pressure systolic 122 mm Hg 05/29/20 24 Blood pressure diastolic 78 mm Hg 024 Heart Rate 90 /min 05/29/2024 Height 62 in 05/29/2024 Weight 220 lbs 05/29/2024 BMI 40.23 kg/m2 05/29/2024 Encounters Encounter Location Date Provider Diagnosis [facility] [address] [facility] [address] [facility] [address] [place] [id number] 05/29/2024 Martinez Norton Essential hypertensi on I10 ; IFG (impaired fasting glucose) R73.01 ; Vitamin D deficiency E55.9 ; Nocturnal hypoxia G47.34 ; Lung nodule R91.1 and Encounter for immunization Z23 Assessments Encounter Date Diagnosis (ICD Code) Assessment Notes Treatment Notes Treatment Clinical Notes Section Notes 05/29/2024 Essential hypertension (ICD-10 - I10) 05/29/2024 IFG (impaired fasting glucose) (ICD-10 - R73.01) 05/29/2024 Vitamin D deficiency (ICD-10 - E55.9) 05/29/2024 Nocturnal hypoxia (ICD-10 - G47.34) After reviewing the pulse oximetry report, I'd like to start oxygen 2 L per minute when sleeping. 05/29/2024 Lung nodule (ICD-10 - R91.1) 05/29/2024 Encounter for immunization (ICD-10 - Z23) Plan Of Treatment Medication Medication Name Sig Start Date Stop Date Notes Oxygen - 2 l/min per nasal ca nnula when sleeping 05/29/2024 Bisoprolol-hydroCHLOROthiazi de 5-6.25 MG 1 tab(s) orally once a day; Duration: 90 days Treatment Notes Assessment Notes Nocturnal hypoxia After reviewing the pulse oximetry report, I'd like to start oxygen 2 L per minute when sleeping. Next Appt Details Follow Up: 6 Months, Reason: Provider Name:Martinez june, 05/28/2025 09:15:00 AM, [address] [facility] [address] [facility], [address], [place], [id number], Progress Notes * Celeste SERRATO JDOB: [birth year] (59 yo F)Acc No.[id number]:05/29/2024 Progress Notes Patient: Celeste ALMAZAN Provider: Aixa Norton M.D. :1965 A ge:59 Y S ex:Female Date:05/29/2024 Address:[address], [id number] Subjective: * Chief Complaints: * 1 . 6 month checkup. * HPI: C ardiology: 59 year old female presents with c/o Blood Pressure Elevated?Pt here for 6 mo f/u on hypertension, states she is doing well and does not have any concerns.? c/o Hyperlipidemia P t is fasting today. * ROS: D ERMATOLOGY: no R lai. n o H rosaura. G ASTROENTEROLOGY: no N ausea. n o V omiting. U ROLOGY: no D ifficulty urinating. n o B lood in urine. * Medical History: Glynn jeffersonle Sclerosis - followed by Dr. Martinez, Mitral [...] Hernia 07/2018. * Hospitalization/Major Diagno stic Procedure: Glynn ultiple Sclerosis Dx 1999, Chest Pain , Gallbladder Attack- [facility] 07/20/2011, Back Spasms- [facility] ER 03/2014, Chest Pain- [facility] 09/29-, Abdominal Pain- [facility] ER 07/30/2018, Abdominal Pain- [facility] 06/2019, Severe Nose Bleed- 12/15/2019. * Family [...] Determination:, very occasional. * Medications: T aking Aspirin 81 81 MG Tablet Delayed Release 1 tablet Orally Once a day , Taking Estradiol 0.1 MG/GM Cream as directed Vaginal , Taking Vitamin D3 50 MCG (2000 UT) Capsule 2 cap(s) orally once a day , Notes to Pharmacist: OTC, Taking Lipitor 20 MG Tablet 1 tab(s) orally once a day , Taking Albuterol Sulfate HFA 108 (90 Base) MCG/ACT Aerosol Solution 2 puff(s) inhaled 4 times a day as needed , Taking Bisoprolol-hydroCHLOROthiazide 5-6.25 MG Tablet 1 tab(s) orally once a day , Taking hydroCHLOROthiazide 12.5 MG Tablet 1 tablet in the morning Orally Once a day , Discontinued Mupirocin 2 % Ointment 1 application Externally Twice a day , Medication List reviewed and reconciled with the patient * Allergies: L ortab: makes her sick, stomach. Objective: * Vitals: W t:220, Temp:98.0, BP:122/78, HR:90, O2 Sat:96% on RA, Nurse:vivienne, Ht: 62, BMI:40.23. * Examination: G eneral Examination: General Appearance: N AD. H eart: R SR. L ungs:?clear to auscultation. P eripheral pulses: normal (2+) bilaterally. E xtremities: n o leg edema. Assessment: * Assessment: 1. E ssential hypertension - I10 (Primary) 2 . I FG (impaired fasting glucose) - R73.01 3 . V itamin D deficiency - E55.9 4 . N octurnal hypoxia - G47.34 5 . L adithya nodule - R91.1 6 . E ncounter for immunization - Z23 Plan: * Treatment: Value Reference Range B UN 10 8-23 - mg/dL * C alcium 8.9 8.6-10.4 - mg/dL * C hloride 102 97-108 - mmol/L * C O2 28 22-32 - mmol/L * C reatinine 0.53 0.50-1.00 - mg/dL * G lucose 123 H 65-99 - mg/dL * P otassium 4.8 3.5-5.3 - mmol/L * S odium 140 135-145 - mmol/L * e GFR by Creatinine 105 >59 - mL/min/1.73m2 * Parul Garcia 05/30/2024 8:1 8:04 AM >See phone encounter 2.?IFG (impaired fasting glucose)?LAB: Glucose (In-House) (Collection Date & Time - 05/29/2024)?148* Value Reference Range b lood glucose 148 74 - 106 mg/dL * Kimberley Chirinos 05/29/2024 10:24: 50 AM > Parul Garcia 05/30/2024 8:18:04 AM >See phone encounter ?LAB: Glycohemoglobin A1c (in house) (Collection Date & Time - 05/29/2024)? 5.6* Value Reference Range g lycohemoglobin 5.6% 5 - 6.5 % * Kimberley Chirinos 05/29/2024 10:25: 12 AM > Parul Garcia 05/30/2024 8:18:04 AM >See phone encounter 3.?Vitamin D deficiency?LAB: P-Vitamin D 25-Hydroxy (Collection Date & Time - 05/29/2024 08:35 AM)? 47.7* Value Reference Range V itamin D 25-Hydroxy 47.7 30.0-100.0 - ng/mL * Parul Garcia 05/30/2024 8:1 8:04 AM >See phone encounter 4.?Nocturnal hypoxia? Start Oxygen -, -, 2 l/min, per nasal cannula, when sleeping, 1, Refills 0.?? Notes: After reviewing the pulse oximetry report, I'd like to start oxygen 2 L per minute when sleeping.??5.?Lung nodule?Imaging: CT Scan : Chest with IV contrast (Performed Date - 06/11/2024)? stable, nothing new, f/u CT in 12-18months* Ilana Wilcox 05/29/2024 9:51 :50 AM > no auth required; CPT code 65872; faxed to [facility] MaliniIoana Ornelas 06/17/2024 9:22:07 AM > , See phone encounter * Immunizations: Fluzone Quad (6months&older) : 0.5 mL (Route: Intramuscular) given by Kimberley Chirinos on Left Deltoid (Encounter for immunization) * Procedure Codes: [address] [place], [address] GLUCOSE TEST, [address]498 GLYCATED HEMOGLOBIN TEST, Modifiers: QW * Follow Up: 6 Months * Images: Billing Information: * Visit Code: 82713 Office Visit, Est Pt., Level 4. * Procedure Codes: [address] [place]. [address] GLUCOSE TEST. [address]237 GLYCATED HEMOGLOBIN TEST. Modifiers: QW * Electronic signature of Janessa Norton MD on 02/03/2025 at 10:41 AM EDT Sign off status: Pending * Provider: Aixa Norton M.D. Date: 1 07/29/2023 Generated for Gaby olson/Kannan/Romeoitting on: 0 02/03/2025 10:41 AM EDT History and Physical Notes * HPI (History of Present Illness) Category Sub-Category Detail Notes Category Not es Cardiology Blood Pressure Elevated Pt here for 6 mo f/u on hypertension, states she is doing well and does not have any concerns Hyperlipidemia Pt is fasting today Examination Category Sub-Category Detail Notes Category Not es General Examination Heart: RSR Lungs: clear to auscultatio n Extremities: no leg edema General Appearance: NAD Peripheral pulses: normal (2+) bilatera lly
--- OUTSIDE RECORDS SUMMARY | 2024-11-27 05:15 | XMS_ITS ---
Author Organization [facility] Address [address] [place] [id number] Care Team Providers Care Web Marketing Coordinator Name Role Phone Martinez Norton Primary Care Provider Allergies Allergen (clinical drug ingredient) Drug/Non Drug Allergy documented on EMR Reaction Allergy Type Onset Date Status Lortab makes her sick, stomach Drug Allergy Active Results Component Value Reference Range Notes P-Comprehensive Metabolic Pa narayan (CMP) Reviewed date:11/28/2024 12:11:04 PM Interpretation:BUN 6 Performing Lab: Notes/Report: Test performed by [facility] [address] [place] [address] , [address], [place] [address] Parmjit Martinez MD, Personal Injury Law Specialist CLIA: [id number] Sodium 141 135-145 mmol/L Potassium 4.7 3.5-5.3 mmol/L Chloride 100 97-108 mmol/L CO2 31 22-32 mmol/L Glucose 101 65-99 mg/dL BUN 6 8-23 mg/dL Creatinine 0.58 0.50-1.00 mg/dL Calcium 9.2 8.6-10.4 mg/dL eGFR by Creatinine 103 >59 mL/min/1.73m2 Protein 7.4 6.0-8.3 g/dL Albumin 4.3 3.5-5.3 g/dL Alkaline Phosphatase 90 35-121 IU/L ALT (SGPT) 14 <5-47 IU/L AST (SGOT) 19 <5-40 IU/L Bilirubin, Total 0.4 <0.2-1.2 mg/dL A/G Ratio 1.4 1.1-2.5 P-Lipid Panel Reviewed date:11/28/2024 12:11:04 PM Interpretation:trigs 166 Performing Lab: Notes/Report: Test performed by [facility] [address] [place] [address] [address] , [place] [address] Parmjit Martniez MD, Personal Injury Law Specialist CLIA: [id number] Cholesterol 109 <200 mg/dL Triglycerides 166 <150 mg/dL HDL Cholesterol 40 >39 mg/dL Cholesterol / HDL Ratio 2.73 0.00-4.44 Ratio Non-HDL Cholesterol 69 <130 mg/dL LDL Cholesterol (Calculation) 36 <130 mg/dL LDL Cholesterol Levels* Less than 100 mg/dL Optimal 100 to 129 mg/dL Near Optimal/ Above Optimal 130 to 159 mg/dL Borderline High 160 to 189 mg/dL High 190 mg/dL and above Very High * Categories as recommended by the 2004 ATPIII guidelines LDL/HDL Ratio 0.9 <3.3 Ratio LDL Cholesterol Patient History Test Date: 11/27/2023 LDL Results: 32 Units: mg/dL % Change: - Test Date: 11/27/2024 LDL Results: 36 Units: mg/dL % Change: +12% P-TSH reflex to FT4 Reviewed date:11/28/2024 12:11:04 PM Interpretation: Performing Lab: Notes/Report: Test performed by [facility] [address] [place] [address] , [place] [address] Parmjit Martinez MD, Personal Injury Law Specialist CLIA: [id number] TSH reflex to FT4 1.20 0.43-5.25 mU/L P-Microalbumin/Creatinine, R andom Urine Sample Reviewed date:11/28/2024 12:11:04 PM Interpretation: Performing Lab: Notes/Report: Test performed by [facility] [address] [place] [address] , [address], [place] [address] Parmjit Martinez MD, Personal Injury Law Specialist CLIA: [id number] Albumin/Creatinine Ratio, Urine 33 0-30 ug/m g Microalbumin, Urine, Random 0.7 Creatinine, Urine 21.5 REASON FOR VISIT 6 months Medications Medication SIG (Take, Route, Frequency, Duration) Notes Start Date End Date Status Albuterol Sulfate HFA 108 (9 0 Base) MCG/ACT 2 puff(s) inhaled 4 times a day as needed Active Vitamin D3 50 MCG (2000 UT) 2 cap(s) ora lly once a day OTC 03/06/2019 Active Estradiol 0.1 MG/GM as directed Vaginal Active Aspirin 81 81 MG 1 tablet Orally Once a day; Duration: 30 day(s) Active Montelukast Sodium 10 MG 1 tablet Orally Once a day; Duration: 30 days 11/27/2024 Active Bisoprolol-hydroCHLOROthiazi de 5-6.25 MG 1 tab(s) orally once a day; Duration: 90 days Active Mupirocin 2 % 1 application Externally Twice a day Active Fluticasone Propionate 50 MCG/ACT 2 spray in each nostril Nasally Once a day Active Atorvastatin Calcium 20 MG TAKE 1 TABLET BY MOUTH EVERY DAY; Duration: 90 days Active hydroCHLOROthiazide 12.5 MG 1 tablet in the morning Orally Once a day; Duration: 90 days Active Oxygen - 2 l/min per nasal cannula when sleeping 05/29/2024 Active Problems Problem Type SNOMED Code ICD Code Onset Dates Problem Status W/U Status Risk Notes Problem Seasonal allergic rhinitis (312001821) Seasonal allergic rhinitis, unspecified trigger (J30.2) Active confirmed Vital Signs Blood pressure systolic 130 mm Hg 11/28/19 25 Blood pressure diastolic 80 mm Hg 025 Heart Rate 63 /min 11/27/2024 Height 62 in 11/27/2024 Weight 217.4 lbs 11/27/2024 BMI 39.76 kg/m2 11/27/2024 Encounters Encounter Location Date Provider Diagnosis [facility] [address] [place] [id number] 11/27/2024 Martinez Norton Essential hypertensi on I10 ; Hyperlipidemia, unspecified hyperlipidemia type E78.5 ; Seasonal allergic rhinitis, unspecified trigger J30.2 and Chronic obstructive pulmonary disease, unspecified COPD type J44.9 Assessments Encounter Date Diagnosis (ICD Code) Assessment Notes Treatment Notes Treatment Clinical Notes Section Notes 11/27/2024 Essential hypertension (ICD-10 - I10) 11/27/2024 Hyperlipidemia, unspecified hyperlipidemia type (ICD-10 - E78.5) 11/27/2024 Seasonal allergic rhinitis, unspecified trigger (ICD-10 - J30.2) 11/27/2024 Chronic obstructive pulmonary disease, unspecified COPD type (ICD-10 - J44.9) Plan Of Treatment Medication Medication Name Sig Start Date Stop Date Notes Montelukast Sodium 10 MG 1 tablet Orally Once a day; Duration: 30 days 11/27/2024 Bisoprolol-hydroCHLOROthiazi de 5-6.25 MG 1 tab(s) orally once a day; Duration: 90 days Mupirocin 2 % 1 application Key Punch Teacher ally Twice a day Atorvastatin Calcium 20 MG TAKE 1 TABLET BY MOUTH EVERY DAY; Duration: 90 days hydroCHLOROthiazide 12.5 MG 1 tablet in the morning Orally Once a day; Duration: 90 days Next Appt Details Follow Up: 6 Months, Reason: Provider Name:Martinez june, 05/28/2025 09:15:00 AM, [address], [address], [place], [phone], Progress Notes * Celeste SERRATOB: 3 (59 yo F)Acc No.[id number]:11/27/2024 Progress Notes Patient: Celeste ALMAZAN Provider: Aixa Norton M.D. :1965 A ge:59 Y S ex:Female Date:11/27/2024 Address:[address] [place] [address], [place] [id number] Subjective: * Chief Complaints: * 1 . 6 months. * HPI: C ardiology: 59 year old female presents with c/o BloodPressure at Home T he patient is here for a check-up on Hypertension and Hyperlipidemia. Pt states she is doing good except for exacerbation of her allergies. Pt states Dr Lord has put her on Fluticasone nasal spray. Pt is fasting. Denies : Chest Pain. D enies : Short of Breath. D enies : Dizziness. D enies : Palpitations. * ROS: D ERMATOLOGY: no R lai. n o H rosaura. G ASTROENTEROLOGY: no N ausea. n o V omiting. n o D iarrhea.? U ROLOGY: no D ifficulty urinating. n [...] needs repeat CT in 6 to 12 months, COPD, Allergic rhinitis. 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 * Hospitalization/Major Diagno stic Procedure: M ultiple Sclerosis Dx 1999, Chest Pain , Gallbladder Attack- [facility] 07/20/2011, Back Spasms- [facility] ER 03/2014, Chest Pain- [facility] 09/29-, Abdominal Pain- [facility] ER 07/30/2018, Abdominal Pain- [facility] 06/2019, Severe Nose Bleed- 12/15/2019. * Family [...] Determination:, very occasional. * Medications: T aking Mupirocin 2 % Ointment 1 application Externally Twice a day , Taking Fluticasone Propionate 50 MCG/ACT Suspension 2 spray in each nostril Nasally Once a day , Taking Bisoprolol-hydroCHLOROthiazide 5-6.25 MG Tablet 1 tab(s) orally once a day , Taking Aspirin 81 81 MG Tablet Delayed Release 1 tablet Orally Once a day , Taking Estradiol 0.1 MG/GM Cream as directed Vaginal , Taking Vitamin D3 50 MCG (2000 UT) Capsule 2 cap(s) orally once a day , Notes to Pharmacist: OTC, Taking Albuterol Sulfate HFA 108 (90 Base) MCG/ACT Aerosol Solution 2 puff(s) inhaled 4 times a day as needed , Taking Oxygen - - 2 l/min per nasal cannula when sleeping , Taking hydroCHLOROthiazide 12.5 MG Tablet 1 tablet in the morning Orally Once a day , Taking Atorvastatin Calcium 20 MG Tablet TAKE 1 TABLET BY MOUTH EVERY DAY , Medication List reviewed and reconciled with the patient * Allergies: L ortab: makes her sick, stomach. Objective: * Vitals: W t: 217.4, Temp: 98.1, BP: 130/80, HR: 63, O2 Sat: 98% on RA, Nurse: NÉSTOR, Ht: 62, BMI:39.76. * Examination: G eneral Examination: General Appearance: N AD. H EENT: n bebe patent , clear rhinorrhea. H eart: R SR. L ungs: c lear to auscultation. P eripheral pulses: normal (2+) bilaterally. E xtremities: n o leg edema. Assessment: * Assessment: 1. E ssential hypertension - I10 (Primary) 2 . H yperlipidemia, unspecified hyperlipidemia type - E78.5 3 . S easonal allergic rhinitis, unspecified trigger - J30.2 4 . C hronic obstructive pulmonary disease, unspecified COPD type - J44.9 Plan: * Treatment: Value Reference Range A /G Ratio 1.4 1.1-2.5 - * A lbumin 4.3 3.5-5.3 - g/dL * A lkaline Phosphatase 90 35-121 - IU/L * A LT (SGPT) 14 <5-47 - IU/L * A ST (SGOT) 19 <5-40 - IU/L * B ilirubin, Total 0.4 <0.2-1.2 - mg/dL * B UN 6 L 8-23 - mg/dL * C alcium 9.2 8.6-10.4 - mg/dL * C hloride 100 97-108 - mmol/L * C O2 31 22-32 - mmol/L * C reatinine 0.58 0.50-1.00 - mg/dL * G lucose 101 H 65-99 - mg/dL * P otassium 4.7 3.5-5.3 - mmol/L * S odium 141 135-145 - mmol/L * P rotein 7.4 6.0-8.3 - g/dL * e GFR by Creatinine 103 >59 - mL/min/1.73m2 * Ana Richardson 11/28/2024 12: 10:54 PM > See phone encounter ?LAB: P-Microalbumin/Creatinine, Random Urine Sample (Collection Date & Time - 11/27/2024 08:49 AM)* Value Reference Range A lbumin/Creatinine Ratio, Urine 33 H 0-30 - ug /mg * C reatinine, Urine 21.5 - mg/dL * M icroalbumin, Urine, Random 0.7 - mg/dL * Ana Richardson 11/28/2024 12: 10:54 PM > See phone encounter 2.?Hyperlipidemia, unspecified hyperlipidemia type? Refill Atorvastatin Calcium Tablet, 20 MG, TAKE 1 TABLET BY MOUTH EVERY DAY, 90 days, 90 Tablet, Refills 1.?LAB: P-Comprehensive Metabolic Panel (CMP) (Collection Date & Time - 11/27/2024 08:49 AM)?BUN 6* Value Reference Range A /G Ratio 1.4 1.1-2.5 - * A lbumin 4.3 3.5-5.3 - g/dL * A lkaline Phosphatase 90 35-121 - IU/L * A LT (SGPT) 14 <5-47 - IU/L * A ST (SGOT) 19 <5-40 - IU/L * B ilirubin, Total 0.4 <0.2-1.2 - mg/dL * B UN 6 L 8-23 - mg/dL * C alcium 9.2 8.6-10.4 - mg/dL * C hloride 100 97-108 - mmol/L * C O2 31 22-32 - mmol/L * C reatinine 0.58 0.50-1.00 - mg/dL * G lucose 101 H 65-99 - mg/dL * P otassium 4.7 3.5-5.3 - mmol/L * S odium 141 135-145 - mmol/L * P rotein 7.4 6.0-8.3 - g/dL * e GFR by Creatinine 103 >59 - mL/min/1.73m2 * Ana Richardson 11/28/2024 12: 10:54 PM > See phone encounter ?LAB: P-Lipid Panel (Collection Date & Time - 11/27/2024 08:49 AM)?trigs 166 * Value Reference Range C holesterol / HDL Ratio 2.73 0.00-4.44 - Ratio * C holesterol 109 <200 - mg/dL * H DL Cholesterol 40 >39 - mg/dL * L DL Cholesterol (Calculation) 36 <130 - mg/d L * L DL/HDL Ratio 0.9 <3.3 - Ratio * N on-HDL Cholesterol 69 <130 - mg/dL * T riglycerides 166 H <150 - mg/dL * Ana Richardson 11/28/2024 12: 10:54 PM > See phone encounter ?LAB: P-TSH reflex to FT4 (Collection Date & Time - 11/27/2024 08:49 AM)* Value Reference Range T SH reflex to FT4 1.20 0.43-5.25 - mU/L * Ana Richardson 11/28/2024 12: 10:54 PM > See phone encounter 3.?Seasonal allergic rhinitis, unspecified trigger? Start Montelukast Sodium Tablet, 10 MG, 1 tablet, Orally, Once a day, 30 days, 30, Refills 0.? 4.?Others? Refill Mupirocin Ointment, 2 %, 1 application, Externally, Twice a day, 22 grams, Refills 0.? * Procedure Codes: G 2211 Complex e/m visit add on, 3075F SYST BP GE 130 - 139MM HG, 3079F DIAST BP 80-89 MM HG * Follow Up: 6 Months * Images: Billing Information: * Visit Code: 07526 Office Visit, Est Pt., Level 4. * Procedure Codes: G2211 Complex e/m visit add on. 3075F SYST BP GE 130 - 139MM HG. 3079F DIAST BP 80-89 MM HG. * Electronic signature of Janessa Norton MD on 02/03/2025 at 10:41 AM EDT Sign off status: Pending * Provider: Aixa Norton M.D. Date: 0 11/27/2024 Generated for Gaby olson/Kannan/Romeoitting on: 0 02/03/2025 10:41 AM EDT History and Physical Notes * HPI (History of Present Illness) Category Sub-Category Detail Notes Category Not es Cardiology Short of Breath Chest Pain Palpitations Dizziness BloodPressure at Home The patient is her e for a check-up on Hypertension and Hyperlipidemia. Pt states she is doing good except for exacerbation of her allergies. Pt states Dr Lord has put her on Fluticasone nasal spray. Pt is fasting Examination Category Sub-Category Detail Notes Category Not es General Examination HEENT: nares patent , clear rhinorrhea Heart: RSR Lungs: clear to auscultatio n Extremities: no leg edema General Appearance: NAD Peripheral pulses: normal (2+) bilatera lly
--- OUTSIDE RECORDS SUMMARY | 2025-02-03 10:41 | XMS_ITS | Clinical Summary ---
Author Organization [facility] ([place], [place], [place], [place]) Address [address] [place] [address] Care Team Providers Care Pediatric Neuropsychologist Name Role Phone Martinez Norton MD Primary Care Provider [phone] Yeyo Pearson PA-C Unavailable [phone] Allergies Active Allergy Reactions Criticality Noted Date Comments Glatiramer Anaphylaxis High 09/27/2021 BURNING SENSATION AT THE INJECTION SITE, STARTED TO FEEL SHE COULD NOT BREATH, AND LOST CONTROL OF HER BOWELS & BLADDER. PT STATES THAT THE DURATION OF SYMPTOMS WAS APPROXIMATELY 1 HOUR Hydrocodone-Acetamin ophen Nausea And Vomiting,Other (See Comments) Low 11/24/2015 Medications valACYclovir (VALTREX) 500 MG tablet Take 1 tablet (500 mg total) by mouth daily. 4 Active atorvastatin (LIPITOR) 20 MG tablet Take 1 tablet (20 mg total) by mouth daily. Active cholecalciferol (VITAMIN D3) 25 mcg (1,000 unit) tablet Take 1 tablet (1,000 Units total) by mouth daily. Active aspirin 81 MG EC tablet Take 1 tablet (81 mg total) by mouth daily. Active albuterol 90 mcg/actuation inhaler Inhale by mouth every 6 (six) hours as needed. Active umeclidinium-vi lanteroL (Anoro Ellipta) 62.5-25 mcg/actuation dsdv Inhale 1 Inhalation by mouth daily. Active bisoproloL-hydr ochlorothiazide (ZIAC) 5-6.25 mg per tablet Take 1 tablet by mouth daily. Active hydroCHLOROthia zide (HYDRODIURIL) 12.5 MG tablet Take 1 tablet (12.5 mg total) by mouth daily. Active Active Problems No known active problems Family History Medical History Relation Name Comments Heart disease Brother 1 SERINA Heart disease Brother 2 FREDY Heart disease Brother 3 SONG Cancer Father RORO Heart disease Father RORO Diabetes Maternal Aunt VIANCA Arthritis Mother FRANCISCO Diabetes Mother FRANCISCO Osteoporosis Mother FRANCISCO Stroke Mother FRANCISCO Cancer Sister 1 WASHINGTON Cancer Sister 2 VANNIE Relation Name Status Comments Brother 1 SERINA Brother 2 FREDY Brother 3 SONG Father RORO Maternal Aunt VIANCA Mother FRANCISCO Sister 1 WASHINGTON Sister 2 VANNIE Social History Tobacco Use Types Packs/Day Years Used Date Smoking Tobacco: Every Day Cigarettes 1 35 Smokeless Tobacco: Never Tobacco Cessation:Ready to Q uit: No; Counseling Given: Not Answered Alcohol Use Standard Drinks/Week Comments Never 0 (1 standard drink = 0.6 oz pur e alcohol) Comments Unknown Sex and Gender Information Value Date Recorded Sex Assigned at Not on file Legal Sex Female 2:03 PM CDT Gender Identity Not on file Sexual Orientation Not on file Last Filed Vital Signs Vital Sign Reading Time Taken Comments Blood Pressure 104/66 11/01/2024 10:00 AM EDT Pulse 61 11/01/2024 10:00 AM EDT Temperature - - Respiratory Rate - - Oxygen Saturation - - Inhaled Oxygen Concentration - - Weight 98.9 kg (218 lb) 11/01/2024 10:00 AM EDT Height 157.5 cm (5' 2 ) 11/01/2024 10:00 AM EDT Body Mass Index 39.87 11/01/2024 10:00 AM EDT Plan of Treatment Health Maintenance Due Date Last Done Comments CT Colonography 1965 Colonoscopy 1965 Colorectal Cancer Screening 1965 FOBT/FIT 1965 Fit-DNA (Cologuard) 1965 Sigmoidoscopy 1965 Depression Screening (12+) 1975 Tobacco Cessation Counseling and Screening (12+) 1975 HIV Screening 1978 Hepatitis C Screening 1981 Pap Smear 1984 Breast Cancer Screening 2003 Medicare Initial AWV G0438 06/17/2003 Lipid Panel 2008 Lung cancer screening 2013 Shingles Vaccine (Zoster) (1 of 2) 2013 COVID-19 VACCINE ( season) 2024 06/03/2021, 10/17/2020, 09/19/2020 Influenza Vaccine (#1) 2025 DTAP/TDAP/TD VACCINES (2 - T d or Tdap) 09/19/2028 09/19/2018 Respiratory Syncytial Virus (RSV) Adult or (1 - 1-dose 75+ series) 2038 Pneumococcal 50+ years Completed 05/29/2023, 2018 Insurance MEDICARE PART A B Care Teams Pediatric Neuropsychologist Relationship Specialty Start Date End Date Martinez Norton MD [address] [facility] [address] [place] [address] PCP - General Family Medicine 11/01/24 Yeyo Pearson PA-C [address] [facility] [address] [place] [address] Physician Outsole Cementer Machine Orthopedic Surgery 11/01/24
--- OUTSIDE RECORDS SUMMARY | 2025-02-03 10:41 | XMS_ITS | Patient Health Record ---
[facility] Address [address] ANDREW Delgado [id number] Care Team Providers Care Biological Aide Name Role Phone Martinez Norton Primary Care Provider Allergies Allergen (clinical drug ingredient) Drug/Non Drug Allergy documented on EMR Reaction Allergy Type Onset Date Status Lortab makes her sick, stomach Drug Allergy Active Results Component Value Reference Range Notes P-Basic Metabolic Panel (BMP ) Reviewed date:02/13/2024 10:06:11 AM Interpretation:gluc 130 Performing Lab: Notes/Report: Test performed by [facility] [address] [place] [address] , [address], [place] [address] Parmjit Martinez MD, Supervisor Baking CLIA: [id number] Sodium 139 135-145 mmol/L Potassium 5.0 3.5-5.3 mmol/L Chloride 103 97-108 mmol/L CO2 30 22-32 mmol/L Glucose 130 65-99 mg/dL BUN 8 8-23 mg/dL Creatinine 0.58 0.50-1.00 mg/dL Calcium 9.2 8.6-10.4 mg/dL eGFR by Creatinine 103 >59 mL/min/1.73m2 P-Magnesium Reviewed date:02/13/2024 10:06:11 AM Interpretation: Normal Performing Lab: Notes/Report: Test performed by [facility] [address] [place], [place] [address]WIB Miguel Herron, [address], [place] [address] Parmjit Martinez MD, Supervisor Baking CLIA: [id number] Magnesium 2.0 1.6-2.4 mg/dL P-Phosphorus Reviewed date:02/13/2024 10:06:12 AM Interpretation: Normal Performing Lab: Notes/Report: Test performed by [facility] [address] [place] [address] , [place] [address] Parmjit Martinez MD, Supervisor Baking CLIA: [id number] Phosphorus 3.8 2.5-4.5 mg/dL H-BUN/CREAT Reviewed date:06/11/2024 03:23:10 PM Interpretation:Normal Performing Lab: Notes/Report: BUN 9 7-17 mg/dl CREATT 0.60 0.52-1.04 mg/dl GFRAA 123 >60 ML/MIN EGFR 102 >60 ml/min Glucose (In-House) Reviewed date:05/30/2024 08:18:18 AM Interpretation:148 Performing Lab: Notes/Report: 148 blood glucose 148 74 - 106 mg/dL Glycohemoglobin A1c (in hous e) Reviewed date:05/30/2024 08:18:18 AM Interpretation:5.6 Performing Lab: Notes/Report: 5.6 glycohemoglobin 5.6% 5 - 6.5 % P-Basic Metabolic Panel (BMP ) Reviewed date:05/30/2024 08:18:18 AM Interpretation:gluc 123 Performing Lab: Notes/Report: CLIA: [id number] Parmjit Martinez MD, Supervisor Baking [address] [place] [address] , [place] [address] Test performed by [facility] Sodium 140 135-145 mmol/L Potassium 4.8 3.5-5.3 mmol/L Chloride 102 97-108 mmol/L CO2 28 22-32 mmol/L Glucose 123 65-99 mg/dL BUN 10 8-23 mg/dL Creatinine 0.53 0.50-1.00 mg/dL Calcium 8.9 8.6-10.4 mg/dL eGFR by Creatinine 105 >59 mL/min/1.73m2 P-Vitamin D 25-Hydroxy Reviewed date:05/30/2024 08:18:18 AM Interpretation:47.7 Performing Lab: Notes/Report: Test performed by [facility] [address] [place] [address] Miguel Herron, [address], [place] [address] Parmjit Martinez MD, Supervisor Baking CLIA: [id number] Vitamin D 25-Hydroxy 47.7 30.0-100.0 ng/mL Interpretation [...] stable, nothing new, f/u CT in 12-18months P-Comprehensive Metabolic Pa narayan (CMP) Reviewed date:11/28/2024 12:11:04 PM Interpretation:BUN 6 Performing Lab: Notes/Report: CLIA: [id number] Parmjit Martinez MD, Supervisor Baking [address] [place] [address] , [address], [place] [address] Test performed by [facility] Sodium 141 135-145 mmol/L Potassium 4.7 3.5-5.3 [...] 166 Performing Lab: Notes/Report: Test performed by [facility] [address] [place], [place] [address]WIB Amanda , [address], [place] [address] Parmjit Martinez MD, Supervisor Baking CLIA: [id number] Cholesterol 109 <200 mg/dL Triglycerides 166 <150 [...] Interpretation: Performing Lab: Notes/Report: Test performed by [facility], [address] , [facility], [place] [address] Parmjit Martinez MD, Supervisor Baking CLIA: [id number] TSH reflex to FT4 1.20 0.43-5.25 mU/L P-Microalbumin/Creatinine, R andom Urine Sample Reviewed date:11/28/2024 12:11:04 PM Interpretation: Performing Lab: Notes/Report: Test performed by [facility], [address] , [address], [place] [address] Parmjit Martinez MD, Supervisor Baking CLIA: [id number] Albumin/Creatinine Ratio, Urine 33 0-30 ug/m g Microalbumin, Urine, Random 0.7 Creatinine, Urine 21.5 Overnight Oximetry Reviewed date:05/30/2024 08:18:18 AM Interpretation: Performing Lab: Notes/Report: Medications Medication SIG (Take, Route, Frequency, Duration) Notes Start Date End Date Status Bisoprolol-hydroCHLOROthiazi de 5-6.25 MG 1 tab(s) orally once a day; Duration: 90 days Active Oxygen - 2 l/min per nasal cannula when sleeping 05/29/2024 Active Mupirocin 2 % 1 application Externally Twice a day Active Albuterol Sulfate HFA 108 (9 0 Base) MCG/ACT 2 puff(s) inhaled 4 times a day as needed Active Vitamin D3 50 MCG (2000 UT) 2 cap(s) ora lly once a day OTC 03/06/2019 Active Estradiol 0.1 MG/GM as directed Vaginal Active Montelukast Sodium 10 MG TAKE 1 TABLET B Y MOUTH DAILY; Duration: 90 Active Aspirin 81 81 MG 1 tablet Orally Once a day; Duration: 30 day(s) Active Fluticasone Propionate 50 MCG/ACT 2 spray in each nostril Nasally Once a day Active Atorvastatin Calcium 20 MG TAKE 1 TABLET BY MOUTH EVERY DAY; Duration: 90 days Active hydroCHLOROthiazide 12.5 MG 1 tablet in the morning Orally Once a day; Duration: 90 days Active Immunizations Vaccine Route Administration Date Status Comme nts COVID 19 Pfizer Unknown 10/17/2020 Administered COVID 19 Pfizer Unknown 06/03/2021 Administered Fluzone Quad (6months&older) IM Intramuscular 06/03/2021 Administered Fluzone Quad (6months&older) IM Intramuscular 05/30/2022 Administered Fluzone Quad (6months&older) IM Intramuscular 05/29/2023 Administered Fluzone Quad (6months&older) IM Intramuscular 05/29/2024 Administered PNEUMOVAX 23 VACCINE IM Intramuscular 09/19/2018 Administe red Prevnar (PCV20) IM Intramuscular 05/29/2023 Administered Tetanus Tdap-Adacel (over 7yrs) IM Intramuscular 09/19/2018 Administered Problems Problem Type SNOMED Code ICD Code Onset Dates Problem Status W/U Status Risk Notes Problem Vitamin D deficiency (99848516) Vitamin D deficiency (E55.9) Active confirmed Problem Essential hypertension (16410282) Essential hypertension (I10) Active confirmed Problem Solitary nodule of lung (012443731) Lung nodule (R91.1) Active confirmed Problem Morbid obesity (480655230) Morbid obesity (E66.01) Active confirmed Problem Idiopathic sleep related non-obstructive alveolar hypoventilation (069518321) Nocturnal hypoxia (G47.34) Active confirmed Problem COPD - Chronic obstructive pulmonary disease (59411067) Chronic obstructive pulmonary disease, unspecified COPD type (J44.9) Active confirmed Problem Acute upper respiratory infection (79178277) Acute upper respiratory infection (J06.9) Active confirmed Problem Hyperlipidaemia (79867793) Hyperlipidemia, unspecified hyperlipidemia type (E78.5) Active confirmed Problem Tobacco user (390394973) Cigarette nicotine dependence without complication (F17.210) Active confirmed Problem Impaired fasting glycaemia (027627909) IFG (impaired fasting glucose) (R73.01) Active confirmed Problem Obesity (998985198) Non morbid obesity (E66.9) Active confirmed Problem Uncomplicated moderate persistent asthma (924056194) Moderate persistent asthmatic bronchitis without complication (J45.40) Active confirmed Problem Seasonal allergic rhinitis (730198280) Seasonal allergic rhinitis, unspecified trigger (J30.2) Active confirmed Problem Dysfunction of eustachian tube (disorder) (21568285) Dysfunction of Eustachian tube, unspecified laterality (H69.80) Active confirmed Problem Osteopenia following menopause (disorder) (039949599) Osteopenia after menopause (M81.0) Active confirmed Problem Idiopathic sleep related non-obstructive alveolar hypoventilation (555067291) Nocturnal hypoxemia (G47.34) Active confirmed Problem Acute left-sided low back pain without sciatica (M54.50) Active confirmed Vital Signs Heart Rate 63 /min 11/27/2024 Blood pressure diastolic 80 mm Hg 11/27/2024 Height 62 in 11/27/2024 Blood pressure systolic 130 mm Hg 11/27/2024 Weight 217.4 lbs 11/27/2024 BMI 39.76 kg/m2 11/27/2024 Encounters Encounter Location Date Provider Diagnosis [facility] [address] [facility] [address] [place], [place] [id number] 02/12/2024 Martinez Barnet Essential hypertensi on I10 ; Snoring R06.83 ; Peripheral edema R60.0 ; Chronic obstructive pulmonary disease, unspecified COPD type J44.9 and Muscle cramps R25.2 [facility] [address] [facility] [address] [place], [place] [id number] 05/29/2024 Martinez Barnet Essential hypertensi on I10 ; IFG (impaired fasting glucose) R73.01 ; Vitamin D deficiency E55.9 ; Nocturnal hypoxia G47.34 ; Lung nodule R91.1 and Encounter for immunization Z23 [facility] [address] [facility] [address] [place], [place] [id number] 11/27/2024 Martinez Barnet Essential hypertensi on I10 ; Hyperlipidemia, unspecified hyperlipidemia type E78.5 ; Seasonal allergic rhinitis, unspecified trigger J30.2 and Chronic obstructive pulmonary disease, unspecified COPD type J44.9 [facility] [address] [facility] [address] [place], [place] [id number] 02/13/2024 Martinez Barnet [facility] [address] [facility] [address] [place] [id number] 05/08/2024 Martinez Barnet [facility] [address] [place] [id number] 05/30/2024 Martinez Barnet [facility] [address] [place], [place] [id number] 06/17/2024 Martinez Barnet [facility] [address] [facility] [address] [place], [place] [id number] 11/28/2024 Martinez Barnet Assessments Encounter Date Diagnosis (ICD Code) Assessment Notes Treatment Notes Treatment Clinical Notes Section Notes 02/12/2024 Essential hypertension (ICD-10 - I10) 02/12/2024 Snoring (ICD-10 - R06.83) 05/29/2024 Essential hypertension (ICD-10 - I10) 05/29/2024 IFG (impaired fasting glucose) (ICD-10 - R73.01) 11/27/2024 Essential hypertension (ICD-10 - I10) 11/27/2024 Hyperlipidemia, unspecified hyperlipidemia type (ICD-10 - E78.5) 11/27/2024 Seasonal allergic rhinitis, unspecified trigger (ICD-10 - J30.2) 02/12/2024 Peripheral edema (ICD-10 - R60.0) 05/29/2024 Vitamin D deficiency (ICD-10 - E55.9) 11/27/2024 Chronic obstructive pulmonary disease, unspecified COPD type (ICD-10 - J44.9) 05/29/2024 Nocturnal hypoxia (ICD-10 - G47.34) After reviewing the pulse oximetry report, I'd like to start oxygen 2 L per minute when sleeping. 02/12/2024 Chronic obstructive pulmonary disease, unspecified COPD type (ICD-10 - J44.9) 02/12/2024 Muscle cramps (ICD-10 - R25.2) 05/29/2024 Lung nodule (ICD-10 - R91.1) 05/29/2024 Encounter for immunization (ICD-10 - Z23) Plan Of Treatment Next Appt Details Provider Name:Martinez Grimaldo ry, 05/28/2025 09:15:00 AM, [address] [facility], [address], [place], [place], [id number], Insurance Providers Payer Name Payer Address Payer Phone Subscriber Number Group Number Insured Name Patient Relationship to Insured Coverage Start Date Coverage End Date MEDICARE PART B [address] [address] [place] [id number] Celeste Serrato Self - patient is the insured Medical (General) History Medical History History ICD Code Multiple Sclerosis - followed by Dr. Natalie fitzgerald Mitral Valve Prolapse Diverticulosis Bilateral Carpal Tunne Hidradenitis Suppurativa Hypertension, normal left heart cath Sep Kidney Stones Osteopenia Impaired Fasting Glucose CT scan of sinuses negative 12/25/2019 30 Year Smoking History as of 2021 RT Upper Lobe Lung Nodule, 6 mm, September 2023, needs repeat CT in 6 to 12 months COPD allergic rhinitis Surgical History Surgery Date(Month/Year) Tonsillectomy Tubal Ligation 1982 D&C 2003 Hysterectomy 2004 Hemicolectomy with Colostomy 2004 Colostomy Reversal 2006 Cholecystectomy 07/2011 Kidney Stones 05/2012 Bladder Lift, Urethra Widening 06/2012 Heart Cath 09/30/2014 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
--- OUTSIDE RECORDS SUMMARY | 2025-02-03 10:41 | XMS_ITS | Referral Summary ---
Author Organization [employer] ([place], [place], [place], [place]) Address [address] [place] [address] Care Team Providers Care Bowling Ball Finisher Name Role Phone Martinez Norton MD Primary Care Provider + [phone] Yeyo Pearson PA-C Unavailable +[phone] Allergies Active Allergy Reactions Criticality Noted Date [...] Active Active Problems No known active problems Social History Tobacco Use Types Packs/Day Years [...] 11/01/2024 10:00 AM EDT Plan of Treatment Not on file Insurance MEDICARE PART A B Care Teams Bowling Ball Finisher Relationship Specialty Start Date End Date Martinez Norton MD [address] [facility] [address] [place] [address] PCP - General Family Medicine 11/01/24 Yeyo Pearson PA-C [address] [facility] [address] [place] [address] Physician Insurance Clerk Orthopedic Surgery 11/01/24
--- OUTSIDE RECORDS SUMMARY | 2025-02-03 10:41 | XMS_ITS ---
Author Organization Unknown Allergies, Adverse Reactions and Alerts Date IsAllergic OnsetDate Allergen Reaction Type Severity Familia rgyCode Legacyallergictoid ReactionCode ReactionCodeSystemID Custom 11/28 00:00 :00 1 Lortab makes her sick, stomach 11/27 00:00 :00 1 Lortab makes her sick, stomach 06/17 00:00 :00 1 Lortab makes her sick, stomach 05/30 00:00 :00 1 Lortab makes her sick, stomach 05/29 00:00 :00 1 Lortab makes her sick, stomach 05/08 00:00 :00 1 Lortab makes her sick, stomach 02/12 00:00 :00 1 Lortab makes her sick, stomach 02/11 00:00 :00 1 Lortab makes her sick, stomach
--- OUTSIDE RECORDS SUMMARY | 2025-02-03 10:42 | XMS_ITS | Clinical Summary ---
Author Organization [facility] Address [address] [place] [address] Care Team Providers Care Carry In Worker Name Role Phone Martinez Norton MD Primary Care Provider + [phone] Allergies Active Allergy Reactions Criticality Noted Date Comments Glatiramer Acetate Shortness Of Breath High 09/28/19 22 BURNING SENSATION AT THE INJECTION SITE, STARTED TO FEEL SHE COULD NOT BREATH, AND LOST CONTROL OF HER BOWELS & BLADDER. PT STATES THAT THE DURATION OF SYMPTOMS WAS APPROXIMATELY 1 HOUR Hydrocodone-Acetamin ophen GI Intolerance 11/24/2015 Medications bisoprolol-hydr ochlorothiazide (ZIAC) 2.5-6.25 MG per tablet Take 1 tablet by mouth Daily. 02/14/2013 Active albuterol sulfate HFA 108 (90 Base) MCG/ACT inhaler Inhale 2 puffs Every 4 (Four) Hours As Needed for Wheezing. Active cholecalciferol (VITAMIN D3) 25 MCG (1000 UT) tablet Take 4 tablets by mouth Daily. Active atorvastatin (LIPITOR) 20 MG tablet Take 1 tablet by mouth Daily. Active aspirin 81 MG EC tablet Take 1 tablet by mouth Daily. Active valACYclovir (VALTREX) 500 MG tablet Take 1 tablet by mouth Daily. 90 tablet 3 05/30/2024 Active Active Problems Problem Noted Date Diagnosed Date Other emphysema 06/23/2021 MVP (mitral valve prolapse) 06/23/2021 Migraine without aura and wi thout status migrainosus, not intractable 11/06/2018 Assessment & Plan (05/30/2024 8:59 AM EST): Stable Assessment & Plan (03/08/2023 9:08 AM EDT): Headaches are improving with lifestyle modifications. Counseled regarding lifestyle modifications. Assessment & Plan (03/03/2022 9:57 AM EDT): Headaches are improving with treatment. Continue current treatment regimen. Assessment & Plan (09/02/2021 10:02 AM EST): Headaches are improving with treatment. Continue current treatment regimen. Assessment & Plan (02/19/2021 8:25 AM EDT): Headaches are worsening. Continue current treatment regimen. Assessment & Plan (01/11/2021 1:30 PM EDT): Headaches are unchanged. Continue current treatment regimen. Foot pain, bilateral 11/29/2017 Arthralgia of multiple sites 11/29/2017 Vertigo 11/24/2016 Anxiety 07/26/2016 Insomnia 07/26/2016 Multiple sclerosis 07/26/2016 Assessment & Plan (05/30/2024 8:59 AM EST): No new or worsening sx Off DMT Assessment & Plan (03/08/2023 9:06 AM EDT): MSFC WNL Stable on DMT Assessment & Plan (03/03/2022 9:57 AM EDT): SLS improved in last year Stable off DMT Assessment & Plan (09/02/2021 10:05 AM EST): Pt wishes to remain off DMT due to recent SE. Valtrex prn for HSV 1 outbreaks Assessment & Plan (02/19/2021 8:25 AM EDT): Recent relapse off DMT Restart GA 40 mg TIW Assessment & Plan (01/11/2021 1:30 PM EDT): Worsening sx off DMT MRI B/C/T Labs Resolved Problems Problem Noted Date Diagnosed Date Resolved Date Headache 06/23/2021 09/02/2021 Assessment & Plan (09/02/2021 10:02 AM EST): Timing is once a month. Tension headache 11/24/2016 09/02/2021 Immunizations Immunization Administration Dates Next Due Fluzone Quad >6mos (Multi-dose) 06/03/2021 Pneumococcal Polysaccharide (PPSV23) 09/19/2018 Tdap 09/19/2018 Family History Medical History Relation Name Comments Cancer Other Diabetes Other Diabetes Mellit Heart disease Other Mental illness Other Seizures Other Stroke Other Relation Name Status Comments Other Social History Tobacco Use Types Packs/Day Years Used Date Smoking Tobacco: Never Passive Smoke Exposure: Never Smokeless Tobacco: Never Tobacco Cessation:Counseling Given: No Alcohol Use Standard Drinks/Week Comments Yes 0 (1 standard drink = 0.6 oz pur e alcohol) Comments Unknown Sex and Gender Information Value Date Recorded Sex Assigned at Not on file Legal Sex Female 11:34 AM EDT Gender Identity Not on file Sexual Orientation Not on file Last Filed Vital Signs Vital Sign Reading Time Taken Comments Blood Pressure 128/78 05/30/2024 8:43 AM EST Pulse 60 05/30/2024 8:43 AM EST Temperature 36.1 C (96.9 F) 06/23/2021 8:24 AM EST Respiratory Rate 14 05/30/2024 8:43 AM EST Oxygen Saturation 98% 05/30/2024 8:43 AM EST Inhaled Oxygen Concentration - - Weight 98.4 kg (217 lb) 05/30/2024 8:43 AM EST Height 154.9 cm (5' 1 ) 05/30/2024 8:43 AM EST Body Mass Index 41 05/30/2024 8:43 AM EST Plan of Treatment Upcoming Encounters Date Type Department Care Team (Late st Contact Info) Description 05/30/2025 9:15 AM EST Office Visit [facility] [address] [place] [address] Ck Sterling MD [address] [place] [address] Health Maintenance Due Date Last Done Comments Annual Gynecologic Pelvic an d Breast Exam 1963 PAP SMEAR 1984 COLOGUARD 2008 COLON CANCER SCREENING 5 YEA R SIGMOIDOSCOPY 2008 COLONOSCOPY 2008 [address] CANCER SCREENING 2008 [address] COLONOGRAPHY 2008 FECAL OCCULT BLOOD TEST 2008 FIT Testing (1 year) 2008 ZOSTER VACCINE (1 of 2) 2013 ANNUAL WELLNESS VISIT 11/24/2016 COVID-19 Vaccine (4 - 2023-2 5 season) 2024 06/03/2021, 10/17/2020, 09/19/2020 MAMMOGRAM 12/19/2024 12/19/2022, 11/2022, 12/16/2021, Additional history exists INFLUENZA VACCINE 04/16/2025 05/29/2023, , 05/30/2022, Additional history exists TDAP/TD VACCINES (2 - Td or Tdap) 09/19/2028 019 HEPATITIS C SCREENING Completed 01/11/2021 Pneumococcal Vaccine 50+ Completed 05/29/2023, 12/2018 Procedures Procedure Name Priority Date/Time Associated Diagnosis Comments HEPATITIS PANEL, ACUTE Routine 01/11/2021 1:39 PM EDT Multiple sclerosis Chronic fatigue, unspecified from Last 3 Months or Most Recently Relevant to Health Maintenance Results * Hepatitis Panel, Acute (01/11/2021 1:39 PM EDT) Hepatitis B Surface Ag Non-Reacti ve Non-Reacti ve 01/12/2021 3:03 AM EDT [facility] Hep A IgM Non-Reacti ve Non-Reacti ve 01/12/2021 3:03 AM EDT [facility] Hep B C IgM Non-Reacti ve Non-Reacti ve 01/12/2021 3:03 AM EDT [facility] Hepatitis C Ab Non-Reacti ve Non-Reacti ve 01/12/2021 3:03 AM EDT [facility] Blood Venipuncture / Unknown 01/11/2021 1:39 PM EDT 01/11/2021 1:39 PM EDT Narrative [facility] - 01/12/2021 3:03 AM EDT Results may be falsely decreased if patient taking Biotin. us Ck Sterling MD LAB BLOOD ORDERABLES Final Re sult [facility]
[address] [place] [address], from Last 3 Months or Most Recently Relevant to Health Maintenance Insurance MEDICARE A & B Care Teams Carry In Worker Relationship Specialty Start Date End Date Martinez Norton MD [address] [facility] [address] [place] [address] PCP - General 09/01/15
--- OUTSIDE RECORDS SUMMARY | 2025-02-03 10:42 | XMS_ITS | Clinical Summary ---
Author Organization [facility] Address [address] [place] [address] Care Team Providers Care Maintenance Tech Name Role Phone Martinez Norton MD Primary Care Provider [phone] Allergies Active Allergy Reactions Criticality Noted Date Comments Glatiramer Anaphylaxis High 09/27/2021 BURNING SENSATION AT THE INJECTION SITE, STARTED TO FEEL SHE COULD NOT BREATH, AND LOST CONTROL OF HER BOWELS & BLADDER. PT STATES THAT THE DURATION OF SYMPTOMS WAS APPROXIMATELY 1 HOUR Hydrocodone Itching,Nausea Medium 08/08/2022 Hydrocodone-Acetamin ophen Other - please document in the comment field Low 11/24/2015 Medications valACYclovir (Valtrex) 500 MG tablet Take 1 tablet (500 mg) by mouth if needed. 2 Active bisoprolol-hydr oCHLOROthiazide (Ziac) 2.5-6.25 MG tablet Take 2.5 tablets by mouth 1 (one) time each day. 0 Active atorvastatin (Lipitor) 20 MG tablet Take 1 tablet (20 mg) by mouth 1 (one) time each day. 2 Active albuterol 108 (90 Base) MCG/ACT inhaler 2 Active cholecalciferol (Vitamin D-3) 25 MCG (1000 UT) tablet Take 4 tablets (4,000 Units) by mouth 1 (one) time each day. Active aspirin 81 MG EC tablet Take 1 tablet by mouth Daily. Active Umeclidinium-Vi lanterol (Anoro Ellipta) 62.5-25 MCG/ACT aerosol powder aerosol powder Inhale 1 Inhalation daily. Active Active Problems Problem Noted Date Diagnosed Date Class III obesity with body mass index (BMI) of 40.0 or higher 10/11/2023 Atrophic vaginitis 08/09/2022 Microscopic hematuria 08/09/2022 Adrenal mass 08/09/2022 Sensation of pressure in bladder area 08/09/2022 Other emphysema 06/23/2021 MVP (mitral valve prolapse) 06/23/2021 Epistaxis 12/11/2019 Hyperlipemia 12/11/2019 Migraine without aura and wi thout status migrainosus, not intractable 11/06/2018 Overview (10/14/2022): Last Assessment & Plan: Headaches are improving with treatment. Continue current treatment regimen. Arthralgia of multiple sites 11/29/2017 Foot pain, bilateral 11/29/2017 Vertigo 11/24/2016 Anxiety 07/26/2016 Insomnia 07/26/2016 Multiple sclerosis 07/26/2016 Overview (10/14/2022): Last Assessment & Plan: SLS improved in last year Stable off DMT Immunizations Immunization Administration Dates Next Due Influenza, injectable, quadrivalent 05/30/2022,1 08/03/2020 [employer] COVID-19 Vac cine (Purple Cap) 12+ 06/03/2021,10/17/2020,09/19/2020 Pneumococcal Polysaccharide PPV23 09/19/2018 Tdap 09/19/2018 Family History Medical History Relation Name Comments Cardiac disorder Father Diabetes Mother Epilepsy Mother Relation Name Status Comments Father Mother Social History Tobacco Use Types Packs/Day Years Used Date Smoking Tobacco: Every Day Cigarettes Smokeless Tobacco: Never Tobacco Cessation:Ready to Q uit: Not Asked; Counseling Given: Not Answered Alcohol Use Standard Drinks/Week Comments Never 0 (1 standard drink = 0.6 oz pur e alcohol) PHQ-2 Answer Date Recorded Patient Health Questionnaire-2 Score 0 08/08/2022 PHQ-2A Answer Date Recorded Patient Health Questionnaire-2 Score 0 08/08/2022 Comments No Sex and Gender Information Value Date Recorded Sex Assigned at Not on file Legal Sex Female 6:54 PM EDT Gender Identity Not on file Sexual Orientation Not on file Last Filed Vital Signs Vital Sign Reading Time Taken Comments Blood Pressure 113/72 10/15/2024 8:58 AM EDT Pulse 107 10/15/2024 8:58 AM EDT Temperature - - Respiratory Rate - - Oxygen Saturation - - Inhaled Oxygen Concentration - - Weight 99.8 kg (220 lb 0.3 oz) 10/15/2024 8:58 A M EDT Height 154.9 cm (5' 1 ) 10/15/2024 8:58 AM EDT Body Mass Index 41.57 10/15/2024 8:58 AM EDT Plan of Treatment Upcoming Encounters Date Type Department Care Team (Late st Contact Info) Description 10/21/2025 9:00 AM EDT Office Visit [facility] Endocrinology [address] [place] [address] (3), Johnny Pavon Fellow Health Maintenance Due Date Last Done Comments [facility]-HIV Screening 1965 [facility]-Hepatitis C Screening 1965 [facility]-Medicare Annual Wellness (AWV) 1965 [facility]-Infant/Child/Adol SDOH Screenings 1965 [facility]- SDOH Screenings 1981 [facility]Y-Adult SDOH Screenings 1981 CT Colonography 2008 Colonoscopy 2008 FIT-DNA 2008 FIT 2008 FOBT 2008 Sigmoidoscopy 2008 [facility]-Colorectal Cancer Screening 2008 [facility]-Breast Cancer Screening 2013 [facility]Y-Zoster Vaccines (1 of 2) 2013 [facility]Y-RSV Vaccine: 60+ Years or (1 - Risk 60-74 years 1-dose series) 2023 [facility]-Depression Screening 08/08/2023 08/08/2022 [id number] Vaccine ( - season) 2024 06/03/2021, 10/17/2020, 09/19/2020 [facility]-Influenza Vaccine (#1) 2025 05/30/2022, [facility]-DTaP,Tdap,and Td Vaccines (2 - Td or Tdap) 09/19/2028 09/19/2018 [facility]Y-Pneumococcal Vaccine: 50+ Years Completed 05/29/2023, 09/19/2018 [facility]-Obesity Intervention Completed 025, 10/10/2023, 10/14/2022, Additional history exists HPV Vaccines Aged Out No longer eligi ble based on patient's age to complete this topic [facility]-HIB Vaccines Aged Out No longer e ligible based on patient's age to complete this topic UKY-Hepatitis A Vaccines Aged Out No longer eligible based on patient's age to complete this topic UKY-IPV Vaccines Aged Out No longer e ligible based on patient's age to complete this topic [facility]Y-Rotavirus Vaccines Aged Out No lo nger eligible based on patient's age to complete this topic Insurance MEDICARE Care Teams Maintenance Tech Relationship Specialty Start Date End Date Martinez Norton MD [address] [facility] [address] [place] [address] PCP - General 11/27/20
--- NOTE | 2025-02-03 11:30 | FL_ITS ---
FINAL REPORT CLINICAL HISTORY: sniff test, SOA 0.20 min DAP 286.54 FINDINGS: SNIFF TEST HISTORY: Shortness of breath. FINDINGS: A sniff test was performed. there was slight elevation of the right hemidiaphragm. There was no paradoxical movement . There was proper diaphragmatic excursion which was symmetric. Fluoroscopy time: 20 seconds Fluoro dose: 286.54 DAP in [employer] reviewed , interpreted and dictated by Dr. Collins. Transcribed by Americo Mcgraw PA-C. Reviewed, Interpreted and Dictated by Casper Collins MD Transcribed by LIONEL Johnson Authenticated and [facility]
--- NOTE | 2025-02-03 12:04 | XR_ITS ---
FINAL REPORT CLINICAL HISTORY: For VQ scan COMPARISON: 01/08/2024 FINDINGS: 2 views of the chest were obtained . The heart is normal in size. The mediastinum is within normal limits. The lungs are clear. There is no pneumothorax. Osseous structures are unremarkable. IMPRESSION: No acute cardiopulmonary process. Reviewed, Interpreted and Dictated by Casper Collins MD Transcribed by Chaparrita Valerio Authenticated and . [facility]
[2025-02-03] MEDS: ISOTOPE DTPA(AEROSOL);1 DOSE (UP TO 75 MCI) IV (12:20)
[2025-02-03] MEDS: ISOTOPE TC MAA;1 DOE (UP TO 45 MCI) 1 DOSE IV (12:20)
[2025-02-03] MEDS: SODIUM CHLORIDE 0.9% 10ML SYR (RAD ONLY) 10 ML IV (12:20)
--- NOTE | 2025-02-03 13:00 | NM_ITS ---
FINAL REPORT CLINICAL HISTORY: SOB 11:05AM 36.8 MCI TC DTPA 12:00PM 8.82 MCI TC MAA CXR ALSO DONE TODAY COMPARISON: None FINDINGS: NUCLEAR MEDICINE VENTILATION AND PERFUSION IMAGING TECHNIQUE: V/Q scan is performed utilizing 36.8 technetium 99 M DTPA aerosol and IV administration of 8.82 technetium 99 M MAA. Images were obtained in AP, PA, lateral, and oblique projections. FINDINGS Large matched defect within the left upper lobe near the apex probably related to underlying emphysematous disease. There is a small matched defect of the right upper lobe, also probably related to underlying emphysema. Mild central deposit of tracer on ventilation images may be seen with small airways disease. No mismatch perfusion defects seen. IMPRESSION: Low probability for pulmonary embolus. Reviewed, Interpreted and Dictated by Casper Collins MD Transcribed by Aminta Mejias Authenticated and [facility]
== END 2025-02-03 23:59 | disposition home or self-care (01) ==
LOC: RAD 10:35
PROVIDERS: PCP Family Medicine; Visit Provider Internal Medicine Pulmonary Disease
DX: J98.6 Disorders of diaphragm (principal); R06.09 Other forms of dyspnea; R06.02 Shortness of breath; R94.2 Abnormal results of pulmonary function studies
CPT/HCPCS: 71046; 76000; 78582; A9540; A9567

== ENCOUNTER 2025-05-08 13:56 | Outpatient (CLI) | payer MEDICARE, SELFPAY ==
--- NOTE | 2025-05-08 14:00 | MM_ITS ---
PROCEDURE INFORMATION: Exam: MG Bilateral Screening 3D Mammography Exam date and time: 05/08/2025 2:04 PM Age: 59 years old Clinical indication: Screening examination TECHNIQUE: Imaging protocol: Bilateral Screening tomosynthesis and 2D mammography including computer-aided detection (CAD) when performed. COMPARISON: 1. MG MM DIG SCREENING MAMM BI W/CAD 01/02/2024 7:51 AM 2. MG MM DIG SCREENING MAMM BI W/CAD 12/19/2022 7:56 AM FINDINGS: MAMMOGRAPHY: Breast composition: There are scattered areas of fibroglandular density. Mass: No suspicious masses. Architectural distortion: None. Calcifications: No suspicious calcifications. Asymmetric density: None. Skin thickening: None. Axillary adenopathy: None. IMPRESSION: No mammographic evidence of malignancy. Annual screening is recommended unless otherwise clinically indicated. ASSESSMENT: BI-RADS Category 1: Negative.
--- OUTSIDE RECORDS SUMMARY | 2025-05-08 14:40 | XMS_ITS | Clinical Summary ---
Author Organization [employer] ([place], [place], [place], [place]) Address [address] [place] [address] Care Team Providers Care Silk Hanger Name Role Phone Martinez Norton MD Primary Care Provider + [phone] Yeyo Pearson PA-C Unavailable [phone] Allergies Active Allergy Reactions Criticality Noted Date [...] AWV G0438 06/17/2003 Lipid Panel 2008 Lung Cancer Screening 2013 Shingles Vaccine (Zoster) (1 of 2) 2013 COVID-19 VACCINE ( season) 2025 06/03/2021, 10/17/2020, 09/19/2020 Influenza Vaccine (#1) 2025 DTAP/TDAP/TD VACCINES (2 - T d or Tdap) 09/19/2028 09/19/2018 Respiratory Syncytial Virus (RSV) Adult or (1 - 1-dose 75+ series) 2038 Pneumococcal 50+ years Completed 05/29/2023, 2018 Insurance MEDICARE PART A B Care Teams Silk Hanger Relationship Specialty Start Date End Date Martinez Norton MD [address] [facility] [address] [place] [address] PCP - General Family Medicine 11/01/24 Yeyo Pearson PA-C [address] [facility] [address] [place] [address] Physician Portable Power Tool Repairer Orthopedic Surgery 11/01/24
--- OUTSIDE RECORDS SUMMARY | 2025-05-08 14:40 | XMS_ITS | Clinical Summary ---
Author Organization [facility] Address [address] [place] [address] Care Team Providers Care Caseworker Name Role Phone Martinez Norton MD Primary Care Provider [phone] Allergies Active Allergy Reactions Criticality Noted Date [...] treatment regimen. Arthralgia of multiple sites 11/29/2017 Vertigo 11/24/2016 Anxiety 07/26/2016 Multiple sclerosis 07/26/2016 Overview (10/14/2022): Last Assessment & Plan: SLS improved in last year Stable off DMT Resolved Problems Problem Noted Date Diagnosed Date Resolved Date Foot pain, bilateral 11/29/2017 025 Insomnia 07/26/2016 04/06/2025 Immunizations Immunization Administration Dates Next Due Influenza, injectable, quadrivalent 05/30/2022,1 08/03/2020 [employer] COVID-19 Vac cine (Purple Cap) 12+ 06/03/2021,10/17/2020,09/19/2020 [...] Description 10/21/2025 9:00 AM EDT Office Visit [facility] Endocrinology [address] [place] [address] (3), Johnny Pavon Fellow Health Maintenance Due [...] 1-dose series) 2023 [facility]-Depression Screening 08/08/2023 08/08/2022 [id number] Vaccine ( - season) 2025 06/03/2021, 10/17/2020, 09/19/2020 [facility]-Influenza Vaccine (#1) 2025 [...] age to complete this topic Insurance MEDICARE Member Subscriber Plan / Payer (Ef fective 2002-Present) Name:Celeste Serrato Member ID:[id number] Relation to Subscriber:Self Name:Celeste Serrato Subscriber ID:[id number] Payer ID:MEDICARE Group ID:Not on file Type:Medicare Address: [place] [phone] Care Teams Caseworker Relationship Specialty Start Date End Date Martinez Norton MD [address] [facility] [address] [address] PCP - General 11/27/20
--- OUTSIDE RECORDS SUMMARY | 2025-05-08 14:40 | XMS_ITS | Referral Summary ---
Author Organization [employer] ([place], [place], [place], [place]) Address [address] [place] [address] Care Team Providers Care Accounting Advisory Services Manager Name Role Phone Martinez Norton MD Primary Care Provider + [phone] Yeyo Pearson PA-C Unavailable [phone] Allergies Active Allergy Reactions Criticality Noted Date [...] Insurance MEDICARE PART A B Care Teams Accounting Advisory Services Manager Relationship Specialty Start Date End Date Martinez Norton MD [address] [facility] [address] [place] [address] PCP - General Family Medicine 11/01/24 Yeyo Pearson PA-C [address] [facility] [address] [place] [address] Physician Caterer'S Aide Orthopedic Surgery 11/01/24
--- OUTSIDE RECORDS SUMMARY | 2025-05-08 14:40 | XMS_ITS | Clinical Summary ---
Author Organization [facility] Address [address] [place] [address] Care Team Providers Care Basket Mender Name Role Phone Martinez Norton MD Primary Care Provider + [phone] Allergies Active Allergy Reactions Criticality Noted Date [...] Description 05/30/2025 9:15 AM EST Office Visit [facility] NEUROLOGY [address] [place] [address] Ck [place] MD [address] [place] [address] Health Maintenance Due Date Last Done Comments Annual Gynecologic Pelvic an d Breast Exam 1965 PAP SMEAR 1984 COLOGUARD 2008 COLON CANCER SCREENING 5 YEA R SIGMOIDOSCOPY 2008 COLONOSCOPY [address] CANCER SCREENING 2008 CT COLONOGRAPHY 2008 FECAL OCCULT BLOOD TEST 2008 FIT Testing (1 year) 2008 ZOSTER VACCINE (1 of 2) 2013 ANNUAL WELLNESS VISIT 11/24/2016 MAMMOGRAM 12/19/2024 12/19/2022, 11/2022, 12/16/2021, Additional history exists INFLUENZA VACCINE 02/14/2025 05/29/2023, , 05/30/2022, Additional history exists TDAP/TD [...] 01/12/2021 3:03 AM EDT [facility] Hep A IgM Non-Reacti ve Non-Reacti ve 01/12/2021 3:03 AM EDT [facility] Hep B C IgM Non-Reacti ve Non-Reacti ve 01/12/2021 3:03 AM EDT [facility] Hepatitis C Ab Non-Reacti ve Non-Reacti ve 01/12/2021 3:03 AM EDT [facility] Blood Venipuncture / Unknown 01/11/2021 1:39 PM EDT 01/11/2021 1:39 PM EDT Narrative [facility] - 01/12/2021 3:03 AM EDT Results may be falsely decreased if patient taking Biotin. us Ck [place] MD LAB BLOOD ORDERABLES Final Re sult [facility]
[address] [place] [address], [place] [phone] from Last 3 Months or Most Recently Relevant to Health Maintenance Insurance MEDICARE A & B Care Teams Basket Mender Relationship Specialty Start Date End Date Martinez Norton MD [address] [facility] [address] [place] [address] PCP - General 09/01/15
== END 2025-05-08 23:59 | disposition home or self-care (01) ==
LOC: RAD 13:58
PROVIDERS: PCP Family Medicine; Visit Provider Family Medicine
DX: Z12.31 Encounter for screening mammogram for malignant neoplasm of breast (principal); R92.323 Mammographic fibroglandular density, bilateral breasts
CPT/HCPCS: 77063; 77067

== ENCOUNTER 2025-06-17 08:52 | Outpatient (CLI) | payer MEDICARE, SELFPAY ==
--- OUTSIDE RECORDS SUMMARY | 2025-06-17 08:55 | XMS_ITS | Referral Summary ---
Author Organization [employer] ([place], [place], [place], [place], [place]) Address [address] [place] [address] Care Team Providers Care Heel Slugger Name Role Phone Martinez Norton MD Primary Care Provider + [phone] Yeyo Pearson PA-C Unavailable [phone] Allergies Active Allergy Reactions Criticality Noted Date [...] Insurance MEDICARE PART A B Care Teams Heel Slugger Relationship Specialty Start Date End Date Martinez Norton MD [address] [facility] [address] [place] [address] PCP - General Family Medicine 11/01/24 Yeyo Pearson PA-C [address] [facility] [address] [place], [place] [id number] Physician Supervisor Delivery Department Orthopedic Surgery 11/01/24
--- OUTSIDE RECORDS SUMMARY | 2025-06-17 08:55 | XMS_ITS | Clinical Summary ---
Author Organization [employer] ([place], [place], [place], [place], [place]) Address [address] [place] [address] Care Team Providers Care Angle Dozer Operator Name Role Phone Martinez Norton MD Primary Care Provider + [phone] Yeyo Pearson PA-C Unavailable [phone] Allergies Active Allergy Reactions Criticality Noted [...] Insurance MEDICARE PART A B Care Teams Angle Dozer Operator Relationship Specialty Start Date End Date Martinez Norton MD [address] [facility] [address] [place] [address] PCP - General Family Medicine 11/01/24 Yeyo Pearson PA-C [address] [facility] [address] [place] [address] Physician Credit Balance Specialist Orthopedic Surgery 11/01/24
--- NOTE | 2025-06-17 08:56 | XR_ITS ---
FINAL REPORT TECHNIQUE: Bone densitometry calculations of the lumbar spine and left hip were obtained. CLINICAL HISTORY: SCREENING prior 2021 COMPARISON: 12/16/2021 FINDINGS: Using L1-4, the bone mineral density of the spine is 0.984 g/cm2, corresponding to T-score of -0.6 and a Z score of 1.0. This is within the range of normal. The bone mineral density change versus baseline is 7%. Using the left hip, the bone mineral density of the femoral neck is 0.660 g/cm2, corresponding to a T-score of -1.7 and a Z-score of -0.3. This is within the range of osteopenia. The bone mineral density change versus baseline is 3.2%. Using the right hip, the bone mineral density of the femoral neck is 0.621 g/cm?, which corresponds to a T-score of -2.1 and a Z-score of -0.7. This is within the range of osteopenia. The bone mineral density change versus baseline of the right femoral neck is -5.6%. NOTE: T-score: Standard deviation compared with peak bone mass of young adult mean. *Following the recommendations of the International Society of Bone densitometry, classification of hip BMD is based on the lower of two T-scores; total hip or femoral neck. IMPRESSION: 1. Bone mineral density of the lumbar spine within the range of normal. 2. Bone mineral density of the bilateral femoral necks within the range of osteopenia. Reviewed, Interpreted and Dictated by Anabel Barillas MD Transcribed by Sophia Welch Authenticated and [facility]
--- OUTSIDE RECORDS SUMMARY | 2025-06-17 08:56 | XMS_ITS | Clinical Summary ---
Author Organization [facility] Address [address] [place] [address] Care Team Providers Care Cylinder Block Hole Reliner Name Role Phone Martinez Norton MD Primary Care Provider [phone] Allergies Active Allergy Reactions Criticality Noted Date [...] Next Due Influenza, injectable, quadrivalent 05/30/2022,1 08/03/2020 [employer] COVID-19 Vac cine (Purple Cap) 12+ 06/03/2021,10/17/2020,09/19/2020 [...] 9:00 AM EDT Office Visit [facility] Endocrinology [address] [place] [address] (3), Johnny Pavon Fellow Health Maintenance Due [...] 1-dose series) 2023 [facility]-Depression Screening 08/08/2023 08/08/2022 [id number]-12 Vaccine ( - season) 2025 06/03/2021, 10/17/2020, [...] Payer (Ef fective 2002-Present) Name:Celeste Serrato Member ID:[id number] Relation to Subscriber:Self Name:Celeste Serrato Subscriber ID:[id number] Payer ID:MEDICARE Group ID:Not on file Type:Medicare Address: [place] [id number] Care Teams Cylinder Block Hole Reliner Relationship Specialty Start Date End Date Martinez Norton MD [address] [facility] [address] [address] PCP - General 11/27/20
--- OUTSIDE RECORDS SUMMARY | 2025-06-17 08:56 | XMS_ITS | Clinical Summary ---
Author Organization [facility] Address [address] [place] [address] Care Team Providers Care Marketing Support Coordinator Name Role Phone Martinez Norton MD Primary Care Provider + [phone] Allergies Active Allergy Reactions Criticality Noted Date [...] Care Team (Late st Contact Info) Description 08/20/2025 8:30 AM EST Office Visit [facility] NEUROLOGY [address] [place] [address] Ck [place] MD [address] [place] [address] Health Maintenance Due Date Last Done Comments Annual Gynecologic Pelvic an d Breast Exam 1963 COLOGUARD 2008 COLON CANCER SCREENING 5 YEA [...] - [facility]
[address] [place] [address], from Last 3 Months or Most Recently Relevant to Health Maintenance Insurance MEDICARE A & B Care Teams Marketing Support Coordinator Relationship Specialty Start Date End Date Martinez Norton MD [address] [facility] [address] [place] [address] PCP - General 09/01/15
--- NOTE | 2025-06-17 08:57 | CT_ITS ---
FINAL REPORT TECHNIQUE: Thin section axial images were obtained through the lungs using a low-dose technique per lung cancer screening protocol. Reconstruction images were obtained using the axial data. Exam was performed using dose reduction technique. CLINICAL HISTORY: SCREENING smoker 1ppd x 40 years COMPARISON: Prior chest CT 06/11/2024, prior LDCT 12/19/2022 FINDINGS: CTDLvol: 2.90 DLP: 100.81 Current smoker 40 pack year history Lungs: Changes of emphysema are present. There is evidence of prior granulomatous disease. No acute pulmonary abnormality. There is a 4 mm right upper lobe nodule best seen on image #15 of series 4, stable. There is a 5 mm right upper lobe nodule best seen on image #18 of series 4, also stable. No new nodules or areas of consolidation are identified. Lymph nodes: There are stable mildly prominent AP nodes. No new adenopathy is present. Mediastinum: Heart size is normal. Prominent coronary artery calcifications are present. Pleura/pericardium: No pleural or pericardial effusion. Other: A stable left adrenal nodule is noted. IMPRESSION: Stable nodules when compared to the prior CT most recently of 06/11/2024. Lung RADS: 2S, the S designation for coronary artery calcifications. Recommendation: 12-month follow-up LDCT Reviewed, Interpreted and Dictated by Anabel Barillas MD Transcribed by Sophia Welch Authenticated and [facility]
== END 2025-06-17 23:59 | disposition home or self-care (01) ==
LOC: RAD 08:54
PROVIDERS: PCP Family Medicine; Visit Provider Family Medicine
DX: M85.851 Other specified disorders of bone density and structure, right thigh (principal); M85.852 Other specified disorders of bone density and structure, left thigh; I25.10 Atherosclerotic heart disease of native coronary artery without angina pectoris; M81.0 Age-related osteoporosis without current pathological fracture; R91.8 Other nonspecific abnormal finding of lung field; Z87.891 Personal history of nicotine dependence; Z78.0 Asymptomatic menopausal state; Z12.2 Encounter for screening for malignant neoplasm of respiratory organs
CPT/HCPCS: 71271; 77080